=== PATIENT | male | born 1960 | race Caucasian/White ===

== ENCOUNTER 2018-08-17 19:27 | Inpatient (IN) | payer OTHER ==
[~2018-08-17] VITALS: Ht 185.4 cm; Wt 132.5 kg
[2018-08-17] MEDS ORDERED: PIPER-TAZO 3.375 GM IV (PMX) 100 ML IVPB ONE (22:00)
[2018-08-17] MEDS ORDERED: VANCOMYCIN 1 GM (PMX) 250 ML IVPB ONE (22:00)
[2018-08-17] MEDS ORDERED: CEFTRIAXONE 2 GM/50 ML (PMX) 50 ML IVPB ONE (22:00)
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
[2018-08-17] MEDS ORDERED: NACL 0.9% 3 ML SYG IV SCH (23:00)
[2018-08-17] MEDS ORDERED: BISACODYL (EC) 5 MG TAB PO PRN (23:00)
[2018-08-17] MEDS ORDERED: DOCUSATE SODIUM 100 MG CAP PO PRN (23:00)
[2018-08-17] MEDS ORDERED: ACETAMINOPHEN 325 MG TAB PO PRN (23:00)
[2018-08-17] MEDS ORDERED: ONDANSETRON 4 MG TAB PO PRN (23:00)
[2018-08-17] MEDS ORDERED: CEFTRIAXONE 2 GM INJ IM ONE (23:00)
[2018-08-17] MEDS ORDERED: HEPARIN 5,000 UNIT/1 ML VIAL SC SCH (23:00)
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
[2018-08-18] MEDS ORDERED: LIDOCAINE 1% (MPF) 5 ML VIAL SC ONE (02:00)
[2018-08-18] MEDS ORDERED: HYDROmorphONE 2 MG/ML SYG IM ONE (03:56)
[2018-08-18] MEDS: HYDROmorphONE 1 MG/ML SYG IM SCH ×6 (04:00→19:00)
[2018-08-18 04:31] VITALS: Ht 185.4 cm; Wt 132.5 kg
[2018-08-18] MEDS ORDERED: PENDING SANTYL ORDER FOR WOUND CARE XX PRN (06:30)
[2018-08-18] MEDS ORDERED: MEVA40 PO (06:59)
[2018-08-18] MEDS ORDERED: ALPR2TAB PO (06:59)
[2018-08-18] MEDS ORDERED: LOSA25TA2 PO (06:59)
[2018-08-18] MEDS ORDERED: ARIP10TA12 PO (06:59)
[2018-08-18 07:21] VITALS: BP 120/59; PULSE 55; RESP 18
[2018-08-18 08:35] VITALS: BP 143/64; PULSE 58; RESP 18
--- NOTE | 2018-08-18 14:31 | PN ---
Date/Time of Note Date/Time of Note DATE: 08/18/18 TIME: 14:27 Assessment/Plan VTE Prophylaxis Risk score (from Nsg)>0 risk: 4 SCD applied (from Ns): No SCD contraindicated: bilateral LE trauma Pharmacological prophylaxis: heparin Lines/Catheters Urinary Cath still in place: No Assessment/Plan Problems: (1) Infected skin ulcer limited to breakdown of skin Status: Acute Comment: Is on antibiotics. Please note there can be a fungal component to this as well and he will be treated with an antifungal agent. Representatives from the amputation prevention center will be seeing him today (2) Skin graft failure Status: Chronic Comment: Noted. (3) Bilateral cellulitis of lower leg Status: Acute Comment: On aggressive antibiotic therapy (4) Venous insufficiency of both lower extremities Status: Chronic Comment: Noted. Consideration for usage of pentoxifylline (5) Hx of osteomyelitis Status: Chronic Comment: Noted. I do not know that this is still an active issue (6) Obesity (BMI 30-39.9) Status: Chronic Comment: Calorie restriction diet (7) Peripheral edema Status: Acute Comment: Due to venous insufficiency (8) S/P IVC filter Status: Chronic Comment: Reported by patient. We have not done imaging to look for this (9) History of deep venous thrombosis (DVT) of distal vein of right lower extremity Status: Chronic Comment: Reported by patient. Our venous ultrasounds do not demonstrate any acuity. The patient states this happened at the local [facility] facility in [place] Result Diagram: 08/18/18 0553 08/18/18 0557 Results 24hrs Laboratory Tests Test 08/18/18 05:53 08/18/18 05:55 08/18/18 05:56 08/18/18 05:57 White Blood Count 6.2 Red Blood Count 4.56 L Hemoglobin 11.2 L Hematocrit 37.4 L Mean Corpuscular 82.0 Volume Mean Corpuscular 24.6 L Hemoglobin Mean Corpuscular 29.9 L Hemoglobin Concent Red Cell 15.2 H Distribution Width Platelet Count 309 Mean Platelet Volume 9.5 Immature 0.500 H Granulocytes % Neutrophils % 66.7 Lymphocytes % 23.0 Monocytes % 7.4 Eosinophils % 1.6 Basophils % 0.8 Nucleated Red Blood 0.0 Cells % Immature 0.030 Granulocytes # Neutrophils # 4.1 Lymphocytes # 1.4 Monocytes # 0.5 Eosinophils # 0.1 Basophils # 0.1 Nucleated Red Blood 0.0 Cells # Erythrocyte 32 H Sedimentation Rate Prothrombin Time 13.6 Prothrombin Time 1.1 Ratio INR International 1.03 Normalized Ratio Activated 23.5 Partial Thromboplast Time C-Reactive Protein 4.9 H 4.9 H Magnesium Level 2.1 Thyroid Stimulating 2.150 Hormone (TSH) Hemoglobin A1c 6.1 H Sodium Level 140 Potassium Level 3.9 Chloride Level 102 Carbon Dioxide Level 28 Anion Gap 10 Blood Urea Nitrogen 16 Creatinine 1.36 H Est Glomerular 54 L Filtrat Rate mL/min Glucose Level 153 Calcium Level 8.7 Total Bilirubin 0.4 Direct Bilirubin 0.00 Indirect Bilirubin 0.4 Aspartate Amino 29 Transf (AST/SGOT) Alanine 19 Aminotransferase (AL T/SGPT) Alkaline Phosphatase 147 H Total Protein 8.4 H Albumin 3.6 Globulin 4.80 H Albumin/Globulin 0.75 Ratio Lipase 46 Subjective 24 Hr Interval Summary Free Text/Dictation 58-year-old male admitted at the direction of Dr. Monroy from the [facility]. He was apparently seen there roughly on and advised to go the ER for admission. He presented there yesterday 2 days later. He has lower extremity wounds that have been worsening bilaterally much worse on the right than on the left. He has a history of venous insufficiency. Constitutional: no complaints (Eyes fevers chills or sweats) Respiratory: no complaints Cardiovascular: no complaints Gastrointestinal: no complaints Genitourinary: no complaints Exam/Review of Systems Exam Vitals Vital Signs Date Temp Pulse Resp B/P (MAP) Pulse Ox O2 O2 Flow FiO2 Time Delivery Rate 08/18/18 98.5 58 18 143/64 97 Room Air 08:35 (90) Exam Impulsive gentleman who removed all the dressings from both legs on his own repetitively Constitutional: alert, oriented Respiratory: clear to auscultation, normal air movement Cardiovascular: regular rate and rhythm, nl pulses Gastrointestinal: soft, nl liver, spleen, non-tender Extremities: other (Bilateral lower extremity skin breakdown ulcers with 2 separate ones on the right-hand side multiple scaly and flaking skin.) Results Results 24hrs Laboratory Tests Test 08/18/18 05:53 08/18/18 05:55 08/18/18 05:56 08/18/18 05:57 White Blood Count 6.2 Red Blood Count 4.56 L Hemoglobin 11.2 L Hematocrit 37.4 L Mean Corpuscular 82.0 Volume Mean Corpuscular 24.6 L Hemoglobin Mean Corpuscular 29.9 L Hemoglobin Concent Red Cell 15.2 H Distribution Width Platelet Count 309 Mean Platelet Volume 9.5 Immature 0.500 H Granulocytes % Neutrophils % 66.7 Lymphocytes % 23.0 Monocytes % 7.4 Eosinophils % 1.6 Basophils % 0.8 Nucleated Red Blood 0.0 Cells % Immature 0.030 Granulocytes # Neutrophils # 4.1 Lymphocytes # 1.4 Monocytes # 0.5 Eosinophils # 0.1 Basophils # 0.1 Nucleated Red Blood 0.0 Cells # Erythrocyte 32 H Sedimentation Rate Prothrombin Time 13.6 Prothrombin Time 1.1 Ratio INR International 1.03 Normalized Ratio Activated 23.5 Partial Thromboplast Time C-Reactive Protein 4.9 H 4.9 H Magnesium Level 2.1 Thyroid Stimulating 2.150 Hormone (TSH) Hemoglobin A1c 6.1 H Sodium Level 140 Potassium Level 3.9 Chloride Level 102 Carbon Dioxide Level 28 Anion Gap 10 Blood Urea Nitrogen 16 Creatinine 1.36 H Est Glomerular 54 L Filtrat Rate mL/min Glucose Level 153 Calcium Level 8.7 Total Bilirubin 0.4 Direct Bilirubin 0.00 Indirect Bilirubin 0.4 Aspartate Amino 29 Transf (AST/SGOT) Alanine 19 Aminotransferase (AL T/SGPT) Alkaline Phosphatase 147 H Total Protein 8.4 H Albumin 3.6 Globulin 4.80 H Albumin/Globulin 0.75 Ratio Lipase 46 Medications Medication Current Medications IV Flush (NS 3 ml) 3 ml PER PROTOCOL IV ; Start 08/17/18 at 23:00 Ondansetron HCl (Zofran Tab) 4 mg Q6H PRN PO NAUSEA/VOMITING; Start 08/17/18 at 23:00 Acetaminophen (Tylenol Tab) 650 mg Q6H PRN PO .PAIN 1-3 OR TEMP; Start 08/17/18 at 23:00 Acetaminophen/ Hydrocodone Bitart ([place] (5/325)) 1 tab Q6H PRN PO .MOD PAIN 4- 6; Start 08/17/18 at 23:00 Morphine Sulfate (morphine) 2 mg Q4H PRN IV .SEVERE PAIN 7-10; Start 08/17/18 at 23:00 Docusate Sodium (Colace) 100 mg Q12H PRN PO .CONSTIPATION; Start 08/17/18 at 23:00 Bisacodyl (Dulcolax) 5 mg DAILY PRN PO .CONSTIPATION; Start 08/17/18 at 23:00 Hydromorphone HCl (Dilaudid) 1 mg Q3H IM Last administered on 08/18/18at 11:53; Admin Dose 1 MG; Start 08/18/18 at 04:00 Miscellaneous Information (Pending [facility] Order For Wound Care) This patient ricardo... PRN PRN XX WOUND CARE; Start 08/18/18 at 06:30 GISELL MENDEZ MD Aug 18, 2018 14:31
[2018-08-18 15:06] VITALS: BP 150/73; PULSE 62; RESP 17
[2018-08-18] MEDS: ITRACONAZOLE 100 MG CAP PO SCH (16:38)
[2018-08-18 20:25] VITALS: BP 139/60; PULSE 57; RESP 18
[2018-08-18] MEDS ORDERED: HYDROmorphONE 2 MG TAB PO PRN (20:30)
[2018-08-18] MEDS ORDERED: CEFTRIAXONE 2 GM INJ IM ONE (20:30)
[2018-08-18] MEDS: PENTOXIFYLLINE (SR) 400 MG TAB PO SCH (20:54)
[2018-08-19] MEDS: SODIUM HYPOCHLORITE (1/40) 1 APPLIC BTL IRR SCH ×3 (01:05→21:52)
[2018-08-19] MEDS: ITRACONAZOLE 100 MG CAP PO SCH ×3 (01:06→21:51)
[2018-08-19] MEDS: HYDROmorphONE 2 MG TAB PO PRN ×5 (01:07→23:08)
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
[2018-08-19 02:30] VITALS: BP 164/85; PULSE 62; RESP 18
[2018-08-19 08:23] VITALS: BP 101/50; PULSE 52; RESP 17
[2018-08-19] MEDS: PENTOXIFYLLINE (SR) 400 MG TAB PO SCH ×3 (09:37→21:52)
[2018-08-19 15:20] VITALS: BP 128/60; PULSE 61; RESP 17
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
[2018-08-19] MEDS ORDERED: VANCOMYCIN IV PER PHARMACY XX SCH (15:30)
[2018-08-19] MEDS ORDERED: VANCOMYCIN HCL 2 GM in SOD CHLORIDE 0.9% 500 ML IVPB SCH (16:00)
--- NOTE | 2018-08-19 16:14 | SP ---
DATE OF PROCEDURE: PROCEDURE: Central line placement. INDICATION: No IV access and need for IV antibiotics. DESCRIPTION OF PROCEDURE: The patient was placed in Trendelenburg position. The left internal jugul ar site was cleaned and prepped in usual sterile manner. A 5 mL of 1% lidocaine was infiltrated into the skin. Using ultrasound guidance, the internal jugular vein was located. Large bore needle pass ed into the internal jugular vein followed by guidewire. Following Seldinger technique for dilatatio n, triple lumen catheter was passed over guidewire and secured into place. The patient had good flow through all 3 ports and no obvious initial complications. Post-central line placement chest x-ray h as been requested. Dictated By: KALYAN TRINH MD SV/CHUCK Conf#: [id number] DID#: [id number] CC: IRLANDA PÉREZ MD; HIRO PHAM MD;*EndCC*
[2018-08-19] MEDS: PIPER-TAZO 3.375 GM IV (PMX) 100 ML IVPB SCH (18:22)
[2018-08-19 19:30] VITALS: BP 122/59; PULSE 54; RESP 17
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
[2018-08-19] MEDS: morphine 2 MG INJ IV PRN (21:50)
[2018-08-19] MEDS: ATORVASTATIN 10 MG TAB PO SCH (21:51)
[2018-08-19] MEDS: LOSARTAN 25 MG TAB PO SCH (21:51)
[2018-08-19] MEDS: HEPARIN 5,000 UNIT/1 ML VIAL SC SCH (21:53)
[2018-08-20] MEDS: PIPER-TAZO 3.375 GM IV (PMX) 100 ML IVPB SCH ×4 (00:39→17:33)
[2018-08-20 01:54] VITALS: BP 110/55; PULSE 53; RESP 18
[2018-08-20] MEDS: VANCOMYCIN HCL 1.75 GM in SOD CHLORIDE 0.9% 500 ML IVPB SCH ×2 (05:55→18:42)
[2018-08-20 08:01] VITALS: BP 122/65; PULSE 50; RESP 18
[2018-08-20 08:37] VITALS: PULSE 55
[2018-08-20] MEDS: LOSARTAN 25 MG TAB PO SCH ×2 (09:00→21:00)
[2018-08-20] MEDS: SODIUM HYPOCHLORITE (1/40) 1 APPLIC BTL IRR SCH ×3 (09:00→21:06)
[2018-08-20] MEDS: ARIPIPRAZOLE 10 MG TAB PO SCH (09:12)
[2018-08-20] MEDS: ITRACONAZOLE 100 MG CAP PO SCH ×2 (09:14→21:01)
[2018-08-20] MEDS: PENTOXIFYLLINE (SR) 400 MG TAB PO SCH ×3 (09:17→21:01)
[2018-08-20] MEDS: HEPARIN 5,000 UNIT/1 ML VIAL SC SCH ×2 (09:17→21:02)
[2018-08-20] MEDS: HYDROmorphONE 2 MG TAB PO PRN ×4 (09:19→22:56)
--- NOTE | 2018-08-20 11:19 | CONS ---
Assessment/Plan Assessment/Plan Assessment/Plan (Daily) Bilateral lower extremity cellulitis. Venous stasis. Lymphedema. Failed inferior vena cava filter, right lower extremity. Pain. Degenerative joint disease, right knee. Venous insufficiency. Onychomycosis. Tinea pedis. Plan Continue with daily dressing changes. Plan for OR debridement with possible application of allograft and wound VAC. Keep patient NPO after midnight tonight. Wound cultures pending. Continue abx and antifungal therapy. Patient wound benefit from compression therapy. Consultation Date/Type/Reason Admit Date/Time Aug 17, 2018 at 22:54 Initial Consult Date Date/Time of Note DATE: 08/20/18 TIME: 24 HR Interval Summary Free Text/Dictation No acute events overnight. Exam/Review of Systems Exam Vitals Vital Signs Date Temp Pulse Resp B/P (MAP) Pulse Ox O2 O2 Flow FiO2 Time Delivery Rate 08/20/18 98.0 55 08:37 08/20/18 18 122/65 99 Room Air 08:01 (84) Intake and Output 08/19/18 08/19/18 08/20/18 1515:00 23:00 07:00 IntakeIntake Total 100 ml 700 ml OutputOutput Total 250 ml BalanceBalance -150 ml 700 ml Exam Bilateral lower extremity with lymphedema, venous stasis, dry skin. Wounds with extensive tissue loss on the right anterior to posterior lower leg measuring 15.5 x 15 x 0.5 cm with serous drainage, left anterior lower leg 15 x 11.5 x 0.5 cm. There is no tunneling or undermining. The patient with pain with light touch to the right lower extremity. The patient has 2+ DP pulse, PT is nonpalpable, 2+ popliteal pulses bilaterally. Mycotic nails with tinea present. Results Result Diagram: 08/20/18 0516 08/20/18 0516 Results 24hrs Laboratory Tests Test 08/20/18 05:16 White Blood Count 6.7 Red Blood Count 4.14 L Hemoglobin 10.2 L Hematocrit 34.1 L Mean Corpuscular Volume 82.4 Mean Corpuscular Hemoglobin 24.6 L Mean Corpuscular Hemoglobin Concent 29.9 L Red Cell Distribution Width 15.5 H Platelet Count 260 Mean Platelet Volume 9.9 Immature Granulocytes % 0.300 Neutrophils % 77.1 H Lymphocytes % 14.9 L Monocytes % 5.2 Eosinophils % 1.8 Basophils % 0.7 Nucleated Red Blood Cells % 0.0 Immature Granulocytes # 0.020 Neutrophils # 5.2 Lymphocytes # 1.0 Monocytes # 0.4 Eosinophils # 0.1 Basophils # 0.1 Nucleated Red Blood Cells # 0.0 Sodium Level 141 Potassium Level 3.9 Chloride Level 104 Carbon Dioxide Level 29 Anion Gap 8 Blood Urea Nitrogen 20 Creatinine 1.37 H Est Glomerular Filtrat Rate mL/min 53 L Glucose Level 134 Calcium Level 8.3 L Total Bilirubin 0.1 L Direct Bilirubin 0.00 Indirect Bilirubin 0.1 Aspartate Amino Transf (AST/SGOT) 21 Alanine Aminotransferase (ALT/SGPT) 28 Alkaline Phosphatase 132 H Total Protein 7.2 Albumin 3.0 L Globulin 4.20 H Albumin/Globulin Ratio 0.71 Medications Medication Current Medications IV Flush (NS 3 ml) 3 ml PER PROTOCOL IV ; Start 08/17/18 at 23:00 Ondansetron HCl (Zofran Tab) 4 mg Q6H PRN PO NAUSEA/VOMITING; Start 08/17/18 at 23:00 Acetaminophen (Tylenol Tab) 650 mg Q6H PRN PO .PAIN 1-3 OR TEMP; Start 08/17/18 at 23:00 Acetaminophen/ Hydrocodone Bitart ([place] (5/325)) 1 tab Q6H PRN PO .MOD PAIN 4- 6; Start 08/17/18 at 23:00 Morphine Sulfate (morphine) 2 mg Q4H PRN IV .SEVERE PAIN 7-10 Last administered on 08/19/18at 21:50; Admin Dose 2 MG; Start 08/17/18 at 23:00 Docusate Sodium (Colace) 100 mg Q12H PRN PO .CONSTIPATION; Start 08/17/18 at 23:00 Bisacodyl (Dulcolax) 5 mg DAILY PRN PO .CONSTIPATION; Start 08/17/18 at 23:00 [facility] This patient ricardo... PRN PRN XX WOUND CARE; Start 08/18/18 at 06:30 Itraconazole (Sporanox) 200 mg BID PO Last administered on 08/20/18at 09:14; Admin Dose 200 MG; Start 08/18/18 at 15:30; Stop 08/25/18 at 15:29 Pentoxifylline (Trental) 400 mg TID PO Last administered on 08/20/18 09:17; Admin Dose 400 MG; Start 08/18/18 at 21:00 Hydromorphone HCl (Dilaudid) 3 mg Q4H PRN PO SEVERE PAIN LEVEL 7-10 Last administered on 08/20/18 09:19; Admin Dose 3 MG; Start 08/19/18 at 00:30 Sodium Hypochlorite (Dakin'S (Dilute )) 1 applic BID IRR Last administered on 08/19/18 21:52; Admin Dose 1 APPLIC; Start 08/18/18 at 23:00 Aripiprazole (Abilify) 10 mg DAILY PO Last administered on 08/20/18 09:12; Admin Dose 10 MG; Start 08/20/18 at 09:00 Losartan Potassium (Cozaar) 25 mg BID PO Last administered on 08/19/18 21:51; Admin Dose 25 MG; Start 08/19/18 at 21:00 Atorvastatin Calcium (Lipitor) 10 mg DAILY@21 PO Last administered on 08/19/18 21:51; Admin Dose 10 MG; Start 08/19/18 at 21:00 Heparin Sodium (Porcine) (Heparin (5000 Units/1ml)) 5,000 unit BID SC Last administered on 08/20/18 09:17; Admin Dose 5,000 UNIT; Start 08/19/18 at 21:00 Vancomycin HCl (Vanco Iv Per Pharmacy) VANCOMYCIN PER PHARMACY PER PROTOCOL XX ; Start 08/19/18 at 15:30 Piperacillin Sod/ Tazobactam Sod 100 ml @ 200 mls/hr Q6 IVPB Last administered on 08/20/18 05:11; Admin Dose 200 MLS/HR; Start 08/19/18 at 18:00 Vancomycin HCl 1.75 gm/Sodium Chloride 500 ml @ 125 mls/hr Q12H IVPB Last administered on 08/20/18 05:55; Admin Dose 125 MLS/HR; Start 08/20/18 at 06:00 ROSEANNE BAIRD DPM Aug 20, 2018 11:19
--- NOTE | 2018-08-20 12:48 | PREAC ---
Date/Time of Note Date/Time of Note DATE: 08/20/18 TIME: 12:47 Anesthesia Eval and Record Evaluation Time Pre-Procedure Interview DATE: 08/20/18 TIME: 12:47 Age 58 Sex male NPO: 8 hrs Preoperative diagnosis Bilateral lower extremity cellulitis. Planned procedure BILATERAL LOWER EXTREMITY DEBRIEDMENT Past Medical History Past Medical History: Includes Cardio: HTN, Dyslipidemia GI: Morbid obesity Surgery & Anesthesia Issues No known issue Meds Anticoagulation: No Beta Richard within 24 hr: No Reason Beta Richard not given: Pt. not on B-Richard Reported Medications Aripiprazole* (Abilify*) 10 Mg Tablet, 10 MG PO DAILY, #30 TAB 08/18/18 Alprazolam* (Xanax*) 2 Mg Tablet, 2 MG PO TID, TAB 08/18/18 Losartan Potassium* (Cozaar*) 25 Mg Tablet, 25 MG PO BID, #60 TAB 08/18/18 Lovastatin (Lovastatin) 40 Mg Tablet, 30 MG PO HS, TAB 08/18/18 Current Medications IV Flush (NS 3 ml) 3 ml PER PROTOCOL IV ; Start 08/17/18 at 23:00 Ondansetron HCl (Zofran Tab) 4 mg Q6H PRN PO NAUSEA/VOMITING; Start 08/17/18 at 23:00 Acetaminophen (Tylenol Tab) 650 mg Q6H PRN PO .PAIN 1-3 OR TEMP; Start 08/17/18 at 23:00 Acetaminophen/ Hydrocodone Bitart ([place] (5/325)) 1 tab Q6H PRN PO .MOD PAIN 4- 6; Start 08/17/18 at 23:00 Morphine Sulfate (morphine) 2 mg Q4H PRN IV .SEVERE PAIN 7-10 Last administered on 08/19/18at 21:50; Admin Dose 2 MG; Start 08/17/18 at 23:00 Docusate Sodium (Colace) 100 mg Q12H PRN PO .CONSTIPATION; Start 08/17/18 at 23 :00 Bisacodyl (Dulcolax) 5 mg DAILY PRN PO .CONSTIPATION; Start 08/17/18 at 23:00 [facility] This patient ricardo... PRN PRN XX WOUND CARE; Start 08/18/18 at 06:30 Itraconazole (Sporanox) 200 mg BID PO Last administered on 08/20/18 09:14; Admin Dose 200 MG; Start 08/18/18 at 15:30; Stop 08/25/18 at 15:29 Pentoxifylline (Trental) 400 mg TID PO Last administered on 08/20/18 09:17; Admin Dose 400 MG; Start 08/18/18 at 21:00 Hydromorphone HCl (Dilaudid) 3 mg Q4H PRN PO SEVERE PAIN LEVEL 7-10 Last administered on 08/20/18 09:19; Admin Dose 3 MG; Start 08/19/18 at 00:30 Sodium Hypochlorite (Dakin'S (Dilute )) 1 applic BID IRR Last administered on 08/19/18 21:52; Admin Dose 1 APPLIC; Start 08/18/18 at 23:00 Aripiprazole (Abilify) 10 mg DAILY PO Last administered on 08/20/18 09:12; Admin Dose 10 MG; Start 08/20/18 at 09:00 Losartan Potassium (Cozaar) 25 mg BID PO Last administered on 08/19/18 21:51; Admin Dose 25 MG; Start 08/19/18 at 21:00 Atorvastatin Calcium (Lipitor) 10 mg DAILY@21 PO Last administered on 08/19/18 21:51; Admin Dose 10 MG; Start 08/19/18 at 21:00 Heparin Sodium (Porcine) (Heparin (5000 Units/1ml)) 5,000 unit BID SC Last administered on 08/20/18 09:17; Admin Dose 5,000 UNIT; Start 08/19/18 at 21:00 Vancomycin HCl (Vanco Iv Per Pharmacy) VANCOMYCIN PER PHARMACY PER PROTOCOL XX ; Start 08/19/18 at 15:30 Piperacillin Sod/ Tazobactam Sod 100 ml @ 200 mls/hr Q6 IVPB Last administered on 08/20/18 05:11; Admin Dose 200 MLS/HR; Start 08/19/18 at 18:00 Vancomycin HCl 1.75 gm/Sodium Chloride 500 ml @ 125 mls/hr Q12H IVPB Last administered on 08/20/18 05:55; Admin Dose 125 MLS/HR; Start 08/20/18 at 06:00 Meds reviewed: Yes Allergies Coded Allergies: Phenothiazines (Verified Allergy, Intermediate, 08/18/18) prochlorperazine (Verified Allergy, Intermediate, 08/18/18) Allergies Reviewed: Yes Labs/Studies Labs Reviewed: Reviewed by anesthesiologist Result Diagram: 08/20/18 0516 08/20/18 0516 Laboratory Tests 08/20/18 05:16 test: N/A Studies: CXR (Cardiac silhouette upper limits of normal in size, otherwise no acute findings. ) Pre-procedure Exam Last vitals Vital Signs Date Temp Pulse Resp B/P (MAP) Pulse Ox O2 O2 Flow FiO2 Time Delivery Rate 08/20/18 98.0 55 08:37 08/20/18 18 122/65 99 Room Air 08:01 (84) Airway: Adequate mouth opening Mallampati: Mallampati II Teeth: Normal Lung: Normal Heart: Normal ASA Physical Status ASA physical status: 3 Emergency: None Planned Anesthetic General/MAC: ETT Pre-operative Attestations Prior to commencing anesthesia and surgery, the patient was re-evaluated, there was verification of: *The patient's identity *The results of appropriate recent lab work and preoperative vital signs *The above evaluation not changing prior to induction *Anesthetic plan, risk benefits, alternative and complications discussed with patient/family; questions answered; patient/family understands, accepts and wishes to proceed. RABIA HUERTA Aug 20, 2018 12:48
[2018-08-20 14:00] VITALS: BP 133/60; PULSE 57; RESP 19
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
--- NOTE | 2018-08-20 18:57 | CONS ---
Assessment/Plan Assessment/Plan Hospital Course (Demo Recall) No acute changes overnight patient is sleeping looks comfortable no fevers vital signs stable BUN 20 creatinine 1.37 WBC 6.7 platelets 260 neutrophils 77.1 Microbiology: Wound culture growing gram-negative rods and diphtheroids Indwelling: Left IJ triple-lumen catheter Antimicrobials: Vanco Zosyn PHYSICAL EXAMINATION: GENERAL: Well-developed, obese, middle-aged man who is in no distress. HEENT: Head is atraumatic, normocephalic. NECK: Supple. CHEST: Rise symmetrical. Breath sounds clear, diminished to bases. HEART: S1, S2. ABDOMEN: Soft. Bowel tones are present. EXTREMITIES: With bilateral lower extremities edema, below knee with dressings intact and some drainage present. Assessment: 1. Acute on chronic bilateral lower extremity cellulitis with chronic venous stasis 2. Obesity 3. Acute kidney injury 4. Hypertension 5. History of DVT Plan: Patient is stable, continue present care and antibiotics, await for final cultures, follow podiatry recommendations Consultation Date/Type/Reason Admit Date/Time Aug 17, 2018 at 22:54 Initial Consult Date Type of Consult id Date/Time of Note DATE: 08/20/18 TIME: 18:53 Exam/Review of Systems Exam Vitals Vital Signs Date Temp Pulse Resp B/P (MAP) Pulse Ox O2 O2 Flow FiO2 Time Delivery Rate 08/20/18 98.0 57 19 133/60 98 Room Air 14:00 (84) Intake and Output 08/19/18 08/19/18 08/20/18 1515:00 23:00 07:00 IntakeIntake Total 100 ml 700 ml OutputOutput Total 250 ml BalanceBalance -150 ml 700 ml Results Result Diagram: 08/20/18 0516 08/20/18 0516 Results 24hrs Laboratory Tests Test 08/20/18 05:14 08/20/18 05:16 Iron Level 27 L Total Iron Binding Capacity 270 Percent Iron Saturation 10 L White Blood Count 6.7 Red Blood Count 4.14 L Hemoglobin 10.2 L Hematocrit 34.1 L Mean Corpuscular Volume 82.4 Mean Corpuscular Hemoglobin 24.6 L Mean Corpuscular Hemoglobin Concent 29.9 L Red Cell Distribution Width 15.5 H Platelet Count 260 Mean Platelet Volume 9.9 Immature Granulocytes % 0.300 Neutrophils % 77.1 H Lymphocytes % 14.9 L Monocytes % 5.2 Eosinophils % 1.8 Basophils % 0.7 Nucleated Red Blood Cells % 0.0 Immature Granulocytes # 0.020 Neutrophils # 5.2 Lymphocytes # 1.0 Monocytes # 0.4 Eosinophils # 0.1 Basophils # 0.1 Nucleated Red Blood Cells # 0.0 Sodium Level 141 Potassium Level 3.9 Chloride Level 104 Carbon Dioxide Level 29 Anion Gap 8 Blood Urea Nitrogen 20 Creatinine 1.37 H Est Glomerular Filtrat Rate mL/min 53 L Glucose Level 134 Calcium Level 8.3 L Total Bilirubin 0.1 L Direct Bilirubin 0.00 Indirect Bilirubin 0.1 Aspartate Amino Transf (AST/SGOT) 21 Alanine Aminotransferase (ALT/SGPT) 28 Alkaline Phosphatase 132 H Total Protein 7.2 Albumin 3.0 L Globulin 4.20 H Albumin/Globulin Ratio 0.71 Medications Medication Current Medications IV Flush (NS 3 ml) 3 ml PER PROTOCOL IV ; Start 08/17/18 at 23:00 Ondansetron HCl (Zofran Tab) 4 mg Q6H PRN PO NAUSEA/VOMITING; Start 08/17/18 at 23:00 Acetaminophen (Tylenol Tab) 650 mg Q6H PRN PO .PAIN 1-3 OR TEMP; Start 08/17/18 at 23:00 Acetaminophen/ Hydrocodone Bitart ([place] (5/325)) 1 tab Q6H PRN PO .MOD PAIN 4- 6; Start 08/17/18 at 23:00 Morphine Sulfate (morphine) 2 mg Q4H PRN IV .SEVERE PAIN 7-10 Last administered on 08/19/18at 21:50; Admin Dose 2 MG; Start 08/17/18 at 23:00 Docusate Sodium (Colace) 100 mg Q12H PRN PO .CONSTIPATION; Start 08/17/18 at 23:00 Bisacodyl (Dulcolax) 5 mg DAILY PRN PO .CONSTIPATION; Start 08/17/18 at 23:00 [facility]isc[facility] This patient ricardo... PRN PRN XX WOUND CARE; Start 08/18/18 at 06:30 Itraconazole (Sporanox) 200 mg BID PO Last administered on 08/20/18at 09:14; Admin Dose 200 MG; Start 08/18/18 at 15:30; Stop 08/25/18 at 15:29 Pentoxifylline (Trental) 400 mg TID PO Last administered on 08/20/18 13:12; Admin Dose 400 MG; Start 08/18/18 at 21:00 Hydromorphone HCl (Dilaudid) 3 mg Q4H PRN PO SEVERE PAIN LEVEL 7-10 Last a dministered on 08/20/18 17:34; Admin Dose 3 MG; Start 08/19/18 at 00:30 Sodium Hypochlorite (Dakin'S (Dilute )) 1 applic BID IRR Last administered on 08/20/18 16:36; Admin Dose 1 APPLIC; Start 08/18/18 at 23:00 Aripiprazole (Abilify) 10 mg DAILY PO Last administered on 08/20/18 09:12; Admin Dose 10 MG; Start 08/20/18 at 09:00 Losartan Potassium (Cozaar) 25 mg BID PO Last administered on 08/19/18 21:51; Admin Dose 25 MG; Start 08/19/18 at 21:00 Atorvastatin Calcium (Lipitor) 10 mg DAILY@21 PO Last administered on 08/19/18 21:51; Admin Dose 10 MG; Start 08/19/18 at 21:00 Heparin Sodium (Porcine) (Heparin (5000 Units/1ml)) 5,000 unit BID SC Last administered on 08/20/18 09:17; Admin Dose 5,000 UNIT; Start 08/19/18 at 21:00 Vancomycin HCl (Vanco Iv Per Pharmacy) VANCOMYCIN PER PHARMACY PER PROTOCOL XX ; Start 08/19/18 at 15:30 Piperacillin Sod/ Tazobactam Sod 100 ml @ 200 mls/hr Q6 IVPB Last administered on 08/20/18 17:33; Admin Dose 200 MLS/HR; Start 08/19/18 at 18:00 Vancomycin HCl 1.75 gm/Sodium Chloride 500 ml @ 125 mls/hr Q12H IVPB Last administered on 08/20/18 18:42; Admin Dose 125 MLS/HR; Start 08/20/18 at 06:00 Miscellaneous Information (*Rx Drug Level Order Reminder*) 1 ONCE ONCE XX ; Start 08/21/18 at 05:00; Stop 08/21/18 at 05:01 SEAN YANEZ NP Aug 20, 2018 18:57
[2018-08-20 19:30] VITALS: BP 135/65; PULSE 55; RESP 20
[2018-08-20] MEDS: ATORVASTATIN 10 MG TAB PO SCH (21:01)
[2018-08-20 22:54] VITALS: PULSE 67
[2018-08-21] VITALS (17 sets, daily range): BP systolic 115–169; BP diastolic 58–86; PULSE 55–62; RESP 10–19
[2018-08-21] MEDS: PIPER-TAZO 3.375 GM IV (PMX) 100 ML IVPB SCH ×3 (00:03→12:18)
[2018-08-21] MEDS: morphine 2 MG INJ IV PRN ×3 (00:08→22:53)
[2018-08-21] MEDS: HYDROmorphONE 2 MG TAB PO PRN ×4 (04:36→21:05)
[2018-08-21] MEDS: VANCOMYCIN HCL 1.75 GM in SOD CHLORIDE 0.9% 500 ML IVPB SCH ×2 (06:00→18:18)
[2018-08-21] MEDS ORDERED: ONDANSETRON 4 MG INJ ONE (07:00)
[2018-08-21] MEDS ORDERED: MIDAZOLAM 1 MG/ML 2 ML INJ ONE (07:26)
[2018-08-21] MEDS ORDERED: PROPOFOL 20 ML ONE (07:26)
[2018-08-21] MEDS ORDERED: FENTAnyl 50 MCG/ML VIAL ONE (07:26)
[2018-08-21] MEDS ORDERED: ROPIVACAINE 0.2% 20 ML VIAL ONE (07:29)
[2018-08-21] MEDS ORDERED: METOCLOPRAMIDE 10 MG INJ ONE (07:34)
--- NOTE | 2018-08-21 08:04 | HPN ---
Date/Time of Note Date/Time of Note DATE: 08/21/18 TIME: 08:04 Interval H&P Admission Note Pt. seen H&P reviewed: No system changes ROSEANNE BAIRD DPM Aug 21, 2018 08:04
[2018-08-21] MEDS ORDERED: POLYMYXIN/BACITRACIN 1L IRRIG IRR ONE ×2 (08:43)
[2018-08-21] MEDS ORDERED: BACITRACIN 50000 UNITS INJ IRR ONE (08:43)
[2018-08-21] MEDS: PENTOXIFYLLINE (SR) 400 MG TAB PO SCH ×3 (09:00→21:29)
[2018-08-21] MEDS: ITRACONAZOLE 100 MG CAP PO SCH ×2 (09:00→21:29)
[2018-08-21] MEDS: HEPARIN 5,000 UNIT/1 ML VIAL SC SCH ×2 (09:00→21:28)
[2018-08-21] MEDS: ARIPIPRAZOLE 10 MG TAB PO SCH (09:00)
[2018-08-21] MEDS: LOSARTAN 25 MG TAB PO SCH ×2 (09:00→21:30)
[2018-08-21] MEDS: SODIUM HYPOCHLORITE (1/40) 1 APPLIC BTL IRR SCH ×2 (09:00→21:00)
[2018-08-21] MEDS ORDERED: LIDOCAINE 2% (SDV) 5 ML INJ ONE (09:11)
--- NOTE | 2018-08-21 09:18 | PN ---
DATE: 08/21/2018 SUBJECTIVE: The patient is stable, no events overnight. OBJECTIVE: VITAL SIGNS: Blood pressure is 122/58, respirations 18, pulse 65, temperature 98.0. HEENT: Head is normocephalic. NECK: Supple. HEART: Regular rate. LUNGS: Show diminished breath sounds at the base. ABDOMEN: Soft, nontender to palpation without rebound or guarding. EXTREMITIES: Negative for clubbing, cyanosis. Positive edema. DERMATOLOGIC: No rashes. MUSCULOSKELETAL: No joint effusion. NEUROLOGIC: No change in exam. MEDICATIONS: Reviewed. LABORATORY DATA: From 08/21/2018 was reviewed. IMAGING STUDY: The patient's renal ultrasound shows bilateral cortical thinning. No evidence of hyd ronephrosis. ASSESSMENT AND PLAN: 1. Nonoliguric acute kidney injury on top of chronic kidney disease with unknown baseline creatinine . Etiology of acute kidney injury is possibly hemodynamics. The patient's renal ultrasound does linn w increased echogenicity consistent with possible chronic kidney disease. The patient's urinalysis, urine electrolytes are still pending. Recommendation at this point is to continue current treatment plans, supportive care, renally dose all medicines. We would consider adjusting antibiotic therapy, possibly discontinue vancomycin. We will continue to monitor closely. 2. Chronic kidney disease. Underlying etiology is unclear, possibly due to previous nephrotoxicity, questionable renal artery stenosis. The patient's renal ultrasound did show poor blood flow from th e renal vasculature. We will consider obtaining an arterial renal ultrasound. 3. Anemia. Continue to monitor hemoglobin and hematocrit levels. The patient has evidence of iron deficiency. We will consider starting IV iron. 4. Mineral bone disorder. Monitor calcium and phosphorus levels. 5. Bilateral lower extremity cellulitis. Continue current antibiotic regimen. Follow up with podanthony try. Continue wound care. 6. Chronic venous stasis. Continue medical management. 7. History of deep venous thrombosis, status post inferior vena cava filter placement. 8. Hypertension. Continue current blood pressure regimen. 9. Dyslipidemia. Continue statin therapy. 10. Depression. Continue current medical management. Dictated By: LUIS ABDI DO NR/NTS Conf#: [id number] DID#: [id number] CC: IRLANDA PÉREZ MD; HIRO PHAM MD;*EndCC*
--- NOTE | 2018-08-21 10:01 | SIPON ---
Date/Time of Note Date/Time of Note DATE: 08/21/18 TIME: 10:00 Operative Report Preoperative Diagnosis bilateral lower extremity venous ulceration Venous insufficiency Edema lymphaedema Postoperative Diagnosis bilateral lower extremity venous ulceration Venous insufficiency Edema lymphaedema Operation/Procedure Performed bilateral lower extremity excisional debridement application of skin allograft application of wound VAC Surgeon Niranjan Baird DPM phys assistant none Anesthesia: general Estimated blood loss: 0 - 10 ml's Transfusion Required none Specimen bilateral wound pathology bilateral post lavage cultures Grafts/Implants none Complications none NIRANJAN BAIRD DPM Aug 21, 2018 10:01
--- NOTE | 2018-08-21 10:03 | OPR ---
Date/Time of Note Date/Time of Note DATE: 08/21/18 TIME: 10:02 Operative Report Preoperative Diagnosis bilateral lower extremity venous ulceration Venous insufficiency Edema lymphaedema Postoperative Diagnosis bilateral lower extremity venous ulceration Venous insufficiency Edema lymphaedema Operation/Procedure Performed bilateral lower extremity excisional debridement application of skin allograft application of wound VAC Surgeon Niranjan Baird DPM Flake Drier none Anesthesia Type: general Estimated Blood Loss: 0 - 10 ml's Transfusion none Specimen bilateral wound pathology bilateral post lavage cultures Grafts/Implants Primatrix Ag skin allograft bilateral lower extremities. Complications none Indications 58 y/o M patient with chronic venous ulcerations, edema, and venous insufficiency had failed conservative local wound care is amenable to surgical intervention at this time. All of the patient's questions and concerns were addressed, no promises or guarantees were given. Procedure Description Patient was brought into the OR and placed on the OR table in the supine position. A preoperative lower extremity block was performed bilaterally by the anesthesia team. The bilateral lower extremities were scrubbed, prepped, and draped in the usual aseptic manner. Attention was directed to the left lower extremity ulceration site which measured 15 x 10.5 x 0.3cm, wound base was fibrogranular and surrounding hyperkeratotic tissue and skin slough was appreciated. There was no purulence, no probing to bone, and no proximal streaking appreciated. There were hemosiderin deposits appreciated. Excisional debridement of skin/subq of the left venous ulcerations using a curette and versajet. Fibrotic tissue, hyperkeratotic tissue, biofilm, and slough was removed from the wound bed. Greater than 100cm2 of area was debrided. Copious antibiotic infused pulse lavage was used for irrigation at the ulceration site. Left wound pathology s pecimen and post lavage cultures were obtained. A skin allograft was applied to the left lower extremity ulcer site and secured with skin eva. Xeroform and dry sterile dressings with compression was applied along with a wound VAC set at 125mmHg low continuous therapy. Next, attention was directed to the right lower extremity ulceration site which measured 16 x 14.5 x 0.3cm, wound base was fibrogranular and surrounding hyperkeratotic tissue and skin slough was appreciated. There was no purulence, no probing to bone, and no proximal streaking appreciated. There were hemosiderin deposits appreciated. Excisional debridement of skin/subq of the right venous ulcerations using a curette and versajet. Fibrotic tissue, hyperkeratotic tissue, biofilm, and slough was removed from the wound bed. Greater than 100cm2 of area was debrided. Copious antibiotic infused pulse lavage was used for irrigation at the ulceration site. Right wound pathology specimen and post lavage cultures were obtained. A skin allograft was applied to the right lower extremity ulcer site and secured with skin eva. Xeroform and dry sterile dressings with compression was applied along with a wound VAC set at 125mmHg low continuous therapy. Patient was transferred to PACU with vital signs stable and neurovascular status intact. NIRANJAN BAIRD DPM Aug 21, 2018 10:03
[2018-08-21] MEDS ORDERED: IPRATROPIUM (NEB) 0.5 MG/2.5 ML AMP HHN PRN (10:30)
[2018-08-21] MEDS ORDERED: LORAZEPAM 2 MG INJ IV PRN (10:30)
[2018-08-21] MEDS ORDERED: MIDAZOLAM 1 MG/ML 2 ML INJ IV PRN (10:30)
[2018-08-21] MEDS ORDERED: MEPERIDINE 25 MG INJ IV PRN (10:30)
[2018-08-21] MEDS ORDERED: hydrALAzine 20 MG INJ IV PRN (10:30)
[2018-08-21] MEDS ORDERED: HYDROmorphONE 1 MG/5 ML IV SYRINGE IV PRN ×2 (10:30)
[2018-08-21] MEDS ORDERED: FENTAnyl 50 MCG/ML VIAL IV PRN ×2 (10:30)
[2018-08-21] MEDS ORDERED: ONDANSETRON 4 MG INJ IV PRN (10:30)
[2018-08-21] MEDS ORDERED: LABETALOL HCL 20MG INJ IV PRN (10:30)
[2018-08-21] MEDS ORDERED: LEVALBUTEROL (NEB) 1.25 MG/0.5 ML AMP HHN PRN (10:30)
[2018-08-21] MEDS ORDERED: DIPHENHYDRAMINE 50 MG INJ IV PRN (10:30)
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
--- NOTE | 2018-08-21 14:02 | CONS ---
Assessment/Plan Assessment/Plan Hospital Course (Demo Recall) No acute changes patient is awake looks comfortable no fevers overnight he is status post bilateral lower extremity debridement with skin allograft application and wound VAC placement this morning. Microbiology: Wound culture growing pseudomonas aeruginosa, staph aureus, Corynebacterium species Indwelling: Left IJ triple-lumen catheter Antimicrobials: Vanco Zosyn PHYSICAL EXAMINATION: GENERAL: Well-developed, obese, middle-aged man who is in no distress. HEENT: Head is atraumatic, normocephalic. NECK: Supple. CHEST: Rise symmetrical. Breath sounds clear, diminished to bases. HEART: S1, S2. ABDOMEN: Soft. Bowel tones are present. EXTREMITIES: With bilateral lower extremities edema, below knee with dressings intact and some drainage present. Assessment: 1. Acute on chronic bilateral lower extremity cellulitis with chronic venous stasis 2. Obesity 3. Acute kidney injury 4. Hypertension 5. History of DVT Plan: Stable post procedure, change Zosyn to cefepime, await for final cultures, local wound care per podiatry, vascular recommendations Consultation Date/Type/Reason Admit Date/Time Aug 17, 2018 at 22:54 Initial Consult Date Type of Consult id Date/Time of Note DATE: 08/21/18 TIME: 14:01 Exam/Review of Systems Exam Vitals Vital Signs Date Temp Pulse Resp B/P (MAP) Pulse Ox O2 O2 Flow FiO2 Time Delivery Rate 08/21/18 98.0 62 19 132/60 92 Room Air 11:45 (84) 08/21/18 6.0 10:15 Intake and Output 08/20/18 08/20/18 08/21/18 1515:00 23:00 07:00 IntakeIntake Total 600 ml 600 ml 700 ml OutputOutput Total 400 ml BalanceBalance 600 ml 200 ml 700 ml Results Result Diagram: 08/21/18 0507 08/21/18 0507 Results 24hrs Laboratory Tests Test 08/21/18 05:07 White Blood Count 6.9 Red Blood Count 4.52 L Hemoglobin 11.1 L Hematocrit 36.4 L Mean Corpuscular Volume 80.5 L Mean Corpuscular Hemoglobin 24.6 L Mean Corpuscular Hemoglobin Concent 30.5 L Red Cell Distribution Width 15.4 H Platelet Count 285 Mean Platelet Volume 9.9 Immature Granulocytes % 0.400 Neutrophils % 73.5 Lymphocytes % 18.5 Monocytes % 4.8 Eosinophils % 2.2 Basophils % 0.6 Nucleated Red Blood Cells % 0.0 Immature Granulocytes # 0.030 Neutrophils # 5.1 Lymphocytes # 1.3 Monocytes # 0.3 Eosinophils # 0.2 Basophils # 0.0 Nucleated Red Blood Cells # 0.0 Sodium Level 139 Potassium Level 4.2 Chloride Level 101 Carbon Dioxide Level 27 Anion Gap 11 Blood Urea Nitrogen 17 Creatinine 1.29 H Est Glomerular Filtrat Rate mL/min 57 L Glucose Level 114 Calcium Level 8.8 Phosphorus Level 3.8 Magnesium Level 1.9 Total Bilirubin 0.4 Direct Bilirubin 0.00 Indirect Bilirubin 0.4 Aspartate Amino Transf (AST/SGOT) 22 Alanine Aminotransferase (ALT/SGPT) 19 Alkaline Phosphatase 145 H Total Protein 8.2 H Albumin 3.5 Globulin 4.70 H Albumin/Globulin Ratio 0.74 Vancomycin Level Trough 15.4 Medications Medication Current Medications IV Flush (NS 3 ml) 3 ml PER PROTOCOL IV ; Start 08/17/18 at 23:00 Ondansetron HCl (Zofran Tab) 4 mg Q6H PRN PO NAUSEA/VOMITING; Start 08/17/18 at 23:00 Acetaminophen (Tylenol Tab) 650 mg Q6H PRN PO .PAIN 1-3 OR TEMP; Start 08/17/18 at 23:00 Acetaminophen/ Hydrocodone Bitart ([place] (5/325)) 1 tab Q6H PRN PO .MOD PAIN 4- 6; Start 08/17/18 at 23:00 Morphine Sulfate (morphine) 2 mg Q4H PRN IV .SEVERE PAIN 7-10 Last administered on 08/21/18at 00:08; Admin Dose 2 MG; Start 08/17/18 at 23:00 Docusate Sodium (Colace) 100 mg Q12H PRN PO .CONSTIPATION; Start 08/17/18 at 23:00 Bisacodyl (Dulcolax) 5 mg DAILY PRN PO .CONSTIPATION; Start 08/17/18 at 23:00 Miscellaneous Information (Pending Santyl Order For Wound Care) This patient ricardo... PRN PRN XX WOUND CARE; Start 08/18/18 at 06:30 Itraconazole (Sporanox) 200 mg BID PO Last administered on 08/20/18at 21:01; Admin Dose 200 MG; Start 08/18/18 at 15:30; Stop 08/25/18 at 15:29 Pentoxifylline (Trental) 400 mg TID PO Last administered on 08/21/18 12:18; Admin Dose 400 MG; Start 08/18/18 at 21:00 Hydromorphone HCl (Dilaudid) 3 mg Q4H PRN PO SEVERE PAIN LEVEL 7-10 Last administered on 08/21/18 12:19; Admin Dose 3 MG; Start 08/19/18 at 00:30 Sodium Hypochlorite (Dakin'S (Dilute )) 1 applic BID IRR Last administered on 08/20/18 21:06; Admin Dose 1 APPLIC; Start 08/18/18 at 23:00 Aripiprazole (Abilify) 10 mg DAILY PO Last administered on 08/20/18 09:12; Admin Dose 10 MG; Start 08/20/18 at 09:00 Losartan Potassium (Cozaar) 25 mg BID PO Last administered on 08/19/18 21:51; Admin Dose 25 MG; Start 08/19/18 at 21:00 Atorvastatin Calcium (Lipitor) 10 mg DAILY@21 PO Last administered on 08/20/18 21:01; Admin Dose 10 MG; Start 08/19/18 at 21:00 Heparin Sodium (Porcine) (Heparin (5000 Units/1ml)) 5,000 unit BID SC Last administered on 08/20/18 21:02; Admin Dose 5,000 UNIT; Start 08/19/18 at 21:00 Vancomycin HCl (Vanco Iv Per Pharmacy) VANCOMYCIN PER PHARMACY PER PROTOCOL XX ; Start 08/19/18 at 15:30 Piperacillin Sod/ Tazobactam Sod 100 ml @ 200 mls/hr Q6 IVPB Last administered on 08/21/18 12:18; Admin Dose 200 MLS/HR; Start 08/19/18 at 18:00 Vancomycin HCl 1.75 gm/Sodium Chloride 500 ml @ 125 mls/hr Q12H IVPB Last administered on 08/20/18at 18:42; Admin Dose 125 MLS/HR; Start 08/20/18 at 06:00 Hydromorphone HCl (Dilaudid) 0.2 mg PACU PRN IV MILD PAIN 1-3; Start 08/21/18 at 10:30; Stop 08/21/18 at 15:00 Hydromorphone HCl (Dilaudid) 0.4 mg PACU PRN IV MOD PAIN 4-6; Start 08/21/18 at 10:30; Stop 08/21/18 at 15:00 Fentanyl (Sublimaze) 25 mcg PACU ORDER PRN IV MILD PAIN 1-3; Start 08/21/18 at 10:30; Stop 08/21/18 at 15:00 Fentanyl (Sublimaze) 50 mcg PACU ORDER PRN IV MOD PAIN 4-6; Start 08/21/18 at 10:30; Stop 08/21/18 at 15:00 Ondansetron HCl (Zofran Inj) 4 mg PACU ORDER PRN IV NAUSEA/VOMITING; Start 08/21/18 at 10:30; Stop 08/21/18 at 15:00 Labetalol HCl (Labetalol) 5 mg PACU ORDER PRN IV HIGH BLOOD PRESSURE; Start 08/21/18 at 10:30; Stop 08/21/18 at 15:00 Hydralazine HCl (Apresoline) 5 mg PACU ORDER PRN IV HIGH BLOOD PRESSURE; Start 08/21/18 at 10:30; Stop 08/21/18 at 15:00 Levalbuterol (Xopenex Neb) 1.25 mg PACU ORDER PRN HHN .WHEEZING; Start 08/21/18 at 10:30; Stop 08/21/18 at 15:00 Ipratropium [place] (Atrovent 0.02% (Neb)) 0.5 mg PACU ORDER PRN HHN .WHEEZING; Start 08/21/18 at 10:30; Stop 08/21/18 at 15:00 Meperidine HCl (Demerol) 25 mg PACU ORDER PRN IV .RIGORS; Start 08/21/18 at 10:30; Stop 08/21/18 at 15:00 Diphenhydramine HCl (Benadryl) 25 mg PACU ORDER PRN IV .PRURITUS; Start 08/21/18 at 10:30; Stop 08/21/18 at 15:00 Lorazepam (Ativan) 1 mg PACU ORDER PRN IV .ANXIETY; Start 08/21/18 at 10:30; Stop 08/21/18 at 15:00 Midazolam HCl (Versed) 0.5 mg PACU ORDER PRN IV .ANXIETY; Start 08/21/18 at 10:30; Stop 08/21/18 at 15:00 SEAN YANEZ NP Aug 21, 2018 14:02
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
--- NOTE | 2018-08-21 16:05 | RADRPT ---
Vent Rate: 53 bpm RR Interval: 0 msec HI Interval: 208 msec QRS Duration: 80 msec QT Interval: 464 msec QTC Interval: 435 msec P-R-T [place]: 53 - 53 - 50 degrees Sinus bradycardia Otherwise normal ECG Electronically Signed By: Leeroy Phillip
[2018-08-21] MEDS: CEFEPIME 1GM/50 ML (PMX) 50 ML IVPB SCH (21:27)
[2018-08-21] MEDS: ATORVASTATIN 10 MG TAB PO SCH (21:29)
[2018-08-22] MEDS: HYDROmorphONE 2 MG TAB PO PRN ×6 (01:33→23:57)
[2018-08-22 02:18] VITALS: BP 109/58; PULSE 50; RESP 16
[2018-08-22] MEDS: VANCOMYCIN HCL 1.75 GM in SOD CHLORIDE 0.9% 500 ML IVPB SCH (05:49)
[2018-08-22 08:27] VITALS: BP 95/50; PULSE 46; RESP 18
[2018-08-22] MEDS: ARIPIPRAZOLE 10 MG TAB PO SCH (08:37)
[2018-08-22] MEDS: PENTOXIFYLLINE (SR) 400 MG TAB PO SCH ×3 (08:37→21:48)
[2018-08-22] MEDS: ITRACONAZOLE 100 MG CAP PO SCH ×2 (08:38→21:47)
[2018-08-22] MEDS: morphine 2 MG INJ IV PRN (08:39)
[2018-08-22] MEDS: HEPARIN 5,000 UNIT/1 ML VIAL SC SCH ×2 (08:40→21:51)
[2018-08-22] MEDS: CEFEPIME 1GM/50 ML (PMX) 50 ML IVPB SCH (08:41)
[2018-08-22] MEDS: SODIUM HYPOCHLORITE (1/40) 1 APPLIC BTL IRR SCH ×2 (08:41→21:00)
[2018-08-22] MEDS: LOSARTAN 25 MG TAB PO SCH ×2 (08:49→21:00)
--- NOTE | 2018-08-22 09:12 | PN ---
DATE: 08/22/2018 SUBJECTIVE: The patient is stable. No events overnight. Patient yesterday underwent lower extremit y excisional debridement with application of wound VAC and application of skin allograft. No other e vents noted. OBJECTIVE: VITAL SIGNS: Blood pressure is 95/50, respiration 18, pulse 46, temperature 97.9. HEENT: Head is normocephalic. NECK: Supple. HEART: Regular rate. LUNGS: Show diminished breath sounds at base. ABDOMEN: Soft, nontender to palpation without rebound or guarding. EXTREMITIES: Negative for clubbing, cyanosis. Positive edema, positive wounds noted. DERMATOLOGIC: No rashes. MUSCULOSKELETAL: No joint effusion. NEUROLOGIC: No change in exam. MEDICATIONS: Reviewed. LABORATORY DATA: Shows white count 5.1, hemoglobin 9.7, platelet count 219. The patient's BMP withi n normal limits. ASSESSMENT AND PLAN: 1. Nonoliguric acute kidney injury on top of chronic kidney disease with unknown baseline creatinine . Etiology of acute kidney injury is secondary to hemodynamics. The patient's renal function has im proved in the last 24 hours. At this point, continue current treatment plans, supportive care, renal ly dose all meds. 2. Chronic kidney disease, unclear. Underlying etiology is unclear. The patient is currently in ac oskar injury as stated above. Continue treatment plan. Continue disease factor modification. 3. Anemia. Monitor hemoglobin and hematocrit levels. 4. Mineral bone disorder, monitor calcium and phosphorus levels. 5. Bilateral lower extremity cellulitis. The patient is status post surgical debridement, status po st skin graft and wound VAC placement. Continue to monitor. Follow up with podiatry. 6. Chronic venous stasis. Continue current treatment plan. 7. History of deep venous thrombosis. 8. Hypertension. Continue current blood pressure regimen. 9. Dyslipidemia. Continue statin therapy. 10. Depression. Continue medical management. Dictated By: LUIS ABDI DO NR/NTS Conf#: [id number] DID#: [id number] CC: HIRO PHAM MD;*EndCC*
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
[2018-08-22 14:02] VITALS: BP 122/58; PULSE 45; RESP 18
--- NOTE | 2018-08-22 16:30 | CONS ---
Assessment/Plan Assessment/Plan Hospital Course (Demo Recall) No acute changes overnight patient looks comfortable no fevers. Microbiology: Wound culture growing oxacillin sensitive staph aureus Pseudomonas and E. coli also Corynebacterium species Indwelling: Left IJ triple-lumen catheter Antimicrobials: Vanco Zosyn PHYSICAL EXAMINATION: GENERAL: Well-developed, obese, middle-aged man who is in no distress. HEENT: Head is atraumatic, normocephalic. NECK: Supple. CHEST: Rise symmetrical. Breath sounds clear, diminished to bases. HEART: S1, S2. ABDOMEN: Soft. Bowel tones are present. EXTREMITIES: With bilateral lower extremities edema, below knee with dressings intact and some drainage present. Assessment: 1. Acute on chronic bilateral lower extremity cellulitis with chronic venous stasis status post I&D with wound VAC placement 2. Obesity 3. Acute kidney injury 4. Hypertension 5. History of DVT Plan: Stable, change antibiotics to ciprofloxacin and clindamycin, continue local wound care per podiatry, vascular recommendations Consultation Date/Type/Reason Admit Date/Time Aug 17, 2018 at 22:54 Initial Consult Date Type of Consult id Date/Time of Note DATE: 08/22/18 TIME: 16:29 Exam/Review of Systems Exam Vitals Vital Signs Date Temp Pulse Resp B/P (MAP) Pulse Ox O2 O2 Flow FiO2 Time Delivery Rate 08/22/18 98.0 45 18 122/58 98 Room Air 14:02 (79) 08/21/18 6.0 10:15 Intake and Output 08/21/18 08/21/18 08/22/18 1515:00 23:00 07:00 IntakeIntake Total 2550 ml 1150 ml OutputOutput Total 25 ml 800 ml 100 ml BalanceBalance 2525 ml 350 ml -100 ml Results Result Diagram: 08/22/18 0556 08/22/18 0556 Results 24hrs Laboratory Tests Test 08/22/18 05:56 08/22/18 09:21 White Blood Count 5.1 # Red Blood Count 3.95 L Hemoglobin 9.7 L Hematocrit 32.4 L Mean Corpuscular Volume 82.0 Mean Corpuscular Hemoglobin 24.6 L Mean Corpuscular Hemoglobin Concent 29.9 L Red Cell Distribution Width 15.3 H Platelet Count 219 # Mean Platelet Volume 9.9 Immature Granulocytes % 0.200 Neutrophils % 68.3 Lymphocytes % 22.4 Monocytes % 6.7 Eosinophils % 1.8 Basophils % 0.6 Nucleated Red Blood Cells % 0.0 Immature Granulocytes # 0.010 Neutrophils # 3.5 Lymphocytes # 1.1 Monocytes # 0.3 Eosinophils # 0.1 Basophils # 0.0 Nucleated Red Blood Cells # 0.0 Sodium Level 136 Potassium Level 3.7 Chloride Level 103 Carbon Dioxide Level 28 Anion Gap 5 Blood Urea Nitrogen 13 Creatinine 1.08 Est Glomerular Filtrat Rate mL/min > 60 Glucose Level 123 Calcium Level 8.4 Phosphorus Level 4.2 Magnesium Level 1.9 Urine Color YELLOW Urine Clarity CLEAR Urine pH 5.0 Urine Specific [place] 1.021 Urine Ketones NEGATIVE Urine Nitrite NEGATIVE Urine Bilirubin NEGATIVE Urine Urobilinogen NEGATIVE Urine Leukocyte Esterase NEGATIVE Urine Hemoglobin NEGATIVE Urine Random Creatinine 142.52 Urine Random Sodium 144 H Urine Glucose NEGATIVE Urine Total Protein 12.0 H Medications Medication Current Medications IV Flush (NS 3 ml) 3 ml PER PROTOCOL IV ; Start 08/17/18 at 23:00 Ondansetron HCl (Zofran Tab) 4 mg Q6H PRN PO NAUSEA/VOMITING; Start 08/17/18 at 23:00 Acetaminophen (Tylenol Tab) 650 mg Q6H PRN PO .PAIN 1-3 OR TEMP; Start 08/17/18 at 23:00 Acetaminophen/ Hydrocodone Bitart ([place] (5/325)) 1 tab Q6H PRN PO .MOD PAIN 4- 6; Start 08/17/18 at 23:00 Docusate Sodium (Colace) 100 mg Q12H PRN PO .CONSTIPATION; Start 08/17/18 at 23:00 Bisacodyl (Dulcolax) 5 mg DAILY PRN PO .CONSTIPATION; Start 08/17/18 at 23:00 Miscellaneous Information (Pending [facility] Order For Wound Care) This patient ricardo... PRN PRN XX WOUND CARE; Start 08/18/18 at 06:30 Itraconazole (Sporanox) 200 mg BID PO Last administered on 08/22/18at 08:38; Admin Dose 200 MG; Start 08/18/18 at 15:30; Stop 08/25/18 at 15:29 Pentoxifylline (Trental) 400 mg TID PO Last administered on 08/22/18at 13:47; Admin Dose 400 MG; Start 08/18/18 at 21:00 Hydromorphone HCl (Dilaudid) 3 mg Q4H PRN PO SEVERE PAIN LEVEL 7-10 Last admini stered on 08/22/18 15:24; Admin Dose 3 MG; Start 08/19/18 at 00:30 Sodium Hypochlorite ([place]akin'S (Dilute )) 1 applic BID IRR Last administered on 08/22/18 08:41; Admin Dose 1 APPLIC; Start 08/18/18 at 23:00 Aripiprazole (Abilify) 10 mg DAILY PO Last administered on 08/22/18 08:37; Admin Dose 10 MG; Start 08/20/18 at 09:00 Losartan Potassium (Cozaar) 25 mg BID PO Last administered on 08/21/18 21:30; Admin Dose 25 MG; Start 08/19/18 at 21:00 Atorvastatin Calcium (Lipitor) 10 mg DAILY@21 PO Last administered on 08/21/18 21:29; Admin Dose 10 MG; Start 08/19/18 at 21:00 Heparin Sodium (Porcine) (Heparin (5000 Units/1ml)) 5,000 unit BID SC Last administered on 08/22/18 08:40; Admin Dose 5,000 UNIT; Start 08/19/18 at 21:00 Vancomycin HCl (Vanco Iv Per Pharmacy) VANCOMYCIN PER PHARMACY PER PROTOCOL XX ; Start 08/19/18 at 15:30 Vancomycin HCl 1.75 gm/Sodium Chloride 500 ml @ 125 mls/hr Q12H IVPB Last administered on 08/22/18 05:49; Admin Dose 125 MLS/HR; Start 08/20/18 at 06:00 Cefepime HCl 50 ml @ 100 mls/hr Q12 IVPB Last administered on 08/22/18 08:41; Admin Dose 100 MLS/HR; Start 08/21/18 at 21:00 Aspirin (Aspirin) 81 mg DAILY PO ; Start 08/23/18 at 09:00 SEAN YANEZ NP Aug 22, 2018 16:30
[2018-08-22] MEDS: CIPROFLOXACIN 500 MG TAB PO SCH (17:56)
[2018-08-22 20:00] VITALS: BP 120/59; PULSE 50; RESP 18
[2018-08-22] MEDS: ATORVASTATIN 10 MG TAB PO SCH (21:46)
[2018-08-23] MEDS: CLINDAMYCIN 600 MG/D5W (PMX) 50 ML IVPB SCH ×4 (00:06→22:51)
[2018-08-23 02:00] VITALS: BP 127/67; PULSE 52; RESP 17
[2018-08-23] MEDS: HYDROmorphONE 2 MG TAB PO PRN ×5 (05:27→22:52)
[2018-08-23] MEDS: CIPROFLOXACIN 500 MG TAB PO SCH ×2 (05:28→18:47)
--- NOTE | 2018-08-23 07:47 | PAC ---
Date/Time of Note Date/Time of Note DATE: 08/23/18 TIME: 07:47 Post-Anesthesia Notes Post-Anesthesia Note Last documented vital signs Vital Signs Date Temp Pulse Resp B/P (MAP) Pulse Ox O2 O2 Flow FiO2 Time Delivery Rate 08/23/18 98.2 52 17 127/67 96 02:00 (87) 08/22/18 Room Air 14:02 08/21/18 6.0 10:15 Activity: WNL Respiratory function: WNL Cardiovascular function: WNL Mental status: Baseline Pain reasonably controlled: Yes Hydration appropriate: Yes Nausea/Vomiting absent: Yes JOHN CABRERA MD Aug 23, 2018 07:47
[2018-08-23] MEDS: LOSARTAN 25 MG TAB PO SCH ×2 (09:00→20:52)
[2018-08-23] MEDS: SODIUM HYPOCHLORITE (1/40) 1 APPLIC BTL IRR SCH ×2 (09:00→21:00)
[2018-08-23 09:13] VITALS: BP 119/61; PULSE 45; RESP 18
[2018-08-23] MEDS: PENTOXIFYLLINE (SR) 400 MG TAB PO SCH ×3 (09:16→20:52)
[2018-08-23] MEDS: ARIPIPRAZOLE 10 MG TAB PO SCH (09:17)
[2018-08-23] MEDS: ITRACONAZOLE 100 MG CAP PO SCH ×2 (09:17→20:50)
[2018-08-23] MEDS: ASPIRIN 81 MG TAB PO SCH (09:18)
[2018-08-23] MEDS: HEPARIN 5,000 UNIT/1 ML VIAL SC SCH ×2 (09:19→20:55)
--- NOTE | 2018-08-23 09:42 | PN ---
DATE: 08/23/2018 SUBJECTIVE: The patient is stable, no events overnight. OBJECTIVE: VITAL SIGNS: Blood pressure is 127/67, respirations 17, pulse 82, temperature 98.2. HEENT: Head is normocephalic. NECK: Supple. HEART: Regular rate. LUNGS: Show diminished breath sounds at the base. ABDOMEN: Soft, nontender to palpation without rebound or guarding. EXTREMITIES: Negative for clubbing, cyanosis. Positive edema, positive wounds with dressing clean, dry, and intact. DERMATOLOGIC: No rashes. MUSCULOSKELETAL: No joint effusion. NEUROLOGIC: No change in exam. MEDICATIONS: Reviewed. LABORATORY DATA: From 08/23/2018 was reviewed. ASSESSMENT AND PLAN: 1. Nonoliguric acute kidney injury with unknown baseline creatinine. Etiology of acute kidney injur y is secondary to hemodynamics. Renal function is improved. Continue current treatment plan, suppor tive care and renally dose all medicines. 2. Chronic kidney disease, etiology is unclear. Renal function is improved. Continue disease facto r modification. 3. Anemia. Monitor hemoglobin and hematocrit levels. 4. Mineral bone disorder. Monitor calcium and phosphorus levels. 5. Lower extremity cellulitis. The patient is status post surgical debridement, status post skin gr aft wound VAC. Continue to monitor. 6. Chronic venous stasis. Continue current treatment plan. 7. History of deep venous thrombosis. 8. Hypertension. Continue current blood pressure regimen. 9. Dyslipidemia. Continue statin therapy. 10. Depression. Continue medical management. Dictated By: LUIS ABDI DO NR/NTS Conf#: [id number] DID#: [id number] CC: IRLANDA PÉREZ MD; HIRO PHAM MD;*EndCC*
[2018-08-23] MEDS: HYDROCODONE/APAP (5/325) TAB PO PRN ×2 (12:42→20:51)
--- NOTE | 2018-08-23 12:42 | CONS ---
Assessment/Plan Assessment/Plan Assessment/Plan (Daily) Bilateral lower extremity cellulitis. Venous stasis with ulceration - s/p excisional debridement and graft application with wound VAC Lymphedema. Failed inferior vena cava filter, right lower extremity. Pain. Degenerative joint disease, right knee. Venous insufficiency. Onychomycosis. Tinea pedis. Plan Wound VAC on hold for now to alleviate macerated tissues. Betadine non-adherent and betadine paint to the macerated tissue with 3 layered compression dressing. Wound VAC paperwork signed and completed. Abx as per recommendations. Recommend offloading of the heels and keep elevated to assist with swelling. Patient to follow up in [facility] wound clinic Consultation Date/Type/Reason Admit Date/Time Aug 17, 2018 at 22:54 Initial Consult Date Date/Time of Note DATE: 08/23/18 TIME: 12:42 24 HR Interval Summary Free Text/Dictation No acute events overnight. Exam/Review of Systems Exam Vitals Vital Signs Date Temp Pulse Resp B/P (MAP) Pulse Ox O2 O2 Flow FiO2 Time Delivery Rate 08/23/18 97.8 45 18 119/61 94 Room Air 09:13 (80) 08/21/18 6.0 10:15 Intake and Output 08/22/18 08/22/18 08/23/18 1515:00 23:00 07:00 IntakeIntake Total 1210 ml 340 ml OutputOutput Total 175 ml 50 ml BalanceBalance 1035 ml 340 ml -50 ml Exam Left lower leg ulcer 15 x 10.5 x 0.3cm, wound base was fibrogranular with graft in place and secured with skin eva, surrounding macerated tissue and skin slough was appreciated. There was no purulence, no probing to bone, and no proximal streaking appreciated. There were hemosiderin deposits appreciated. Right lower extremity ulceration site which measured 16 x 14.5 x 0.3cm, wound base was fibrogranular and surrounding macerated tissue and skin slough was appreciated. Portions of graft not well adhered and the rest of graft secured with skin eva. There was no purulence, no probing to bone, and no proximal streaking appreciated. There were hemosiderin deposits appreciated. Pain on palpation to right lower extremity wound site 2+ pitting edema Results Result Diagram: 08/23/18 0612 08/23/18 0612 Results 24hrs Laboratory Tests Test 08/23/18 06:12 White Blood Count 4.9 Red Blood Count 4.19 L Hemoglobin 10.3 L Hematocrit 34.1 L Mean Corpuscular Volume 81.4 L Mean Corpuscular Hemoglobin 24.6 L Mean Corpuscular Hemoglobin Concent 30.2 L Red Cell Distribution Width 15.6 H Platelet Count 223 Mean Platelet Volume 9.6 Immature Granulocytes % 0.200 Neutrophils % 69.4 Lymphocytes % 19.6 Monocytes % 7.1 Eosinophils % 2.9 Basophils % 0.8 Nucleated Red Blood Cells % 0.0 Immature Granulocytes # 0.010 Neutrophils # 3.4 Lymphocytes # 1.0 Monocytes # 0.4 Eosinophils # 0.1 Basophils # 0.0 Nucleated Red Blood Cells # 0.0 Sodium Level 138 Potassium Level 3.8 Chloride Level 103 Carbon Dioxide Level 29 Anion Gap 6 Blood Urea Nitrogen 10 Creatinine 0.99 Est Glomerular Filtrat Rate mL/min > 60 Glucose Level 110 Calcium Level 8.4 Phosphorus Level 4.0 Magnesium Level 1.8 Medications Medication Current Medications IV Flush (NS 3 ml) 3 ml PER PROTOCOL IV ; Start 08/17/18 at 23:00 Ondansetron HCl (Zofran Tab) 4 mg Q6H PRN PO NAUSEA/VOMITING; Start 08/17/18 at 23:00 Acetaminophen (Tylenol Tab) 650 mg Q6H PRN PO .PAIN 1-3 OR TEMP; Start 08/17/18 at 23:00 Acetaminophen/ Hydrocodone Bitart ([place] (5/325)) 1 tab Q6H PRN PO .MOD PAIN 4- 6; Start 08/17/18 at 23:00 Docusate Sodium (Colace) 100 mg Q12H PRN PO .CONSTIPATION; Start 08/17/18 at 23:00 Bisacodyl (Dulcolax) 5 mg DAILY PRN PO .CONSTIPATION; Start 08/17/18 at 23:00 [facility] This patient ricardo... PRN PRN XX WOUND CARE; Start 08/18/18 at 06:30 Itraconazole (Sporanox) 200 mg BID PO Last administered on 08/23/18at 09:17; Ad min Dose 200 MG; Start 08/18/18 at 15:30; Stop 08/25/18 at 15:29 Pentoxifylline (Trental) 400 mg TID PO Last administered on 08/23/18 09:16; Admin Dose 400 MG; Start 08/18/18 at 21:00 Hydromorphone HCl (Dilaudid) 3 mg Q4H PRN PO SEVERE PAIN LEVEL 7-10 Last administered on 08/23/18 09:21; Admin Dose 3 MG; Start 08/19/18 at 00:30 Sodium Hypochlorite (Dakin'S (Dilute )) 1 applic BID IRR Last administered on 08/22/18 08:41; Admin Dose 1 APPLIC; Start 08/18/18 at 23:00 Aripiprazole (Abilify) 10 mg DAILY PO Last administered on 08/23/18 09:17; Admin Dose 10 MG; Start 08/20/18 at 09:00 Losartan Potassium (Cozaar) 25 mg BID PO Last administered on 08/21/18 21:30; Admin Dose 25 MG; Start 08/19/18 at 21:00 Atorvastatin Calcium (Lipitor) 10 mg DAILY@21 PO Last administered on 08/22/18 21:46; Admin Dose 10 MG; Start 08/19/18 at 21:00 Heparin Sodium (Porcine) (Heparin (5000 Units/1ml)) 5,000 unit BID SC Last administered on 08/23/18 09:19; Admin Dose 5,000 UNIT; Start 08/19/18 at 21:00 Aspirin (Aspirin) 81 mg DAILY PO Last administered on 08/23/18 09:18; Admin Dose 81 MG; Start 08/23/18 at 09:00 Clindamycin HCl/ Dextrose 50 ml @ 50 mls/hr Q8 IVPB Last administered on 06:54; Admin Dose 50 MLS/HR; Start 08/22/18 at 22:00 Ciprofloxacin (Cipro) 500 mg BID@06,18 PO Last administered on 08/23/18 05:28; Admin Dose 500 MG; Start 08/22/18 at 18:00 ROSEANNE BAIRD DPM Aug 23, 2018 12:42
[2018-08-23 14:43] VITALS: BP 109/58; PULSE 58; RESP 18
--- NOTE | 2018-08-23 15:05 | CONS ---
Assessment/Plan Assessment/Plan Hospital Course (Demo Recall) No acute changes Microbiology: Wound culture growing oxacillin sensitive staph aureus Pseudomonas and E. coli also Corynebacterium species Indwelling: Left IJ triple-lumen catheter Antimicrobials: Cipro, Clinda PHYSICAL EXAMINATION: GENERAL: Well-developed, obese, middle-aged man who is in no distress. HEENT: Head is atraumatic, normocephalic. NECK: Supple. CHEST: Rise symmetrical. Breath sounds clear, diminished to bases. HEART: S1, S2. ABDOMEN: Soft. Bowel tones are present. EXTREMITIES: With bilateral lower extremities edema, below knee with dressings intact and some drainage present. Assessment: 1. Acute on chronic bilateral lower extremity cellulitis with chronic venous stasis status post I&D with wound VAC placement 2. Obesity 3. Acute kidney injury 4. Hypertension 5. History of DVT Plan: Stable, podiatry rec-s noted, continue on current abx for 2 weeks Consultation Date/Type/Reason Admit Date/Time Aug 17, 2018 at 22:54 Initial Consult Date Type of Consult id Date/Time of Note DATE: 08/23/18 TIME: 15:03 Exam/Review of Systems Exam Vitals Vital Signs Date Temp Pulse Resp B/P (MAP) Pulse Ox O2 O2 Flow FiO2 Time Delivery Rate 08/23/18 98.2 58 18 109/58 96 Room Air 14:43 (75) 08/21/18 6.0 10:15 Intake and Output 08/22/18 08/22/18 08/23/18 1515:00 23:00 07:00 IntakeIntake Total 1210 ml 340 ml OutputOutput Total 175 ml 50 ml BalanceBalance 1035 ml 340 ml -50 ml Results Result Diagram: 08/23/18 0612 08/23/1812 Results 24hrs Laboratory Tests Test 08/23/18 06:12 White Blood Count 4.9 Red Blood Count 4.19 L Hemoglobin 10.3 L Hematocrit 34.1 L Mean Corpuscular Volume 81.4 L Mean Corpuscular Hemoglobin 24.6 L Mean Corpuscular Hemoglobin Concent 30.2 L Red Cell Distribution Width 15.6 H Platelet Count 223 Mean Platelet Volume 9.6 Immature Granulocytes % 0.200 Neutrophils % 69.4 Lymphocytes % 19.6 Monocytes % 7.1 Eosinophils % 2.9 Basophils % 0.8 Nucleated Red Blood Cells % 0.0 Immature Granulocytes # 0.010 Neutrophils # 3.4 Lymphocytes # 1.0 Monocytes # 0.4 Eosinophils # 0.1 Basophils # 0.0 Nucleated Red Blood Cells # 0.0 Sodium Level 138 Potassium Level 3.8 Chloride Level 103 Carbon Dioxide Level 29 Anion Gap 6 Blood Urea Nitrogen 10 Creatinine 0.99 Est Glomerular Filtrat Rate mL/min > 60 Glucose Level 110 Calcium Level 8.4 Phosphorus Level 4.0 Magnesium Level 1.8 Medications Medication Current Medications IV Flush (NS 3 ml) 3 ml PER PROTOCOL IV ; Start 08/17/18 at 23:00 Ondansetron HCl (Zofran Tab) 4 mg Q6H PRN PO NAUSEA/VOMITING; Start 08/17/18 at 23:00 Acetaminophen (Tylenol Tab) 650 mg Q6H PRN PO .PAIN 1-3 OR TEMP; Start 08/17/18 at 23:00 Acetaminophen/ Hydrocodone Bitart ([place] (5/325)) 1 tab Q6H PRN PO .MOD PAIN 4- 6 Last administered on 08/23/18at 12:42; Admin Dose 1 TAB; Start 08/17/18 at 23:00 Docusate Sodium (Colace) 100 mg Q12H PRN PO .CONSTIPATION; Start 08/17/18 at 23:00 Bisacodyl (Dulcolax) 5 mg DAILY PRN PO .CONSTIPATION; Start 08/17/18 at 23:00 Miscellaneous Information (Pending [facility] Order For Wound Care) This patient ricardo... PRN PRN XX WOUND CARE; Start 08/18/18 at 06:30 Itraconazole (Sporanox) 200 mg BID PO Last administered on 08/23/18at 09:17; Admin Dose 200 MG; Start 08/18/18 at 15:30; Stop 08/25/18 at 15:29 Pentoxifylline (Trental) 400 mg TID PO Last administered on 08/23/18at 12:42; Admin Dose 400 MG; Start 08/18/18 at 21:00 Hydromorphone HCl (Dilaudid) 3 mg Q4H PRN PO SEVERE PAIN LEVEL 7-10 Last administered on 08/23/18at 13:56; Admin Dose 3 MG; Start 08/19/18 at 00:30 Sodium Hypochlorite (Dakin'S (Dilute 1/40)) 1 applic BID IRR Last administered on 08/22/18 08:41; Admin Dose 1 APPLIC; Start 08/18/18 at 23:00 Aripiprazole (Abilify) 10 mg DAILY PO Last administered on 08/23/18 09:17; Admin Dose 10 MG; Start 08/20/18 at 09:00 Losartan Potassium (Cozaar) 25 mg BID PO Last administered on 08/21/18 21:30; Admin Dose 25 MG; Start 08/19/18 at 21:00 Atorvastatin Calcium (Lipitor) 10 mg DAILY@21 PO Last administered on 08/22/18 21:46; Admin Dose 10 MG; Start 08/19/18 at 21:00 Heparin Sodium (Porcine) (Heparin (5000 Units/1ml)) 5,000 unit BID SC Last administered on 08/23/18 09:19; Admin Dose 5,000 UNIT; Start 08/19/18 at 21:00 Aspirin (Aspirin) 81 mg DAILY PO Last administered on 08/23/18 09:18; Admin Dose 81 MG; Start 08/23/18 at 09:00 Clindamycin HCl/ Dextrose 50 ml @ 50 mls/hr Q8 IVPB Last administered on 08/23/18 06:54; Admin Dose 50 MLS/HR; Start 08/22/18 at 22:00 Ciprofloxacin (Cipro) 500 mg BID@06,18 PO Last administered on 08/23/18 05:28; Admin Dose 500 MG; Start 08/22/18 at 18:00 SEAN YANEZ NP Aug 23, 2018 15:05
[2018-08-23 20:07] VITALS: BP 131/64; PULSE 53; RESP 18
[2018-08-23] MEDS: ATORVASTATIN 10 MG TAB PO SCH (20:52)
[2018-08-24 02:46] VITALS: BP 118/63; PULSE 51; RESP 18
[2018-08-24] MEDS: HYDROmorphONE 2 MG TAB PO PRN ×5 (03:15→20:13)
[2018-08-24] MEDS: CIPROFLOXACIN 500 MG TAB PO SCH ×2 (05:37→17:48)
[2018-08-24] MEDS: CLINDAMYCIN 600 MG/D5W (PMX) 50 ML IVPB SCH ×3 (05:37→22:28)
[2018-08-24] MEDS: HYDROCODONE/APAP (5/325) TAB PO PRN ×2 (05:37→17:48)
[2018-08-24 08:00] VITALS: BP 140/72; PULSE 55; RESP 18
[2018-08-24] MEDS: SODIUM HYPOCHLORITE (1/40) 1 APPLIC BTL IRR SCH ×2 (08:22→21:00)
[2018-08-24] MEDS: ASPIRIN 81 MG TAB PO SCH (08:31)
[2018-08-24] MEDS: ARIPIPRAZOLE 10 MG TAB PO SCH (08:31)
[2018-08-24] MEDS: HEPARIN 5,000 UNIT/1 ML VIAL SC SCH ×2 (08:32→22:23)
[2018-08-24] MEDS: ITRACONAZOLE 100 MG CAP PO SCH (08:32)
[2018-08-24] MEDS: LOSARTAN 25 MG TAB PO SCH ×3 (08:32→20:14)
[2018-08-24] MEDS: PENTOXIFYLLINE (SR) 400 MG TAB PO SCH ×3 (08:32→20:14)
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
--- NOTE | 2018-08-24 11:08 | PDOCDIS ---
Discharge Instructions CONDITION [id number] Patient Condition: [id number] Stable HOME CARE INSTRUCTIONS: [id number] Your diet recommendation is: [id number] Carbohydrate controlled/low-cholesterol diet FOLLOW UP/APPOINTMENTS Follow-up Plan Follow-up with next week amputation prevention clinic. Weightbearing as instructed by your spin instructor. DANIELLE JIMENEZ NP Aug 24, 2018 11:08
[2018-08-24] MEDS ORDERED: CLIN300C10 PO ×2 (11:12→21:30)
[2018-08-24] MEDS ORDERED: ITRA100C PO (11:12)
[2018-08-24] MEDS ORDERED: PENT400T9 PO (11:12)
[2018-08-24] MEDS ORDERED: CIPR500T4 PO (11:12)
[2018-08-24] MEDS ORDERED: ASPI-831 PO (11:12)
[2018-08-24 14:17] VITALS: BP 122/63; PULSE 55; RESP 19
--- NOTE | 2018-08-24 15:35 | CONS ---
Assessment/Plan Assessment/Plan Hospital Course (Demo Recall) ID PROGRESS NOTE CURRENT ABX: DAY # Vanco IV 24H INTERVAL SUMMARY * 58 yo M looks older than stated age, lethargic, obese, no fevers, VSS, NAD * CHART REVIEWED: DC PLANNING IN PROCESS == October DC on Clindamycin + Cipro PO ABX MICRO/OTHER * 08/21/18 WOUND CX: WOUND CULTURE Final Organism 1 PSEUDOMONAS AERUGINOSA QUANTITY 1+ Organism 2 CORYNEBACTERIUM SPECIES QUANTITY 1+ Organism 3 STAPHYLOCOCCUS AUREUS QUANTITY 1+ P.AERUG M.I.C. RX --------- --- AMIKACIN <=2 S AZTREONAM I CEFEPIME I CEFTAZIDIME 16 S CIPROFLOXACIN <=0.25 S GENTAMICIN <=1 S LEVOFLOXACIN 1 S TOBRAMYCIN <=1 S PIPERACILLIN/TAZOBACTAM R * 08/21/18 WOUND CX: WOUND CULTURE Final Organism 1 PSEUDOMONAS AERUGINOSA QUANTITY 2+ Organism 2 CORYNEBACTERIUM SPECIES QUANTITY 2+ Organism 3 ESCHERICHIA COLI QUANTITY SCANT GROWTH Organism 4 STAPHYLOCOCCUS AUREUS QUANTITY SCANT GROWTH P.AERUG P.AERUG E COLI M.I.C. RX M.I.C. RX M.I.C. RX --------- --- --------- --- --------- --- AMIKACIN <=2 S AMPICILLIN >=32 R AZTREONAM I CEFAZOLIN R CEFEPIME <=1 S CEFOTAXIME S CEFTAZIDIME 2 S CIPROFLOXACIN <=0.25 S <=0.25 S CLINDAMYCIN DOXYCYCLINE ERYTHROMYCIN GENTAMICIN <=1 S <=1 S LEVOFLOXACIN 1 S <=0.12 S MEROPENEM 0.125 S OXACILLIN PENICILLIN-G RIFAMPIN VANCOMYCIN TOBRAMYCIN <=1 S <=1 S TRIMETHOPRIM/SULFAMETHOXAZOLE >=320 R PIPERACILLIN/TAZOBACTAM 8 S S AUREUS M.I.C. RX --------- --- AMIKACIN AMPICILLIN AZTREONAM CEFAZOLIN S CEFEPIME CEFOTAXIME CEFTAZIDIME CIPROFLOXACIN >=8 R CLINDAMYCIN <=0.25 S DOXYCYCLINE S ERYTHROMYCIN <=0.25 S GENTAMICIN LEVOFLOXACIN >=8 R MEROPENEM OXACILLIN S PENICILLIN-G >=0.5 R RIFAMPIN <=0.5 S VANCOMYCIN 1 S TOBRAMYCIN TRIMETHOPRIM/SULFAMETHOXAZOLE >=320 R PIPERACILLIN/TAZOBACTAM * PHYSICAL EXAMINATION: GENERAL: VSS HEENT: AT, NC, anicteric NECK: Supple, CHEST: Equal chest rise bilaterally, without dyspnea on observation HEART: Pulse RRR ABDOMEN: Soft / NT EXTREMITIES: Warm, dry SKIN: No rash, no diaphoresis ID ASSESSMENT 58 yo M admit with: 1. Acute on chronic bilateral lower extremity cellulitis with chronic venous stasis status post I&D with wound VAC placement 2. Obesity 3. Acute kidney injury 4. Hypertension 5. History of DVT ABX ALLERGIES: None to ABX INVASIVES: PIV CURRENT ABX: DAY # CIPRO + CLINDAMYCIN ID RECOMMENDATIONS/PLAN: 1. CHART REVIEWED: DC PLANNING IN PROCESS == October DC on: * Clindamycin 300mg po WID x 14 days * Cipro 500 mg PO Q12H x 14 days . Consultation Date/Type/Reason Admit Date/Time Aug 17, 2018 at 22:54 Initial Consult Date Date/Time of Note DATE: 08/24/18 TIME: 15:35 Exam/Review of Systems Exam Vitals Vital Signs Date Temp Pulse Resp B/P (MAP) Pulse Ox O2 O2 Flow FiO2 Time Delivery Rate 08/24/18 97.9 55 19 122/63 94 Room Air 14:17 (82) 08/21/18 6.0 10:15 Intake and Output 08/23/18 08/23/18 08/24/18 1515:00 23:00 07:00 IntakeIntake Total 340 ml 650 ml 100 ml BalanceBalance 340 ml 650 ml 100 ml Results Result Diagram: 08/23/1861108/23/18611 Medications Medication Current Medications IV Flush (NS 3 ml) 3 ml PER PROTOCOL IV ; Start 08/17/18 at 23:00 Ondansetron HCl (Zofran Tab) 4 mg Q6H PRN PO NAUSEA/VOMITING; Start 08/17/18 at 23:00 Acetaminophen (Tylenol Tab) 650 mg Q6H PRN PO .PAIN 1-3 OR TEMP; Start 08/17/18 at 23:00 Acetaminophen/ Hydrocodone Bitart ([place] (5/325)) 1 tab Q6H PRN PO .MOD PAIN 4- 6 Last administered on 08/24/18 05:37; Admin Dose 1 TAB; Start 08/17/18 at 23:00 Docusate Sodium (Colace) 100 mg Q12H PRN PO .CONSTIPATION; Start 08/17/18 at 23:00 Bisacodyl (Dulcolax) 5 mg DAILY PRN PO .CONSTIPATION; Start 08/17/18 at 23:00 [facility] This patient ricardo... PRN PRN XX WOUND CARE; Start 08/18/18 at 06:30 Itraconazole (Sporanox) 200 mg BID PO Last administered on 08/24/18 08:32; Admin Dose 200 MG; Start 08/18/18 at 15:30; Stop 08/25/18 at 15:29 Pentoxifylline (Trental) 400 mg TID PO Last administered on 08/24/18 13:45; Admin Dose 400 MG; Start 08/18/18 at 21:00 Sodium Hypochlorite (Dakin'S (Dilute )) 1 applic BID IRR Last administered on 08/22/18 08:41; Admin Dose 1 APPLIC; Start 08/18/18 at 23:00 Aripiprazole (Abilify) 10 mg DAILY PO Last administered on 08/24/18 08:31; Admin Dose 10 MG; Start 08/20/18 at 09:00 Losartan Potassium (Cozaar) 25 mg BID PO Last administered on 08/21/18 21:30; Admin Dose 25 MG; Start 08/19/18 at 21:00 Atorvastatin Calcium (Lipitor) 10 mg DAILY@21 PO Last administered on 08/23/18 20:52; Admin Dose 10 MG; Start 08/19/18 at 21:00 Heparin Sodium (Porcine) (Heparin (5000 Units/1ml)) 5,000 unit BID SC Last administered on 08/24/18 08:32; Admin Dose 5,000 UNIT; Start 08/19/18 at 21:00 Aspirin (Aspirin) 81 mg DAILY PO Last administered on 08/24/18 08:31; Admin Dose 81 MG; Start 08/23/18 at 09:00 Clindamycin HCl/ Dextrose 50 ml @ 50 mls/hr Q8 IVPB Last administered on 08/24/18at 14:58; Admin Dose 50 MLS/HR; Start 08/22/18 at 22:00 Ciprofloxacin (Cipro) 500 mg BID@06,18 PO Last administered on 08/24/18at 05:37; Admin Dose 500 MG; Start 08/22/18 at 18:00 Hydromorphone HCl (Dilaudid) 4 mg Q4H PRN PO SEVERE PAIN LEVEL 7-10 Last administered on 08/24/18at 11:46; Admin Dose 4 MG; Start 08/24/18 at 12:30 EMMANUEL TESFAYE NP Aug 24, 2018 15:35
[2018-08-24 20:00] VITALS: BP 142/70; PULSE 55; RESP 18
[2018-08-24] MEDS: ATORVASTATIN 10 MG TAB PO SCH (20:14)
[2018-08-25] MEDS: ITRACONAZOLE 100 MG CAP PO SCH ×2 (00:10→08:17)
[2018-08-25] MEDS: HYDROmorphONE 2 MG TAB PO PRN ×3 (00:13→08:49)
[2018-08-25 02:00] VITALS: BP 111/57; PULSE 56; RESP 16
[2018-08-25] MEDS: CIPROFLOXACIN 500 MG TAB PO SCH (05:21)
[2018-08-25] MEDS: CLINDAMYCIN 600 MG/D5W (PMX) 50 ML IVPB SCH (05:21)
[2018-08-25] MEDS: LOSARTAN 25 MG TAB PO SCH (08:17)
[2018-08-25] MEDS: ARIPIPRAZOLE 10 MG TAB PO SCH (08:17)
[2018-08-25] MEDS: SODIUM HYPOCHLORITE (1/40) 1 APPLIC BTL IRR SCH (08:17)
[2018-08-25] MEDS: ASPIRIN 81 MG TAB PO SCH (08:17)
[2018-08-25] MEDS: PENTOXIFYLLINE (SR) 400 MG TAB PO SCH ×2 (08:17→12:59)
[2018-08-25] MEDS: HEPARIN 5,000 UNIT/1 ML VIAL SC SCH (08:19)
[2018-08-25 08:42] VITALS: BP 128/67; PULSE 57; RESP 18
[2018-08-25] MEDS ORDERED: FER325 PO (10:56)
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
== END 2018-08-25 13:15 | disposition home health service (06) | DRG 574 ==
LOC: E/R 19:27 → PP2 22:54
PROVIDERS: ADMIT Family Medicine; ATTEND Family Medicine
PROC: 05HM33Z Insertion of Infusion Device into Right Internal Jugular Vein, Percutaneous Approach (ICD-10-PCS; 2018-08-19)
PROC: 0JBP0ZZ Excision of Left Lower Leg Subcutaneous Tissue and Fascia, Open Approach (ICD-10-PCS; 2018-08-21)
PROC: 0JBN0ZZ Excision of Right Lower Leg Subcutaneous Tissue and Fascia, Open Approach (ICD-10-PCS; 2018-08-21)
PROC: 0HRKXK3 Replacement of Right Lower Leg Skin with Nonautologous Tissue Substitute, Full Thickness, External Approach (ICD-10-PCS; 2018-08-21)
PROC: 0HRLXK3 Replacement of Left Lower Leg Skin with Nonautologous Tissue Substitute, Full Thickness, External Approach (ICD-10-PCS; principal; 2018-08-21 07:30)
DX: L97.811 Non-pressure chronic ulcer of other part of right lower leg limited to breakdown of skin (principal); N17.9 Acute kidney failure, unspecified; L03.116 Cellulitis of left lower limb; L03.115 Cellulitis of right lower limb; L97.821 Non-pressure chronic ulcer of other part of left lower leg limited to breakdown of skin; I87.2 Venous insufficiency (chronic) (peripheral); E66.9 Obesity, unspecified; B35.1 Tinea unguium; B35.3 Tinea pedis; E78.5 Hyperlipidemia, unspecified; F32.9 Major depressive disorder, single episode, unspecified; I10 Essential (primary) hypertension; D50.9 Iron deficiency anemia, unspecified; G89.4 Chronic pain syndrome; R73.03 Prediabetes; Y83.2 Surgical operation with anastomosis, bypass or graft as the cause of abnormal reaction of the patient, or of later complication, without mention of misadventure at the time of the procedure; I87.8 Other specified disorders of veins; I89.0 Lymphedema, not elsewhere classified; I87.001 Postthrombotic syndrome without complications of right lower extremity; I12.9 Hypertensive chronic kidney disease with stage 1 through stage 4 chronic kidney disease, or unspecified chronic kidney disease; N18.9 Chronic kidney disease, unspecified; Z86.718 Personal history of other venous thrombosis and embolism; Z68.38 Body mass index [BMI] 38.0-38.9, adult
CPT/HCPCS: 71045; 73590; 73719; 74018; 76775; 76937; 80048; 80053; 80202; 81003; 82043; 83036; 83540; 83690; 83735; 84100; 84155; 84300; 84443; 85025; 85610; 85651; 85730; 86140; 86803; 87040; 87070; 87075; 87081; 87102; 87340; 88304; 93005; 93922; 93970; C1751; J0400; J0692; J0696; J1170; J1644; J2250; J2270; J2405; J2543; J2765; J2795; J3010; J3370; J7040

== ENCOUNTER 2018-08-27 16:24 | Emergency (ER) | payer SELFPAY ==
[~2018-08-27] VITALS: Ht 177.8 cm; Wt 127.1 kg
[~2018-08-27 16:24] MED LIST: ALPR2TAB PO; ARIP10TA12 PO; ASPI-831 PO; CIPR500T4 PO; CLIN300C10 PO; FER325 PO; ITRA100C PO; LOSA25TA2 PO; MEVA40 PO; PENT400T9 PO
[2018-08-27 17:15] VITALS: Ht 177.8 cm; Wt 127.1 kg
== END 2018-08-27 17:30 | disposition left against medical advice (07) ==
LOC: FTE 16:24
DX: Z53.21 Procedure and treatment not carried out due to patient leaving prior to being seen by health care provider (principal)

== ENCOUNTER 2018-10-17 16:55 | Emergency (ER) | payer SELFPAY | END 2018-10-17 22:38 | disposition left against medical advice (07) | LOC: E/R 16:55 | DX: Z53.21 Procedure and treatment not carried out due to patient leaving prior to being seen by health care provider (principal) ==

== ENCOUNTER 2018-10-19 16:29 | Inpatient (IN) | payer OTHER ==
[~2018-10-19] VITALS: Ht 185.4 cm; Wt 137.0 kg
[2018-10-19] MEDS ORDERED: SODIUM CHLORIDE 0.9% 1L BAG IV* STA (20:13)
[2018-10-19] MEDS ORDERED: PIPER-TAZO 3.375 GM IV (PMX) 100 ML IVPB STA (20:13)
[2018-10-19] MEDS ORDERED: VANCOMYCIN 1 GM (PMX) 250 ML IVPB STA (20:13)
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
[2018-10-19] MEDS ORDERED: DIPHENHYDRAMINE 50 MG INJ ONE (21:16)
[2018-10-19] MEDS ORDERED: METHYLPREDNISOLONE 125 MG INJ ONE (21:18)
[2018-10-19] MEDS ORDERED: IPRATROPIUM (NEB) 0.5 MG/2.5 ML AMP INH STA (21:18)
[2018-10-19] MEDS ORDERED: EPINEPHrine 1 MG INJ ONE (21:18)
[2018-10-19] MEDS ORDERED: EPINEPHrine 1 MG INJ IM STA (21:18)
[2018-10-19] MEDS ORDERED: ALBUTEROL 0.083% (NEB) 2.5 MG/3 ML AMP INH STA (21:18)
[2018-10-19] MEDS ORDERED: METHYLPREDNISOLONE 125 MG INJ IV STA (21:18)
[2018-10-19] MEDS ORDERED: FAMOTIDINE 20 MG INJ IV STA (21:18)
[2018-10-19] MEDS ORDERED: DIPHENHYDRAMINE 50 MG INJ IV STA (21:18)
[2018-10-19] MEDS ORDERED: FENTAnyl 50 MCG/ML VIAL IV ONE (21:30)
[2018-10-19 22:40] VITALS: PULSE 76
[2018-10-19 22:45] VITALS: Ht 185.4 cm; Wt 137.0 kg
--- NOTE | 2018-10-19 23:51 | HP ---
Date/Time of Note Date/Time of Note DATE: 10/19/18 TIME: 23:51 Assessment/Plan VTE Prophylaxis Pharmacological prophylaxis: heparin Lines/Catheters IV Catheter Type (from Nrsg): Mid Line Assessment/Plan Assessment/Plan 1. Purulent left leg infection: Patient with history of bilateral lower extremity wound status post excisional debridement with a wound VAC 2 months ago -He was sent by his grinder operator, Dr. Del Valle -IV antibiotic -Podiatry, ID, wound care consult -Wound culture 2. Hypertension: Adjust BP meds as needed 3. History of DVT status post IVC filter 4. Iron deficiency anemia: Continue ferrous sulfate 5. Depression/anxiety: Continue home med Result Diagram: 10/19/18210910/19/182109 Results 24hrs Laboratory Tests Test 10/19/18 21:10 10/19/18 21:11 White Blood Count 7.3 # Red Blood Count 4.52 L Hemoglobin 11.2 L Hematocrit 36.8 L Mean Corpuscular Volume 81.4 L Mean Corpuscular Hemoglobin 24.8 L Mean Corpuscular Hemoglobin Concent 30.4 L Red Cell Distribution Width 16.4 H Platelet Count 251 Mean Platelet Volume 9.3 Immature Granulocytes % 0.800 H Neutrophils % 71.7 Lymphocytes % 17.5 Monocytes % 6.9 Eosinophils % 2.3 Basophils % 0.8 Nucleated Red Blood Cells % 0.0 Immature Granulocytes # 0.060 H Neutrophils # 5.2 Lymphocytes # 1.3 Monocytes # 0.5 Eosinophils # 0.2 Basophils # 0.1 Nucleated Red Blood Cells # 0.0 Erythrocyte Sedimentation Rate 36 H Prothrombin Time 13.1 Prothrombin Time Ratio 1.0 INR International Normalized Ratio 0.98 Activated Partial Thromboplast Time 31.7 Sodium Level 141 Potassium Level 4.6 Chloride Level 102 Carbon Dioxide Level 32 H Anion Gap 7 Blood Urea Nitrogen 20 Creatinine 1.11 Est Glomerular Filtrat Rate mL/min > 60 Glucose Level 102 Lactic Acid Level 1.8 Calcium Level 8.6 Total Bilirubin 0.3 Direct Bilirubin 0.00 Indirect Bilirubin 0.3 Aspartate Amino Transf (AST/SGOT) 14 L Alanine Aminotransferase (ALT/SGPT) 21 Alkaline Phosphatase 161 H Troponin I < 0.012 C-Reactive Protein 5.5 H Total Protein 7.5 Albumin 3.3 Globulin 4.20 H Albumin/Globulin Ratio 0.78 POC Venous Lactate 1.6 HPI/ROS Admit Date/Time Admit Date/Time October 19, 2018 at 20:49 Hx of Present Illness This is a 58-year-old morbidly obese male with history of hypertension, dyslipidemia, depression, DVT status post IVC filter, iron deficiency anemia, bilateral lower extremity infection status post excisional debridement. Patient presented to the ER stating that he was told by his grinder operator, Dr. Del Valle for purulent left leg infection. Patient presented with temperature of 99.6. No leukocytosis. PMH/Family/Social Past Medical History Past Surgical Hx: other (see hpi) Family History Significant Family History: no pertinent family hx Social History Alcohol Use: none Smoking Status: Never smoker Drug Use: none Exam Exam Constitutional: other (No acute distress) Head: normocephalic, atraumatic Eyes: EOMI, PERRL Respiratory: other (no wheezing or Rhonchi) Cardiovascular: normal pulse Gastrointestinal: soft, non-tender Extremities: normal pulses Coded Allergies: piperacillin (Verified Allergy, Severe, 10/19/18) tazobactam (Verified Allergy, Severe, 10/19/18) Phenothiazines (Verified Allergy, Intermediate, 08/18/18) prochlorperazine (Verified Allergy, Intermediate, 08/18/18) Family History Significant Family History: no pertinent family hx Social History Smoking Status: Never smoker Exam/Review of Systems Vital Signs Vitals Vital Signs Date Temp Pulse Resp B/P (MAP) Pulse Ox O2 O2 Flow FiO2 Time Delivery Rate 10/19/18 75 20 122/65 98 Nasal 3.0 22:11 (84) Cannula 10/19/18 99.6 16:39 KRIS MARTINEZ MD October 19, 2018 23:51
[2018-10-20] VITALS (11 sets, daily range): BP systolic 122–137; BP diastolic 61–68; PULSE 54–104; RESP 18–20
[2018-10-20] MEDS ORDERED: ACETAMINOPHEN 325 MG TAB PO PRN (00:30)
[2018-10-20] MEDS ORDERED: NACL 0.9% 3 ML SYG IV SCH (00:30)
[2018-10-20] MEDS ORDERED: ONDANSETRON 4 MG INJ IV PRN (00:30)
[2018-10-20] MEDS ORDERED: ALBUTEROL/IPRATROPIUM (NEB) 3 ML AMP HHN PRN (00:30)
[2018-10-20] MEDS ORDERED: HYDROCODONE/APAP (5/325) TAB PO PRN (00:30)
[2018-10-20] MEDS ORDERED: PENDING SANTYL ORDER FOR WOUND CARE XX PRN (03:30)
[2018-10-20] MEDS ORDERED: VANCOMYCIN HCL 1.5 GM in SOD CHLORIDE 0.9% 250 ML IVPB SCH (05:00)
[2018-10-20] MEDS: FERROUS SULFATE (EC) 325 MG TAB PO SCH ×2 (08:45→21:00)
[2018-10-20] MEDS: ASPIRIN 81 MG TAB PO SCH (08:45)
[2018-10-20] MEDS: PENTOXIFYLLINE (SR) 400 MG TAB PO SCH ×3 (08:46→21:20)
[2018-10-20] MEDS: ITRACONAZOLE 100 MG CAP PO SCH ×2 (08:46→21:21)
[2018-10-20] MEDS: LOSARTAN 25 MG TAB PO SCH ×2 (08:46→21:21)
[2018-10-20] MEDS: ARIPIPRAZOLE 10 MG TAB PO SCH (08:46)
[2018-10-20] MEDS: ALPRAZOLAM 1 MG TAB PO SCH ×4 (08:46→23:44)
[2018-10-20] MEDS: HEPARIN 5,000 UNIT/1 ML VIAL SC SCH ×2 (08:49→21:43)
[2018-10-20] MEDS ORDERED: VANCOMYCIN IV PER PHARMACY XX SCH (09:00)
[2018-10-20] MEDS ORDERED: HYDR-3980 PO (11:54)
--- NOTE | 2018-10-20 12:48 | PN ---
Date/Time of Note Date/Time of Note DATE: 10/20/18 TIME: 12:26 Assessment/Plan VTE Prophylaxis Risk score (from Nsg)>0 risk: 3 Pharmacological prophylaxis: heparin Lines/Catheters IV Catheter Type (from Nrsg): Mid Line Assessment/Plan Hospital Course 1. Purulent left leg infection: Patient with history of bilateral lower extrem ity wound status post excisional debridement with a wound VAC 2 months ago Patient was sent by his boring machine operator horizontal, Dr. Del Valle Last culture from wound showed staph, Corynebacterium and Pseudomonas Continue vancomycin, further antibiotics per ID Podiatry, ID and wound care consults obtained Wound culture 2. Hypertension: Adjust BP meds as needed 3. History of DVT status post IVC filter 4. Iron deficiency anemia: Continue ferrous sulfate 5. Depression/anxiety: Continue home med Prophylaxis: Heparin DC planning: Follow-up with ID and podiatry recommendations Result Diagram: 10/20/18 0725 10/20/18 0725 Results 24hrs Laboratory Tests Test 10/19/18 21:10 10/19/18 21:11 10/20/18 00:28 10/20/18 07:25 White Blood Count 7.3 # 11.4 #H Red Blood Count 4.52 L 4.69 L Hemoglobin 11.2 L 11.5 L Hematocrit 36.8 L 38.4 L Mean Corpuscular 81.4 L 81.9 L Volume Mean Corpuscular 24.8 L 24.5 L Hemoglobin Mean Corpuscular 30.4 L 29.9 L Hemoglobin Concent Red Cell 16.4 H 16.2 H Distribution Width Platelet Count 251 249 Mean Platelet Volume 9.3 9.9 Immature 0.800 H 0.600 H Granulocytes % Neutrophils % 71.7 94.6 H Lymphocytes % 17.5 3.6 L Monocytes % 6.9 1.0 Eosinophils % 2.3 0.0 Basophils % 0.8 0.2 Nucleated Red Blood 0.0 0.0 Cells % Immature 0.060 H 0.070 H Granulocytes # Neutrophils # 5.2 10.8 H Lymphocytes # 1.3 0.4 L Monocytes # 0.5 0.1 L Eosinophils # 0.2 0.0 Basophils # 0.1 0.0 Nucleated Red Blood 0.0 0.0 Cells # Erythrocyte 36 H Sedimentation Rate Prothrombin Time 13.1 Prothrombin Time 1.0 Ratio INR International 0.98 Normalized Ratio Activated 31.7 Partial Thromboplast Time Sodium Level 141 141 Potassium Level 4.6 4.5 Chloride Level 102 105 Carbon Dioxide Level 32 H 27 Anion Gap 7 9 Blood Urea Nitrogen 20 19 Creatinine 1.11 0.83 Est Glomerular > 60 > 60 Filtrat Rate mL/min Glucose Level 102 228 #H Lactic Acid Level 1.8 1.9 Calcium Level 8.6 8.9 Total Bilirubin 0.3 0.1 L Direct Bilirubin 0.00 0.00 Indirect Bilirubin 0.3 0.1 Aspartate Amino 14 L 19 Transf (AST/SGOT) Alanine 21 11 L Aminotransferase (AL T/SGPT) Alkaline Phosphatase 161 H 151 H Troponin I < 0.012 C-Reactive Protein 5.5 H Total Protein 7.5 7.8 Albumin 3.3 3.5 Globulin 4.20 H 4.30 H Albumin/Globulin 0.78 0.81 Ratio POC Venous Lactate 1.6 Hemoglobin A1c 5.8 Magnesium Level 2.0 Triglycerides Level 66 Cholesterol Level 138 LDL Cholesterol, 99 Calculated HDL Cholesterol 26 L Cholesterol/HDL 5.3 Ratio Subjective 24 Hr Interval Summary Skin: erythema, skin lesions Exam/Review of Systems Exam Vitals Vital Signs Date Temp Pulse Resp B/P (MAP) Pulse Ox O2 O2 Flow FiO2 Time Delivery Rate 10/20/18 98.4 68 19 136/68 98 11:23 (90) 10/20/18 Nasal 2.0 09:00 Cannula Intake and Output 10/19/18 10/19/18 10/20/18 1515:00 23:00 07:00 IntakeIntake Total 60 ml BalanceBalance 60 ml Constitutional: alert, oriented Respiratory: clear to auscultation Cardiovascular: regular rate and rhythm Gastrointestinal: soft; No distended Results Results 24hrs Laboratory Tests Test 10/19/18 21:10 10/19/18 21:11 10/20/18 00:28 10/20/18 07:25 White Blood Count 7.3 # 11.4 #H Red Blood Count 4.52 L 4.69 L Hemoglobin 11.2 L 11.5 L Hematocrit 36.8 L 38.4 L Mean Corpuscular 81.4 L 81.9 L Volume Mean Corpuscular 24.8 L 24.5 L Hemoglobin Mean Corpuscular 30.4 L 29.9 L Hemoglobin Concent Red Cell 16.4 H 16.2 H Distribution Width Platelet Count 251 249 Mean Platelet Volume 9.3 9.9 Immature 0.800 H 0.600 H Granulocytes % Neutrophils % 71.7 94.6 H Lymphocytes % 17.5 3.6 L Monocytes % 6.9 1.0 Eosinophils % 2.3 0.0 Basophils % 0.8 0.2 Nucleated Red Blood 0.0 0.0 Cells % Immature 0.060 H 0.070 H Granulocytes # Neutrophils # 5.2 10.8 H Lymphocytes # 1.3 0.4 L Monocytes # 0.5 0.1 L Eosinophils # 0.2 0.0 Basophils # 0.1 0.0 Nucleated Red Blood 0.0 0.0 Cells # Erythrocyte 36 H Sedimentation Rate Prothrombin Time 13.1 Prothrombin Time 1.0 Ratio INR International 0.98 Normalized Ratio Activated 31.7 Partial Thromboplast Time Sodium Level 141 141 Potassium Level 4.6 4.5 Chloride Level 102 105 Carbon Dioxide Level 32 H 27 Anion Gap 7 9 Blood Urea Nitrogen 20 19 Creatinine 1.11 0.83 Est Glomerular > 60 > 60 Filtrat Rate mL/min Glucose Level 102 228 #H Lactic Acid Level 1.8 1.9 Calcium Level 8.6 8.9 Total Bilirubin 0.3 0.1 L Direct Bilirubin 0.00 0.00 Indirect Bilirubin 0.3 0.1 Aspartate Amino 14 L 19 Transf (AST/SGOT) Alanine 21 11 L Aminotransferase (AL T/SGPT) Alkaline Phosphatase 161 H 151 H Troponin I < 0.012 C-Reactive Protein 5.5 H Total Protein 7.5 7.8 Albumin 3.3 3.5 Globulin 4.20 H 4.30 H Albumin/Globulin 0.78 0.81 Ratio POC Venous Lactate 1.6 Hemoglobin A1c 5.8 Magnesium Level 2.0 Triglycerides Level 66 Cholesterol Level 138 LDL Cholesterol, 99 Calculated HDL Cholesterol 26 L Cholesterol/HDL 5.3 Ratio Medications Medication Current Medications IV Flush (NS 3 ml) 3 ml PER PROTOCOL IV ; Start 10/20/18 at 00:30 Ondansetron HCl (Zofran Inj) 4 mg Q6H PRN IV NAUSEA/VOMITING; Start 10/20/18 at 00:30 Acetaminophen (Tylenol Tab) 650 mg Q6H PRN PO .PAIN 1-3 OR TEMP; Start 10/20/18 at 00:30 Acetaminophen/ Hydrocodone Bitart ([place] (5/325)) 1 tab Q6H PRN PO .PAIN 4-6; Start 10/20/18 at 00:30 Heparin Sodium (Porcine) (Heparin (5000 Units/1ml)) 5,000 unit Q12 SC Last administered on 10/20/18at 08:49; Admin Dose 5,000 UNIT; Start 10/20/18 at 09:00 Albuterol/ Ipratropium (Duoneb) 3 ml Q2H RESP THERAPY PRN HHN SHORTNESS OF BREATH; Start 10/20/18 at 00:30 Alprazolam (Xanax) 2 mg TID PO Last administered on 10/20/18 08:46; Admin Dose 2 MG; Start 10/20/18 at 09:00 Aripiprazole (Abilify) 10 mg DAILY PO Last administered on 10/20/18 08:46; Admin Dose 10 MG; Start 10/20/18 at 09:00 Aspirin (Aspirin) 81 mg DAILY PO Last administered on 10/20/18 08:45; Admin Dose 81 MG; Start 10/20/18 at 09:00 Ferrous Sulfate (Ferrous Sulfate (Ec)) 325 mg BID PO Last administered on 10/20/18 08:45; Admin Dose 325 MG; Start 10/20/18 at 09:00 Itraconazole (Sporanox) 200 mg BID PO Last administered on 10/20/18 08:46; Admin Dose 200 MG; Start 10/20/18 at 09:00 Losartan Potassium (Cozaar) 25 mg BID PO Last administered on 10/20/18 08:46; Admin Dose 25 MG; Start 10/20/18 at 09:00 Pentoxifylline (Trental) 400 mg TID PO Last administered on 10/20/18 08:46; Admin Dose 400 MG; Start 10/20/18 at 09:00 Vancomycin HCl (Vanco Iv Per Pharmacy) VANCOMYCIN PER PHARMACY PER PROTOCOL XX ; Start 10/20/18 at 09:00 Atorvastatin Calcium (Lipitor) 10 mg DAILY@21 PO ; Start 10/20/18 at 21:00 Miscellaneous Information (Pending [facility]yl Order For Wound Care) This patient ricardo... PRN PRN XX WOUND CARE; Start 10/20/18 at 03:30 Vancomycin HCl 1.75 gm/Sodium Chloride 500 ml @ 125 mls/hr Q12H IVPB ; Start 10/20/18 at 18:00 TONNY MARTI October 20, 2018 12:37
--- NOTE | 2018-10-20 15:32 | CONS ---
Assessment/Plan Assessment/Plan Hospital Course (Demo Recall) ID PRELIMINARY NOTE => Please see Dr. Rowe's FULL CONSULT NOTE DICTATION pen ding steel unloader/posting into chart. CURRENT ABX: DAY # => Vanco IV * s/p Anaphylactic reaction to Zosyn IV 10/20/18 0725 10/20/18 0725 HPI * 58 yo Obese M admit for evaluation and management of acute leg cellulitis == S/P recent admission left AMA? now returns * s/p ANAPHYLAXIS REACTION TO ZOSYN == Merrem ordered by Dr. Rowe - yet quest ioned by pharmacy; hence I changed to Levaquin today * Purulent left leg infection: Patient with history of bilateral lower extremity wound status post excisional debridement with a wound VAC 2 months ago MICRO/OTHER * 10/17/18 LEFT LEG CX: WOUND CULTURE Preliminary Organism 1 PSEUDOMONAS AERUGINOSA QUANTITY 2+ Organism 2 STREP, BETA HEMOLYTIC GRP G QUANTITY 2+ Organism 3 CORYNEBACTERIUM SPECIES QUANTITY 3+ * 10/17/18 RIGHT LEG CX: WOUND CULTURE Final Organism 1 PSEUDOMONAS AERUGINOSA QUANTITY 2+ Organism 2 STREP, BETA HEMOLYTIC GRP G QUANTITY 3+ Organism 3 CORYNEBACTERIUM SPECIES QUANTITY 3+ P.AERUG P.AERUG M.I.C. RX M.I.C. RX --------- --- --------- --- AMIKACIN <=2 S AZTREONAM S CEFEPIME <=1 S CEFTAZIDIME 2 S CIPROFLOXACIN <=0.25 S GENTAMICIN <=1 S LEVOFLOXACIN 0.5 S MEROPENEM 0.094 S TOBRAMYCIN <=1 S PIPERACILLIN/TAZOBACTAM 8 S 58 yo M admit with: 1. Acute on chronic bilateral lower extremity cellulitis with chronic venous stasis status post I&D with wound VAC placement 2. Obesity 3. Acute kidney injury-> Vanco was DC'd prior admission 4. Hypertension 5. History of DVT 6. s/p Anaphylactic reaction to Zosyn on pm ABX ALLERGIES: ZOSYN INVASIVES: PI CURRENT ABX: DAY # Vanco IV + Levaquin ID RECOMMENDATIONS/PLAN: 1. Rx Vanco IV + Levaquin -- Will avoid Merrem at this time 2. Repeat wound Cx . Consultation Date/Type/Reason Admit Date/Time October 19, 2018 at 20:49 Initial Consult Date Date/Time of Note DATE: 10/20/18 TIME: 15:20 Exam/Review of Systems Exam Vitals Vital Signs Date Temp Pulse Resp B/P (MAP) Pulse Ox O2 O2 Flow FiO2 Time Delivery Rate 10/20/18 62 12:35 10/20/18 98.4 19 136/68 98 11:23 (90) 10/20/18 Nasal 2.0 09:00 Cannula Intake and Output 10/19/18 10/19/18 10/20/18 1515:00 23:00 07:00 IntakeIntake Total 60 ml BalanceBalance 60 ml Results Result Diagram: 10/20/1872410/20/18724 Results 24hrs Laboratory Tests Test 10/19/18 21:10 10/19/18 21:11 10/20/18 00:28 10/20/18 07:25 White Blood Count 7.3 # 11.4 #H Red Blood Count 4.52 L 4.69 L Hemoglobin 11.2 L 11.5 L Hematocrit 36.8 L 38.4 L Mean Corpuscular 81.4 L 81.9 L Volume Mean Corpuscular 24.8 L 24.5 L Hemoglobin Mean Corpuscular 30.4 L 29.9 L Hemoglobin Concent Red Cell 16.4 H 16.2 H Distribution Width Platelet Count 251 249 Mean Platelet Volume 9.3 9.9 Immature 0.800 H 0.600 H Granulocytes % Neutrophils % 71.7 94.6 H Lymphocytes % 17.5 3.6 L Monocytes % 6.9 1.0 Eosinophils % 2.3 0.0 Basophils % 0.8 0.2 Nucleated Red Blood 0.0 0.0 Cells % Immature 0.060 H 0.070 H Granulocytes # Neutrophils # 5.2 10.8 H Lymphocytes # 1.3 0.4 L Monocytes # 0.5 0.1 L Eosinophils # 0.2 0.0 Basophils # 0.1 0.0 Nucleated Red Blood 0.0 0.0 Cells # Erythrocyte 36 H Sedimentation Rate Prothrombin Time 13.1 Prothrombin Time 1.0 Ratio INR International 0.98 Normalized Ratio Activated 31.7 Partial Thromboplast Time Sodium Level 141 141 Potassium Level 4.6 4.5 Chloride Level 102 105 Carbon Dioxide Level 32 H 27 Anion Gap 7 9 Blood Urea Nitrogen 20 19 Creatinine 1.11 0.83 Est Glomerular > 60 > 60 Filtrat Rate mL/min Glucose Level 102 228 #H Lactic Acid Level 1.8 1.9 Calcium Level 8.6 8.9 Total Bilirubin 0.3 0.1 L Direct Bilirubin 0.00 0.00 Indirect Bilirubin 0.3 0.1 Aspartate Amino 14 L 19 Transf (AST/SGOT) Alanine 21 11 L Aminotransferase (AL T/SGPT) Alkaline Phosphatase 161 H 151 H Troponin I < 0.012 C-Reactive Protein 5.5 H Total Protein 7.5 7.8 Albumin 3.3 3.5 Globulin 4.20 H 4.30 H Albumin/Globulin 0.78 0.81 Ratio POC Venous Lactate 1.6 Hemoglobin A1c 5.8 Magnesium Level 2.0 Triglycerides Level 66 Cholesterol Level 138 LDL Cholesterol, 99 Calculated HDL Cholesterol 26 L Cholesterol/HDL 5.3 Ratio Medications Medication Current Medications IV Flush (NS 3 ml) 3 ml PER PROTOCOL IV ; Start 10/20/18 at 00:30 Ondansetron HCl (Zofran Inj) 4 mg Q6H PRN IV NAUSEA/VOMITING; Start 10/20/18 at 00:30 Acetaminophen (Tylenol Tab) 650 mg Q6H PRN PO .PAIN 1-3 OR TEMP; Start 10/20/18 at 00:30 Acetaminophen/ Hydrocodone Bitart ([place] (5/325)) 1 tab Q6H PRN PO .PAIN 4-6; Start 10/20/18 at 00:30 Heparin Sodium (Porcine) (Heparin (5000 Units/1ml)) 5,000 unit Q12 SC Last administered on 10/20/18at 08:49; Admin Dose 5,000 UNIT; Start 10/20/18 at 09:00 Albuterol/ Ipratropium (Duoneb) 3 ml Q2H RESP THERAPY PRN HHN SHORTNESS OF BREATH; Start 10/20/18 at 00:30 Alprazolam (Xanax) 2 mg TID PO Last administered on 10/20/18at 08:46; Admin Dose 2 MG; Start 10/20/18 at 09:00 Aripiprazole (Abilify) 10 mg DAILY PO Last administered on 10/20/18at 08:46; Admin Dose 10 MG; Start 10/20/18 at 09:00 Aspirin (Aspirin) 81 mg DAILY PO Last administered on 10/20/18 08:45; Admin Dose 81 MG; Start 10/20/18 at 09:00 Ferrous Sulfate (Ferrous Sulfate (Ec)) 325 mg BID PO Last administered on 10/20/18 08:45; Admin Dose 325 MG; Start 10/20/18 at 09:00 Itraconazole (Sporanox) 200 mg BID PO Last administered on 10/20/18 08:46; Admin Dose 200 MG; Start 10/20/18 at 09:00 Losartan Potassium (Cozaar) 25 mg BID PO Last administered on 10/20/18 08:46; Admin Dose 25 MG; Start 10/20/18 at 09:00 Pentoxifylline (Trental) 400 mg TID PO Last administered on 10/20/18 12:54; Admin Dose 400 MG; Start 10/20/18 at 09:00 Vancomycin HCl (Vanco Iv Per Pharmacy) VANCOMYCIN PER PHARMACY PER PROTOCOL XX ; Start 10/20/18 at 09:00 Atorvastatin Calcium (Lipitor) 10 mg DAILY@21 PO ; Start 10/20/18 at 21:00 [facility]isc[facility] This patient ricardo... PRN PRN XX WOUND CARE; Start 10/20/18 at 03:30 Vancomycin HCl 1.75 gm/Sodium Chloride 500 ml @ 125 mls/hr Q12H IVPB ; Start 10/20/18 at 18:00 Meropenem/Sodium Chloride 50 ml @ 100 mls/hr Q12 IVPB ; Start 10/20/18 at 21:00; Status EMMANUEL YODER NP October 20, 2018 15:30
[2018-10-20] MEDS: LEVOFLOXACIN 750MG/D5W (PMX) 150 ML IVPB SCH (15:55)
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
[2018-10-20] MEDS: VANCOMYCIN HCL 1.75 GM in SOD CHLORIDE 0.9% 500 ML IVPB SCH (18:16)
[2018-10-20] MEDS ORDERED: LOVASTATIN PO SCH (21:00)
[2018-10-20] MEDS ORDERED: MEROPENEM 1 GM/50ML(PMX) 50 ML IVPB SCH (21:00)
[2018-10-20] MEDS: ATORVASTATIN 10 MG TAB PO SCH (21:20)
[2018-10-20] MEDS ORDERED: morphine 4 MG/ML VIAL IV ONE (23:30)
[2018-10-21] VITALS (12 sets, daily range): BP systolic 105–138; BP diastolic 57–71; PULSE 46–62; RESP 19–20
[2018-10-21] MEDS: VANCOMYCIN HCL 1.75 GM in SOD CHLORIDE 0.9% 500 ML IVPB SCH ×2 (05:29→17:25)
[2018-10-21] MEDS: LOSARTAN 25 MG TAB PO SCH ×2 (09:37→21:00)
[2018-10-21] MEDS: FERROUS SULFATE (EC) 325 MG TAB PO SCH ×2 (09:37→21:48)
[2018-10-21] MEDS: PENTOXIFYLLINE (SR) 400 MG TAB PO SCH ×3 (09:37→21:48)
[2018-10-21] MEDS: ARIPIPRAZOLE 10 MG TAB PO SCH (09:37)
[2018-10-21] MEDS: ASPIRIN 81 MG TAB PO SCH (09:37)
[2018-10-21] MEDS: ITRACONAZOLE 100 MG CAP PO SCH ×2 (09:38→21:48)
[2018-10-21] MEDS: ALPRAZOLAM 1 MG TAB PO SCH ×3 (09:38→21:48)
[2018-10-21] MEDS: HEPARIN 5,000 UNIT/1 ML VIAL SC SCH ×2 (09:45→21:56)
--- NOTE | 2018-10-21 10:59 | CONS ---
Assessment/Plan Assessment/Plan Assessment/Plan (Daily) Bilateral lower extremity cellulitis Chronic venous hypertension with ulceration b/l lower extremity Lymphedema Pain in limb Venous insufficiency Onychomycosis Tinea pedis Plan: Reviewed lab findings with patient. Wound cultures were obtained. Recommend to continue with compression therapy. Patient would benefit from OR wound debridement. Will plan for tomorrow and coordinate with OR. Continue with abx therapy per ID recommendations. Weight bearing as tolerated. Patient will need outpatient follow up in wound care clinic. He will also need home health for dressing changes and possible wound VAC. Consultation Date/Type/Reason Admit Date/Time October 19, 2018 at 20:49 Date/Time of Note DATE: 10/21/18 TIME: 10:50 Hx of Present Illness 58 y/o M patient with chronic ulcerations to bilateral lower extremities was admitted from wound care clinic for concerns of cellulitis and wound infection. Patient states he has been taking medications and using compression stockings to assist with edema control. He also reports he has secured an apartment and is able to receive home health visits. Patient denies constitutional symptoms. Reports chronic pain to the lower extremity ulcer sites, right worse than left. ROS negative except for HPI Past Medical History hypertension, dyslipidemia, depression, DVT status post IVC filter, iron deficiency anemia Home Meds Active Scripts Ferrous Sulfate* (Ferrous Sulfate*) 325 Mg Tabec, 325 MG PO BID, #60 TAB Prov:DANIELLE JIMENEZ V. INCLUSION MANAGER 08/25/18 Clindamycin Hcl* (Clindamycin Hcl*) 300 Mg Capsule, 300 MG PO QID, #56 CAP Prov:JIMENEZJORGEA VAsha INCLUSION MANAGER 08/24/18 Aspirin (Aspirin) 81 Mg Chew, 81 MG PO DAILY, #30 TAB Prov:JIMENEZJORGEA Frank INCLUSION MANAGER 08/24/18 Pentoxifylline* (Pentoxifylline*) 400 Mg Tablet.sa, 400 MG PO TID, #90 TAB Prov:DANIELLE JIMENEZ V. INCLUSION MANAGER 08/24/18 Itraconazole* (Itraconazole*) 100 Mg Capsule, 200 MG PO BID, #30 CAP Prov:JIMENEZDANIELLE V. INCLUSION MANAGER 08/24/18 Ciprofloxacin Hcl* (Ciprofloxacin Hcl*) 500 Mg Tablet, 500 MG PO BID@06,18, #30 TAB Prov:DANIELLE JIMENEZ V. INCLUSION MANAGER 08/24/18 Reported Medications Hydrocodone/Acetaminophen ([place] 10-325 Tablet) 1 Each Tablet, 1 EACH PO Q6 PRN for PAIN LEVEL 6-10, TAB 10/20/18 Aripiprazole* (Abilify*) 10 Mg Tablet, 10 MG PO DAILY, #30 TAB 08/18/18 Alprazolam* (Xanax*) 2 Mg Tablet, 2 MG PO TID, TAB 08/18/18 Losartan Potassium* (Cozaar*) 25 Mg Tablet, 25 MG PO BID, #60 TAB 08/18/18 Lovastatin (Lovastatin) 40 Mg Tablet, 30 MG PO HS, TAB 08/18/18 Medications Current Medications IV Flush (NS 3 ml) 3 ml PER PROTOCOL IV ; Start 10/20/18 at 00:30 Ondansetron HCl (Zofran Inj) 4 mg Q6H PRN IV NAUSEA/VOMITING; Start 10/20/18 at 00:30 Acetaminophen (Tylenol Tab) 650 mg Q6H PRN PO .PAIN 1-3 OR TEMP; Start 10/20/18 at 00:30 Acetaminophen/ Hydrocodone Bitart ([place] (5/325)) 1 tab Q6H PRN PO .PAIN 4-6; Start 10/20/18 at 00:30 Heparin Sodium (Porcine) (Heparin (5000 Units/1ml)) 5,000 unit Q12 SC Last administered on 10/21/18at 09:45; Admin Dose 5,000 UNIT; Start 10/20/18 at 09:00 Albuterol/ Ipratropium (Duoneb) 3 ml Q2H RESP THERAPY PRN HHN SHORTNESS OF BREATH; Start 10/20/18 at 00:30 Alprazolam (Xanax) 2 mg TID PO Last administered on 10/21/18at 09:38; Admin Dose 2 MG; Start 10/20/18 at 09:00 Aripiprazole (Abilify) 10 mg DAILY PO Last administered on 10/21/18 09:37; Admin Dose 10 MG; Start 10/20/18 at 09:00 Aspirin (Aspirin) 81 mg DAILY PO Last administered on 10/21/18at 09:37; Admin Dose 81 MG; Start 10/20/18 at 09:00 Ferrous Sulfate (Ferrous Sulfate (Ec)) 325 mg BID PO Last administered on 10/21/18 09:37; Admin Dose 325 MG; Start 10/20/18 at 09:00 Itraconazole (Sporanox) 200 mg BID PO Last administered on 10/21/18 09:38; Admin Dose 200 MG; Start 10/20/18 at 09:00 Losartan Potassium (Cozaar) 25 mg BID PO Last administered on 10/21/18 09:37; Admin Dose 25 MG; Start 10/20/18 at 09:00 Pentoxifylline (Trental) 400 mg TID PO Last administered on 10/21/18 09:37; Admin Dose 400 MG; Start 10/20/18 at 09:00 Vancomycin HCl (Vanco Iv Per Pharmacy) VANCOMYCIN PER PHARMACY PER PROTOCOL XX ; Start 10/20/18 at 09:00 Atorvastatin Calcium (Lipitor) 10 mg DAILY@21 PO Last administered on 10/20/18 21:20; Admin Dose 10 MG; Start 10/20/18 at 21:00 Miscellaneous Information (Pending [facility] Order For Wound Care) This patient ricardo... PRN PRN XX WOUND CARE; Start 10/20/18 at 03:30 Vancomycin HCl 1.75 gm/Sodium Chloride 500 ml @ 125 mls/hr Q12H IVPB Last administered on 10/21/18at 05:29; Admin Dose 125 MLS/HR; Start 10/20/18 at 18:00 Levofloxacin/ Dextrose 150 ml @ 100 mls/hr Q24H IVPB Last administered on 10/20/18at 15:55; Admin Dose 100 MLS/HR; Start 10/20/18 at 15:30 Allergies: Coded Allergies: piperacillin (Verified Allergy, Severe, 10/19/18) tazobactam (Verified Allergy, Severe, 10/19/18) Phenothiazines (Verified Allergy, Intermediate, 08/18/18) prochlorperazine (Verified Allergy, Intermediate, 08/18/18) Past Surgical History wound debridements and IVC filter placement Family History Significant Family History: no pertinent family hx Social History Smoking Status: Former smoker Exam/Review of Systems Exam Vitals Vital Signs Date Temp Pulse Resp B/P (MAP) Pulse Ox O2 O2 Flow FiO2 Time Delivery Rate 10/21/18 46 08:00 10/21/18 98.2 20 120/64 95 07:34 (82) 10/20/18 Nasal 2.0 20:00 Cannula Intake and Output 10/20/18 10/20/18 10/21/18 1515:00 23:00 07:00 IntakeIntake Total 1550 ml 250 ml BalanceBalance 1550 ml 250 ml Exam DP/PT pulses palpable Protective sensations intact 2+ pitting edema b/l Right lower leg ulceration 14 x 10 x 0.2cm granular in nature with some hyperkeratotic rim and surrounding erythema, No active purulent drainage. No probing to bone Left lower leg ulceration 10 x 8 x 0.2cm granular in nature with some fibrotic deposits, surrounding erythema. No active purulent drainage. No probing to bone. Pain with palpation to the ulceration site right worse than left 5/5 muscle strength in all compartments of the foot. Non invasive studies 08/27/18 IMPRESSION: No focal area of high degree stenosis bilaterally Results Result Diagram: 10/21/18 0628 10/21/18 0628 Results 24hrs Laboratory Tests Test 10/21/18 06:28 White Blood Count 9.6 Red Blood Count 4.46 L Hemoglobin 11.2 L Hematocrit 36.9 L Mean Corpuscular Volume 82.7 Mean Corpuscular Hemoglobin 25.1 L Mean Corpuscular Hemoglobin Concent 30.4 L Red Cell Distribution Width 16.4 H Platelet Count 165 # Mean Platelet Volume 10.3 Immature Granulocytes % 0.500 H Neutrophils % 86.1 H Lymphocytes % 9.1 L Monocytes % 3.9 Eosinophils % 0.1 Basophils % 0.3 Nucleated Red Blood Cells % 0.0 Immature Granulocytes # 0.050 H Neutrophils # 8.3 H Lymphocytes # 0.9 Monocytes # 0.4 Eosinophils # 0.0 Basophils # 0.0 Nucleated Red Blood Cells # 0.0 Sodium Level 140 Potassium Level 4.9 Chloride Level 106 Carbon Dioxide Level 23 Anion Gap 11 Blood Urea Nitrogen 23 H Creatinine 0.86 Est Glomerular Filtrat Rate mL/min > 60 Glucose Level 136 # Calcium Level 8.9 Phosphorus Level 3.7 Magnesium Level 2.0 Medications Medication Current Medications IV Flush (NS 3 ml) 3 ml PER PROTOCOL IV ; Start 10/20/18 at 00:30 Ondansetron HCl (Zofran Inj) 4 mg Q6H PRN IV NAUSEA/VOMITING; Start 10/20/18 at 00:30 Acetaminophen (Tylenol Tab) 650 mg Q6H PRN PO .PAIN 1-3 OR TEMP; Start 10/20/18 at 00:30 Acetaminophen/ Hydrocodone Bitart ([place] (5/325)) 1 tab Q6H PRN PO .PAIN 4-6; Start 10/20/18 at 00:30 Heparin Sodium (Porcine) (Heparin (5000 Units/1ml)) 5,000 unit Q12 SC Last administered on 10/21/18 09:45; Admin Dose 5,000 UNIT; Start 10/20/18 at 09:00 Albuterol/ Ipratropium (Duoneb) 3 ml Q2H RESP THERAPY PRN HHN SHORTNESS OF BREATH; Start 10/20/18 at 00:30 Alprazolam (Xanax) 2 mg TID PO Last administered on 10/21/18 09:38; Admin Dose 2 MG; Start 10/20/18 at 09:00 Aripiprazole (Abilify) 10 mg DAILY PO Last administered on 10/21/18 09:37; Admin Dose 10 MG; Start 10/20/18 at 09:00 Aspirin (Aspirin) 81 mg DAILY PO Last administered on 10/21/18 09:37; Admin Dose 81 MG; Start 10/20/18 at 09:00 Ferrous Sulfate (Ferrous Sulfate (Ec)) 325 mg BID PO Last administered on 10/21/18 09:37; Admin Dose 325 MG; Start 10/20/18 at 09:00 Itraconazole (Sporanox) 200 mg BID PO Last administered on 10/21/18 09:38; Admin Dose 200 MG; Start 10/20/18 at 09:00 Losartan Potassium (Cozaar) 25 mg BID PO Last administered on 10/21/18 09:37; Admin Dose 25 MG; Start 10/20/18 at 09:00 Pentoxifylline (Trental) 400 mg TID PO Last administered on 10/21/18 09:37; Admin Dose 400 MG; Start 10/20/18 at 09:00 Vancomycin HCl (Vanco Iv Per Pharmacy) VANCOMYCIN PER PHARMACY PER PROTOCOL XX ; Start 10/20/18 at 09:00 Atorvastatin Calcium (Lipitor) 10 mg DAILY@21 PO Last administered on 10/20/18 21:20; Admin Dose 10 MG; Start 10/20/18 at 21:00 Miscellaneous Information (Pending [facility] Order For Wound Care) This patient ricardo... PRN PRN XX WOUND CARE; Start 10/20/18 at 03:30 Vancomycin HCl 1.75 gm/Sodium Chloride 500 ml @ 125 mls/hr Q12H IVPB Last a dministered on 10/21/18at 05:29; Admin Dose 125 MLS/HR; Start 10/20/18 at 18:00 Levofloxacin/ Dextrose 150 ml @ 100 mls/hr Q24H IVPB Last administered on 10/20/18at 15:55; Admin Dose 100 MLS/HR; Start 10/20/18 at 15:30 ROSEANNE BAIRD DPM October 21, 2018 10:59
--- NOTE | 2018-10-21 12:32 | PN ---
Date/Time of Note Date/Time of Note DATE: 10/21/18 TIME: 12:32 Assessment/Plan VTE Prophylaxis Risk score (from Ns)>0 risk: 3 SCD applied (from [facility]): No SCD contraindicated: other Pharmacological prophylaxis: heparin Lines/Catheters IV Catheter Type (from [facility]): Mid Line Assessment/Plan Hospital Course subjective: No new complaints, has chronic pain in his extremities. objective : Constitutional: alert, oriented Respiratory: clear to auscultation Cardiovascular: regular rate and rhythm Gastrointestinal: soft; No distended assessment and plan: 1. Purulent left leg infection: Patient with history of bilateral lower extremity wound status post excisional debridement with a wound VAC 2 months ago -Patient was sent by his ultrasound technologist, Dr. Del Valle -Last culture from wound showed staph, Corynebacterium and Pseudomonas -Continue empiric antibiotics, ID to manage 2. Hypertension: Adjust BP meds as needed 3. History of DVT status post IVC filter 4. Iron deficiency anemia: Continue ferrous sulfate 5. Depression/anxiety: Continue home med 6. Bilateral lower extremity cellulitis 7. Chronic venous hypertension with ulceration b/l lower extremity 8. Lymphedema 9. Venous insufficiency Prophylaxis: Heparin Disposal: Planned for OR tomorrow for debridement, follow-up wound cultures Result Diagram: 10/21/18 0628 10/21/18 0628 Results 24hrs Laboratory Tests Test 10/21/18 06:28 White Blood Count 9.6 Red Blood Count 4.46 L Hemoglobin 11.2 L Hematocrit 36.9 L Mean Corpuscular Volume 82.7 Mean Corpuscular Hemoglobin 25.1 L Mean Corpuscular Hemoglobin Concent 30.4 L Red Cell Distribution Width 16.4 H Platelet Count 165 # Mean Platelet Volume 10.3 Immature Granulocytes % 0.500 H Neutrophils % 86.1 H Lymphocytes % 9.1 L Monocytes % 3.9 Eosinophils % 0.1 Basophils % 0.3 Nucleated Red Blood Cells % 0.0 Immature Granulocytes # 0.050 H Neutrophils # 8.3 H Lymphocytes # 0.9 Monocytes # 0.4 Eosinophils # 0.0 Basophils # 0.0 Nucleated Red Blood Cells # 0.0 Sodium Level 140 Potassium Level 4.9 Chloride Level 106 Carbon Dioxide Level 23 Anion Gap 11 Blood Urea Nitrogen 23 H Creatinine 0.86 Est Glomerular Filtrat Rate mL/min > 60 Glucose Level 136 # Calcium Level 8.9 Phosphorus Level 3.7 Magnesium Level 2.0 Exam/Review of Systems Exam Vitals Vital Signs Date Temp Pulse Resp B/P (MAP) Pulse Ox O2 O2 Flow FiO2 Time Delivery Rate 10/21/18 98.6 52 20 126/62 96 11:43 (83) 10/20/18 Nasal 2.0 20:00 Cannula Intake and Output 10/20/18 10/20/18 10/21/18 1515:00 23:00 07:00 IntakeIntake Total 1550 ml 250 ml BalanceBalance 1550 ml 250 ml Results Results 24hrs Laboratory Tests Test 10/21/18 06:28 White Blood Count 9.6 Red Blood Count 4.46 L Hemoglobin 11.2 L Hematocrit 36.9 L Mean Corpuscular Volume 82.7 Mean Corpuscular Hemoglobin 25.1 L Mean Corpuscular Hemoglobin Concent 30.4 L Red Cell Distribution Width 16.4 H Platelet Count 165 # Mean Platelet Volume 10.3 Immature Granulocytes % 0.500 H Neutrophils % 86.1 H Lymphocytes % 9.1 L Monocytes % 3.9 Eosinophils % 0.1 Basophils % 0.3 Nucleated Red Blood Cells % 0.0 Immature Granulocytes # 0.050 H Neutrophils # 8.3 H Lymphocytes # 0.9 Monocytes # 0.4 Eosinophils # 0.0 Basophils # 0.0 Nucleated Red Blood Cells # 0.0 Sodium Level 140 Potassium Level 4.9 Chloride Level 106 Carbon Dioxide Level 23 Anion Gap 11 Blood Urea Nitrogen 23 H Creatinine 0.86 Est Glomerular Filtrat Rate mL/min > 60 Glucose Level 136 # Calcium Level 8.9 Phosphorus Level 3.7 Magnesium Level 2.0 Medications Medication Current Medications IV Flush (NS 3 ml) 3 ml PER PROTOCOL IV ; Start 10/20/18 at 00:30 Ondansetron HCl (Zofran Inj) 4 mg Q6H PRN IV NAUSEA/VOMITING; Start 10/20/18 at 00:30 Acetaminophen (Tylenol Tab) 650 mg Q6H PRN PO .PAIN 1-3 OR TEMP; Start 10/20/18 at 00:30 Acetaminophen/ Hydrocodone Bitart ([place] (5/325)) 1 tab Q6H PRN PO .PAIN 4-6; Start 10/20/18 at 00:30 Heparin Sodium (Porcine) (Heparin (5000 Units/1ml)) 5,000 unit Q12 SC Last administered on 10/21/18 09:45; Admin Dose 5,000 UNIT; Start 10/20/18 at 09:00 Albuterol/ Ipratropium (Duoneb) 3 ml Q2H RESP THERAPY PRN HHN SHORTNESS OF BREATH; Start 10/20/18 at 00:30 Alprazolam (Xanax) 2 mg TID PO Last administered on 10/21/18 09:38; Admin Dose 2 MG; Start 10/20/18 at 09:00 Aripiprazole (Abilify) 10 mg DAILY PO Last administered on 10/21/18 09:37; Admin Dose 10 MG; Start 10/20/18 at 09:00 Aspirin (Aspirin) 81 mg DAILY PO Last administered on 10/21/18 09:37; Admin Dose 81 MG; Start 10/20/18 at 09:00 Ferrous Sulfate (Ferrous Sulfate (Ec)) 325 mg BID PO Last administered on 10/21/18 09:37; Admin Dose 325 MG; Start 10/20/18 at 09:00 Itraconazole (Sporanox) 200 mg BID PO Last administered on 10/21/18 09:38; Admin Dose 200 MG; Start 10/20/18 at 09:00 Losartan Potassium (Cozaar) 25 mg BID PO Last administered on 10/21/18 09:37; Admin Dose 25 MG; Start 10/20/18 at 09:00 Pentoxifylline (Trental) 400 mg TID PO Last administered on 10/21/18 09:37; Admin Dose 400 MG; Start 10/20/18 at 09:00 Vancomycin HCl (Vanco Iv Per Pharmacy) VANCOMYCIN PER PHARMACY PER PROTOCOL XX ; Start 10/20/18 at 09:00 Atorvastatin Calcium (Lipitor) 10 mg DAILY@21 PO Last administered on 10/20/18 21:20; Admin Dose 10 MG; Start 10/20/18 at 21:00 Miscellaneous Information (Pending [facility] Order For Wound Care) This patient ricardo... PRN PRN XX WOUND CARE; Start 10/20/18 at 03:30 Vancomycin HCl 1.75 gm/Sodium Chloride 500 ml @ 125 mls/hr Q12H IVPB Last administered on 10/21/18 05:29; Admin Dose 125 MLS/HR; Start 10/20/18 at 18:00 Levofloxacin/ Dextrose 150 ml @ 100 mls/hr Q24H IVPB Last administered on 10/20/18at 15:55; Admin Dose 100 MLS/HR; Start 10/20/18 at 15:30 SHIVAM QUINTANILLA October 21, 2018 12:32
--- NOTE | 2018-10-21 15:10 | CONS ---
Assessment/Plan Assessment/Plan Hospital Course (Demo Recall) No acute events overnight patient looks comfortable no fevers WBC 9.6 neutrophils 86.1 BUN 23 creatinine 0.86 Microbiology: Blood cultures negative MRSA swab negative wound culture pending Allergies: Zosyn that cause anaphylaxis Antimicrobials: Vanco Levaquin Physical examination: Obese well-developed middle-aged man who is in no distress. Head atraumatic normocephalic neck is supple chest rise symmetrical breath sounds diminished bases heart S1-S2 abdomen soft bowel sounds present ex tremities: Bilateral lower extremities Miguel Angel wrap Assessment: 1. Bilateral lower extremities acute on chronic cellulitis 2. Morbid obesity 3. History of DVT 4. Hypertension Plan: Patient remains stable podiatry on case, continue antibiotics and await for wound culture Consultation Date/Type/Reason Admit Date/Time October 19, 2018 at 20:49 Initial Consult Date Type of Consult id Date/Time of Note DATE: 10/21/18 TIME: 15:10 Exam/Review of Systems Exam Vitals Vital Signs Date Temp Pulse Resp B/P (MAP) Pulse Ox O2 O2 Flow FiO2 Time Delivery Rate 10/21/18 50 12:00 10/21/18 98.6 20 126/62 96 11:43 (83) 10/21/18 Nasal 2.0 08:00 Cannula Intake and Output 10/20/18 10/20/18 10/21/18 1515:00 23:00 07:00 IntakeIntake Total 1550 ml 250 ml BalanceBalance 1550 ml 250 ml Results Result Diagram: 10/21/18 0628 10/21/18 0628 Results 24hrs Laboratory Tests Test 10/21/18 06:28 White Blood Count 9.6 Red Blood Count 4.46 L Hemoglobin 11.2 L Hematocrit 36.9 L Mean Corpuscular Volume 82.7 Mean Corpuscular Hemoglobin 25.1 L Mean Corpuscular Hemoglobin Concent 30.4 L Red Cell Distribution Width 16.4 H Platelet Count 165 # Mean Platelet Volume 10.3 Immature Granulocytes % 0.500 H Neutrophils % 86.1 H Lymphocytes % 9.1 L Monocytes % 3.9 Eosinophils % 0.1 Basophils % 0.3 Nucleated Red Blood Cells % 0.0 Immature Granulocytes # 0.050 H Neutrophils # 8.3 H Lymphocytes # 0.9 Monocytes # 0.4 Eosinophils # 0.0 Basophils # 0.0 Nucleated Red Blood Cells # 0.0 Sodium Level 140 Potassium Level 4.9 Chloride Level 106 Carbon Dioxide Level 23 Anion Gap 11 Blood Urea Nitrogen 23 H Creatinine 0.86 Est Glomerular Filtrat Rate mL/min > 60 Glucose Level 136 # Calcium Level 8.9 Phosphorus Level 3.7 Magnesium Level 2.0 Medications Medication Current Medications IV Flush (NS 3 ml) 3 ml PER PROTOCOL IV ; Start 10/20/18 at 00:30 Ondansetron HCl (Zofran Inj) 4 mg Q6H PRN IV NAUSEA/VOMITING; Start 10/20/18 at 00:30 Acetaminophen (Tylenol Tab) 650 mg Q6H PRN PO .PAIN 1-3 OR TEMP; Start 10/20/18 at 00:30 Acetaminophen/ Hydrocodone Bitart ([place] (5/325)) 1 tab Q6H PRN PO .PAIN 4-6; Start 10/20/18 at 00:30 Heparin Sodium (Porcine) (Heparin (5000 Units/1ml)) 5,000 unit Q12 SC Last administered on 10/21/18 09:45; Admin Dose 5,000 UNIT; Start 10/20/18 at 09:00 Albuterol/ Ipratropium (Duoneb) 3 ml Q2H RESP THERAPY PRN HHN SHORTNESS OF BREATH; Start 10/20/18 at 00:30 Alprazolam (Xanax) 2 mg TID PO Last administered on 10/21/18 13:18; Admin Dose 2 MG; Start 10/20/18 at 09:00 Aripiprazole (Abilify) 10 mg DAILY PO Last administered on 10/21/18 09:37; Admin Dose 10 MG; Start 10/20/18 at 09:00 Aspirin (Aspirin) 81 mg DAILY PO Last administered on 10/21/18 09:37; Admin Dose 81 MG; Start 10/20/18 at 09:00 Ferrous Sulfate (Ferrous Sulfate (Ec)) 325 mg BID PO Last administered on 10/21/18 09:37; Admin Dose 325 MG; Start 10/20/18 at 09:00 Itraconazole (Sporanox) 200 mg BID PO Last administered on 10/21/18 09:38; Admin Dose 200 MG; Start 10/20/18 at 09:00 Losartan Potassium (Cozaar) 25 mg BID PO Last administered on 10/21/18 09:37; Admin Dose 25 MG; Start 10/20/18 at 09:00 Pentoxifylline (Trental) 400 mg TID PO Last administered on 10/21/18 13:17; Admin Dose 400 MG; Start 10/20/18 at 09:00 Vancomycin HCl (Vanco Iv Per Pharmacy) VANCOMYCIN PER PHARMACY PER PROTOCOL XX ; Start 10/20/18 at 09:00 Atorvastatin Calcium (Lipitor) 10 mg DAILY@21 PO Last administered on 10/20/18at 21:20; Admin Dose 10 MG; Start 10/20/18 at 21:00 Miscellaneous Information (Pending [facility] Order For Wound Care) This patient ricardo... PRN PRN XX WOUND CARE; Start 10/20/18 at 03:30 Vancomycin HCl 1.75 gm/Sodium Chloride 500 ml @ 125 mls/hr Q12H IVPB Last administered on 10/21/18 05:29; Admin Dose 125 MLS/HR; Start 10/20/18 at 18:00 Levofloxacin/ Dextrose 150 ml @ 100 mls/hr Q24H IVPB Last administered on 10/20/18at 15:55; Admin Dose 100 MLS/HR; Start 10/20/18 at 15:30 SEAN YANEZ NP October 21, 2018 15:10
[2018-10-21] MEDS: LEVOFLOXACIN 750MG/D5W (PMX) 150 ML IVPB SCH (15:32)
[2018-10-21] MEDS: ATORVASTATIN 10 MG TAB PO SCH (21:48)
[2018-10-22] VITALS (19 sets, daily range): BP systolic 107–155; BP diastolic 56–79; PULSE 46–63; RESP 10–21
[2018-10-22] MEDS: VANCOMYCIN HCL 1.75 GM in SOD CHLORIDE 0.9% 500 ML IVPB SCH ×2 (05:44→17:25)
[2018-10-22] MEDS ORDERED: POLYMYXIN B 500000 UNIT INJ ONE ×2 (10:11→10:54)
[2018-10-22] MEDS ORDERED: POLYMYXIN/BACITRACIN 1L IRRIG ONE (10:11)
[2018-10-22] MEDS ORDERED: SEVOFLURANE 15 MIN ONE (10:30)
--- NOTE | 2018-10-22 10:32 | HPN ---
Date/Time of Note Date/Time of Note DATE: 10/22/18 TIME: 10:32 Interval H&P Admission Note Pt. seen H&P reviewed: No system changes ROSEANNE BAIRD DPM October 22, 2018 10:32
[2018-10-22] MEDS ORDERED: BACITRACIN 50000 UNITS INJ ONE ×2 (10:38→12:23)
[2018-10-22] MEDS ORDERED: FENTAnyl 50 MCG/ML VIAL ONE (10:41)
[2018-10-22] MEDS ORDERED: LIDOCAINE 2% (SDV) 5 ML INJ ONE (10:41)
[2018-10-22] MEDS ORDERED: PROPOFOL 20 ML ONE (10:41)
[2018-10-22] MEDS ORDERED: ONDANSETRON 4 MG INJ ONE (10:44)
[2018-10-22] MEDS ORDERED: GLYCOPYRROLATE 0.4 MG INJ ONE (10:51)
[2018-10-22] MEDS ORDERED: DEXAMETHASONE 4 MG/ML 5 ML INJ ONE (10:56)
[2018-10-22] MEDS ORDERED: FAMOTIDINE 20 MG INJ ONE (10:56)
[2018-10-22] MEDS ORDERED: EPHEDrine 25 MG/5 ML SYG ONE (11:11)
--- NOTE | 2018-10-22 11:27 | PREAC ---
Date/Time of Note Date/Time of Note DATE: 10/22/18 TIME: 10: Anesthesia Eval and Record Evaluation Time Pre-Procedure Interview DATE: 10/22/18 TIME: 10:26 Age 58 Sex male NPO: 8 hrs Preoperative diagnosis chronic venous hypertension with ulceration bilateral lower extremity Planned procedure bilateral lower extremity wound debridement application of wound vac Past Medical History Past Medical History: Includes Cardio: HTN Pulm: COPD GI: Obesity (uses wheelchair) Psych: Depression, Anxiety Recreational drugs: Other (chronic norco use - was on methadone 3 weeks ago) Surgery & Anesthesia Issues No known issue Meds Anticoagulation: No Beta Richard within 24 hr: No Reason Beta Richard not given: Pt. not on B-Richard Active Scripts Ferrous Sulfate* (Ferrous Sulfate*) 325 Mg Tabec, 325 MG PO BID, #60 TAB Prov:JIMENEZJORGEA V[employer] 08/25/18 Clindamycin Hcl* (Clindamycin Hcl*) 300 Mg Capsule, 300 MG PO QID, #56 CAP Prov:JIMENEZ,DANIELLE V[employer] 08/24/18 Aspirin (Aspirin) 81 Mg Chew, 81 MG PO DAILY, #30 TAB Prov:JIMENEZ,DANIELLE [employer] 08/24/18 Pentoxifylline* (Pentoxifylline*) 400 Mg Tablet.sa, 400 MG PO TID, #90 TAB Prov:JIMENEZDANIELLE V. [employer]GEANT 08/24/18 Itraconazole* (Itraconazole*) 100 Mg Capsule, 200 MG PO BID, #30 CAP Prov:JIMENEZ,DANIELLE V[employer] 08/24/18 Ciprofloxacin Hcl* (Ciprofloxacin Hcl*) 500 Mg Tablet, 500 MG PO BID@18, #30 TAB Prov:JIMENEZDANIELLE V. [employer]GEANT 08/24/18 Reported Medications Hydrocodone/Acetaminophen ([place] 10-325 Tablet) 1 Each Tablet, 1 EACH PO Q6 PRN for PAIN LEVEL 6-10, TAB 10/20/18 Aripiprazole* (Abilify*) 10 Mg Tablet, 10 MG PO DAILY, #30 TAB 08/18/18 Alprazolam* (Xanax*) 2 Mg Tablet, 2 MG PO TID, TAB 08/18/18 Losartan Potassium* (Cozaar*) 25 Mg Tablet, 25 MG PO BID, #60 TAB 08/18/18 Lovastatin (Lovastatin) 40 Mg Tablet, 30 MG PO HS, TAB 08/18/18 Current Medications IV Flush (NS 3 ml) 3 ml PER PROTOCOL IV ; Start 10/20/18 at 00:30 Ondansetron HCl (Zofran Inj) 4 mg Q6H PRN IV NAUSEA/VOMITING; Start 10/20/18 at 00:30 Acetaminophen (Tylenol Tab) 650 mg Q6H PRN PO .PAIN 1-3 OR TEMP; Start 10/20/18 at 00:30 Acetaminophen/ Hydrocodone Bitart ([place] (5/325)) 1 tab Q6H PRN PO .PAIN 4-6; Start 10/20/18 at 00:30 Heparin Sodium (Porcine) (Heparin (5000 Units/1ml)) 5,000 unit Q12 SC Last administered on 10/21/18 21:56; Admin Dose 5,000 UNIT; Start 10/20/18 at 09:00 Albuterol/ Ipratropium (Duoneb) 3 ml Q2H RESP THERAPY PRN HHN SHORTNESS OF BREATH; Start 10/20/18 at 00:30 Alprazolam (Xanax) 2 mg TID PO Last administered on 10/21/18 21:48; Admin Dose 2 MG; Start 10/20/18 at 09:00 Aripiprazole (Abilify) 10 mg DAILY PO Last administered on 10/21/18 09:37; Admin Dose 10 MG; Start 10/20/18 at 09:00 Aspirin (Aspirin) 81 mg DAILY PO Last administered on 10/21/18 09:37; Admin Dose 81 MG; Start 10/20/18 at 09:00 Ferrous Sulfate (Ferrous Sulfate (Ec)) 325 mg BID PO Last administered on 10/21/18 21:48; Admin Dose 325 MG; Start 10/20/18 at 09:00 Itraconazole (Sporanox) 200 mg BID PO Last administered on 10/21/18 21:48; Admin Dose 200 MG; Start 10/20/18 at 09:00 Losartan Potassium (Cozaar) 25 mg BID PO Last administered on 10/21/18 09:37; Admin Dose 25 MG; Start 10/20/18 at 09:00 Pentoxifylline (Trental) 400 mg TID PO Last administered on 5/13/19at 21:48; Admin Dose 400 MG; Start 10/20/18 at 09:00 Vancomycin HCl (Vanco Iv Per Pharmacy) VANCOMYCIN PER PHARMACY PER PROTOCOL XX ; Start 10/20/18 at 09:00 Atorvastatin Calcium (Lipitor) 10 mg DAILY@21 PO Last administered on 10/21/18at 21:48; Admin Dose 10 MG; Start 10/20/18 at 21:00 Miscellaneous [facility] This patient ricardo... PRN PRN XX WOUND CARE; Start 10/20/18 at 03:30 Vancomycin HCl 1.75 gm/Sodium Chloride 500 ml @ 125 mls/hr Q12H IVPB Last administered on 10/22/18at 05:44; Admin Dose 125 MLS/HR; Start 10/20/18 at 18:00 Levofloxacin/ Dextrose 150 ml @ 100 mls/hr Q24H IVPB Last administered on 10/21/18at 15:32; Admin Dose 100 MLS/HR; Start 10/20/18 at 15:30 Meds reviewed: Yes Allergies Coded Allergies: piperacillin (Verified Allergy, Severe, 10/19/18) tazobactam (Verified Allergy, Severe, 10/19/18) Phenothiazines (Verified Allergy, Intermediate, 08/18/18) prochlorperazine (Verified Allergy, Intermediate, 08/18/18) Allergies Reviewed: Yes Labs/Studies Labs Reviewed: Reviewed by anesthesiologist Result Diagram: 10/22/18 0636 10/22/18 0636 Laboratory Tests 10/22/18 06:36 test: N/A Studies: ECG Pre-procedure Exam Last vitals Vital Signs Date Temp Pulse Resp B/P (MAP) Pulse Ox O2 O2 Flow FiO2 Time Delivery Rate 10/22/18 50 08:01 10/22/18 98.6 18 118/63 95 Room Air 07:39 (81) 10/21/18 2.0 20:12 Airway: Adequate mouth opening, Adequate thyromental dist Mallampati: Mallampati II Teeth: Normal Lung: Normal Heart: Normal ASA Physical Status ASA physical status: 3 Emergency: None Planned Anesthetic General/MAC: LMA Planned Pain Management Parenteral pain med Pre-operative Attestations Prior to commencing anesthesia and surgery, the patient was re-evaluated, there was verification of: *The patient's identity *The results of appropriate recent lab work and preoperative vital signs *The above evaluation not changing prior to induction *Anesthetic plan, risk benefits, alternative and complications discussed with patient/family; questions answered; patient/family understands, accepts and wishes to proceed. ARTURO POOL COLOR CHECKER October 22, 2018 11:27
--- NOTE | 2018-10-22 11:52 | SIPON ---
Date/Time of Note Date/Time of Note DATE: 10/22/18 TIME: 11:52 Operative Report Preoperative Diagnosis Bilateral lower extremity cellulitis Chronic venous hypertension with ulceration b/l lower extremity Lymphedema Pain in limb Venous insufficiency Postoperative Diagnosis Bilateral lower extremity cellulitis Chronic venous hypertension with ulceration b/l lower extremity Lymphedema Pain in limb Venous insufficiency Operation/Procedure Performed excisional debridement b/l lower extremity application of wound VAC bilateral lower extremity Surgeon see signature line employee relations assistant none Anesthesia: general Estimated blood loss: 10 - 50 ml's Transfusion Required none Specimen b/l lower extremity wound culture b/l lower extremity wound pathology Grafts/Implants none Complications none ROSEANNE BAIRD DPM October 22, 2018 11:52
--- NOTE | 2018-10-22 11:53 | OPR ---
Date/Time of Note Date/Time of Note DATE: 10/22/18 TIME: 11:53 Operative Report Preoperative Diagnosis Bilateral lower extremity cellulitis Chronic venous hypertension with ulceration b/l lower extremity Lymphedema Pain in limb Venous insufficiency Postoperative Diagnosis Bilateral lower extremity cellulitis Chronic venous hypertension with ulceration b/l lower extremity Lymphedema Pain in limb Venous insufficiency Operation/Procedure Performed excisional debridement b/l lower extremity application of wound VAC bilateral lower extremity B/l wound tissue biopsy Surgeon see signature line Business Services Associate none Anesthesia Type: general Estimated Blood Loss: 10 - 50 ml's Transfusion none Specimen b/l lower extremity wound culture b/l lower extremity wound pathology Grafts/Implants none Complications none Indications 58 y/o M patient with chronic venous ulcers of bilateral lower extremities and developed concerns for cellulitis. Patient is amenable to surgical debridement and wound VAC application. Addressed all of the patient's questions and concerns. No promises or guarantees were given. Procedure Description Patient was brought into the OR and placed on the OR table in the supine position. Bilateral lower extremities were scrubbed, prepped, and draped in the usual aseptic manner. A formal time out was conducted. Attention was directed to the left lower extremity anterior leg ulcer site. Excisional debridement of skin/subQ using a curette was performed. Biofilm, fibrotic and hyperkeratotic tissue was removed from the wound bed. The ulcer measured 14 x 10.5 x 0.2cm which was fibrogranular in nature, no purulence was appreciated, no proximal streaking, no probing to bone. 147cm2 of area was debrided. Copious pulse lavage irrigation was used, chlorohexidine scrub brushes were used to cleanse the area. Wound culture was obtained from the left lower extremity. Using sharp dissection a biopsy of the left lower extremity wound was obtained and sent for pathology studies Next, attention was directed to the right lower extremity leg ulcer site. Excisional debridement of skin/subQ using a curette was performed. Biofilm, fibrotic and hyperkeratotic tissue was removed from the wound bed. The ulcer measured 15 x 14 x 0.2cm which was granular in nature, no purulence was appreciated, no proximal streaking, no probing to bone. 210cm2 of area was debrided. Copious pulse lavage irrigation was used, chlorohexidine scrub brushes were used to cleanse the area. Wound culture was obtained from the right lower extremity. Using sharp dissection a biopsy of the right lower extremity wound was obtained and sent for pathology studies. There was also a proximal right leg ulcer and excisional debridement of skin/subQ using a curette was performed. Biofilm and hyperkeratotic tissue was removed from the wound bed. The ulcer measured 2 x 2 x 0.2cm which was granular in nature, no purulence was appreciated, no proximal streaking, no probing to bone. 4cm2 of area was debrided. Copious pulse lavage irrigation was used, chlorohexidine scrub brushes were used to cleanse the area. Xeroform and 4x4 gauze was applied for dressings to the ulcer site Total area of debridement: 361cm2 A wound VAC was applied to bilateral lower extremity leg ulcer sites using black foam and settings at 125mmHg low continuous therapy. A successful seal was obtained. Dry sterile compression dressings were applied to bilateral lower extremities Patient was transferred to PACU with vital signs stable and neurovascular status intact. ROSEANNE BAIRD DPM October 22, 2018 11:53
[2018-10-22] MEDS ORDERED: MIDAZOLAM 1 MG/ML 2 ML INJ IV PRN (12:00)
[2018-10-22] MEDS ORDERED: OXYCODONE/ACETAMINOPHEN (5/325) TAB PO PRN ×2 (12:00)
[2018-10-22] MEDS ORDERED: LORAZEPAM 2 MG INJ IV PRN (12:00)
[2018-10-22] MEDS ORDERED: HYDROmorphONE 1 MG/5 ML IV SYRINGE IV PRN ×3 (12:00)
[2018-10-22] MEDS ORDERED: hydrALAzine 20 MG INJ IV PRN (12:00)
[2018-10-22] MEDS ORDERED: MEPERIDINE 25 MG INJ IV PRN (12:00)
[2018-10-22] MEDS ORDERED: LABETALOL HCL 20MG INJ IV PRN (12:00)
[2018-10-22] MEDS ORDERED: FENTAnyl 50 MCG/ML VIAL IV PRN (12:00)
[2018-10-22] MEDS ORDERED: ONDANSETRON 4 MG INJ IV PRN (12:00)
[2018-10-22] MEDS ORDERED: KETOROLAC 30 MG INJ IV PRN (12:00)
--- NOTE | 2018-10-22 12:09 | PAC ---
Date/Time of Note Date/Time of Note DATE: 10/22/18 TIME: 12:08 Post-Anesthesia Notes Post-Anesthesia Note Last documented vital signs Vital Signs Date Temp Pulse Resp B/P (MAP) Pulse Ox O2 O2 Flow FiO2 Time Delivery Rate 10/22/18 50 08:01 10/22/18 98.6 18 118/63 95 Room Air 07:39 (81) 10/21/18 2.0 20:12 Activity: WNL Respiratory function: WNL Cardiovascular function: WNL Mental status: Baseline Pain reasonably controlled: Yes Hydration appropriate: Yes Nausea/Vomiting absent: Yes Comments BP 133/62 Sp02 98% HR 57 RR 12 T 98.3F ARTURO POOL CRNA October 22, 2018 12:09
[2018-10-22] MEDS: FENTAnyl 50 MCG/ML VIAL IV PRN ×2 (12:16→12:26)
[2018-10-22] MEDS: LACTATED RINGER'S 1,000 ML IV SCH (12:38)
[2018-10-22] MEDS: PENTOXIFYLLINE (SR) 400 MG TAB PO SCH ×3 (13:00→20:11)
[2018-10-22] MEDS: ASPIRIN 81 MG TAB PO SCH (13:14)
[2018-10-22] MEDS: ITRACONAZOLE 100 MG CAP PO SCH ×2 (13:14→20:11)
[2018-10-22] MEDS: ARIPIPRAZOLE 10 MG TAB PO SCH (13:15)
[2018-10-22] MEDS: LOSARTAN 25 MG TAB PO SCH ×2 (13:15→21:00)
[2018-10-22] MEDS: FERROUS SULFATE (EC) 325 MG TAB PO SCH ×2 (13:15→21:00)
[2018-10-22] MEDS: ALPRAZOLAM 1 MG TAB PO SCH ×2 (13:22→20:11)
[2018-10-22] MEDS: HEPARIN 5,000 UNIT/1 ML VIAL SC SCH ×2 (13:56→20:21)
--- NOTE | 2018-10-22 15:19 | CONS ---
Assessment/Plan Assessment/Plan Hospital Course (Demo Recall) No acute events overnight Microbiology: Blood cultures negative MRSA swab negative wound culture + GNR/Strep/Staph Allergies: Zosyn that cause anaphylaxis Antimicrobials: Vanco Levaquin Physical examination: Obese well-developed middle-aged man who is in no distress. Head atraumatic normocephalic neck is supple chest rise symmetrical breath sounds diminished bases heart S1-S2 abdomen soft bowel sounds present extremities: Bilateral lower extremities Miguel Angel wrap Assessment: 1. Bilateral lower extremities acute on chronic cellulitis 2. Morbid obesity 3. History of DVT 4. Hypertension Plan: Patient remains stable, podiatry on case s/p i/d, continue antibiotics and await for wound culture Consultation Date/Type/Reason Admit Date/Time October 19, 2018 at 20:49 Initial Consult Date Type of Consult id Date/Time of Note DATE: 10/22/18 TIME: 15:18 Exam/Review of Systems Exam Vitals Vital Signs Date Temp Pulse Resp B/P (MAP) Pulse Ox O2 O2 Flow FiO2 Time Delivery Rate 10/22/18 48 13 130/74 98 Nasal 2.0 12:59 (92) Cannula 10/22/18 98.3 12:36 Intake and Output 10/21/18 10/21/18 10/22/18 1515:00 23:00 07:00 IntakeIntake Total 500 ml 150 ml 480 ml BalanceBalance 500 ml 150 ml 480 ml Results Result Diagram: 10/22/18 0636 10/22/18 0636 Results 24hrs Laboratory Tests Test 10/21/18 15:28 10/22/18 06:36 Erythrocyte Sedimentation Rate 25 H C-Reactive Protein 3.9 H Procalcitonin 0.06 Vancomycin Level Trough 16.6 White Blood Count 10.0 Red Blood Count 4.62 L Hemoglobin 11.4 L Hematocrit 38.5 L Mean Corpuscular Volume 83.3 Mean Corpuscular Hemoglobin 24.7 L Mean Corpuscular Hemoglobin Concent 29.6 L Red Cell Distribution Width 16.9 H Platelet Count 240 # Mean Platelet Volume 9.7 Immature Granulocytes % 0.800 H Neutrophils % 68.1 Lymphocytes % 23.9 Monocytes % 5.7 Eosinophils % 0.8 Basophils % 0.7 Nucleated Red Blood Cells % 0.0 Immature Granulocytes # 0.080 H Neutrophils # 6.8 Lymphocytes # 2.4 Monocytes # 0.6 Eosinophils # 0.1 Basophils # 0.1 Nucleated Red Blood Cells # 0.0 Sodium Level 141 Potassium Level 4.7 Chloride Level 106 Carbon Dioxide Level 27 Anion Gap 8 Blood Urea Nitrogen 24 H Creatinine 1.00 Est Glomerular Filtrat Rate mL/min > 60 Glucose Level 111 Calcium Level 8.6 Phosphorus Level 4.6 Magnesium Level 1.8 Medications Medication Current Medications IV Flush (NS 3 ml) 3 ml PER PROTOCOL IV ; Start 10/20/18 at 00:30 Ondansetron HCl (Zofran Inj) 4 mg Q6H PRN IV NAUSEA/VOMITING; Start 10/20/18 at 00:30 Acetaminophen (Tylenol Tab) 650 mg Q6H PRN PO .PAIN 1-3 OR TEMP; Start 10/20/18 at 00:30 Acetaminophen/ Hydrocodone Bitart ([place] (5/325)) 1 tab Q6H PRN PO .PAIN 4-6; Start 10/20/18 at 00:30 Heparin Sodium (Porcine) (Heparin (5000 Units/1ml)) 5,000 unit Q12 SC Last administered on 10/22/18at 13:56; Admin Dose 5,000 UNIT; Start 10/20/18 at 09:00 Albuterol/ Ipratropium (Duoneb) 3 ml Q2H RESP THERAPY PRN HHN SHORTNESS OF BREATH; Start 10/20/18 at 00:30 Alprazolam (Xanax) 2 mg TID PO Last administered on 10/22/18 13:22; Admin Dose 2 MG; Start 10/20/18 at 09:00 Aripiprazole (Abilify) 10 mg DAILY PO Last administered on 10/22/18 13:15; Admin Dose 10 MG; Start 10/20/18 at 09:00 Aspirin (Aspirin) 81 mg DAILY PO Last administered on 10/22/18 13:14; Admin Dose 81 MG; Start 10/20/18 at 09:00 Ferrous Sulfate (Ferrous Sulfate (Ec)) 325 mg BID PO Last administered on 10/22/18 13:15; Admin Dose 325 MG; Start 10/20/18 at 09:00 Itraconazole (Sporanox) 200 mg BID PO Last administered on 10/22/18 13:14; Admin Dose 200 MG; Start 10/20/18 at 09:00 Losartan Potassium (Cozaar) 25 mg BID PO Last administered on 10/22/18at 13:15; Admin Dose 25 MG; Start 10/20/18 at 09:00 Pentoxifylline (Trental) 400 mg TID PO Last administered on 10/22/18at 13:15; Admin Dose 400 MG; Start 10/20/18 at 09:00 Vancomycin HCl (Vanco Iv Per Pharmacy) VANCOMYCIN PER PHARMACY PER PROTOCOL XX ; Start 10/20/18 at 09:00 Atorvastatin Calcium (Lipitor) 10 mg DAILY@21 PO Last administered on 10/21/18at 21:48; Admin Dose 10 MG; Start 10/20/18 at 21:00 Miscellaneous Information (Pending Santyl Order For Wound Care) This patient ricardo... PRN PRN XX WOUND CARE; Start 10/20/18 at 03:30 Vancomycin HCl 1.75 gm/Sodium Chloride 500 ml @ 125 mls/hr Q12H IVPB Last administered on 10/22/18at 05:44; Admin Dose 125 MLS/HR; Start 10/20/18 at 18:00 Levofloxacin/ Dextrose 150 ml @ 100 mls/hr Q24H IVPB Last administered on 10/21/18at 15:32; Admin Dose 100 MLS/HR; Start 10/20/18 at 15:30 Hydromorphone HCl (Dilaudid) 0.2 mg PACU PRN IV MILD PAIN 1-3; Start 10/22/18 at 12:00; Stop 10/22/18 at 17:00 Hydromorphone HCl (Dilaudid) 0.4 mg PACU PRN IV MOD PAIN 4-6 Last administered on 10/22/18at 12:43; Admin Dose 0.4 MG; Start 10/22/18 at 12:00; Stop 10/22/18 at 17:00 Hydromorphone HCl (Dilaudid) 0.6 mg PACU PRN IV SEVERE PAIN 7-10 Last administered on 10/22/18at 12:37; Admin Dose 0.6 MG; Start 10/22/18 at 12:00; Stop 10/22/18 at 17:00 Fentanyl (Sublimaze) 25 mcg PACU ORDER PRN IV MILD PAIN 1-3; Start 10/22/18 at 12:00; Stop 10/22/18 at 17:00 Fentanyl (Sublimaze) 50 mcg PACU ORDER PRN IV MOD PAIN 4-6 Last administered on 10/22/18at 12:26; Admin Dose 50 MCG; Start 10/22/18 at 12:00; Stop 10/22/18 at 17:00 Ketorolac Tromethamine (Toradol) 30 mg PACU ORDER PRN IV FOR PAIN AFTER IV NARCOTIC MED; Start 10/22/18 at 12:00; Stop 10/22/18 at 17:00 Oxycodone/ Acetaminophen (Percocet (5/ 325)) 1 tab PACU ORDER PRN PO .PAIN 1-5; Start 10/22/18 at 12:00; Stop 10/22/18 at 17:00 Oxycodone/ Acetaminophen (Percocet (5/ 325)) 2 tab PACU ORDER PRN PO .PAIN 6-10; Start 10/22/18 at 12:00; Stop 10/22/18 at 17:00 Ondansetron HCl (Zofran Inj) 4 mg PACU ORDER PRN IV NAUSEA/VOMITING Last administered on 10/22/18at 12:17; Admin Dose 4 MG; Start 10/22/18 at 12:00; Stop 10/22/18 at 17:00 Labetalol HCl (Labetalol) 5 mg PACU ORDER PRN IV HIGH BLOOD PRESSURE; Start 10/22/18 at 12:00; Stop 10/22/18 at 17:00 Hydralazine HCl (Apresoline) 5 mg PACU ORDER PRN IV HIGH BLOOD PRESSURE; Start 10/22/18 at 12:00; Stop 10/22/18 at 17:00 Meperidine HCl (Demerol) 25 mg PACU ORDER PRN IV .RIGORS; Start 10/22/18 at 12:00; Stop 10/22/18 at 17:00 Lorazepam (Ativan) 1 mg PACU ORDER PRN IV .ANXIETY; Start 10/22/18 at 12:00; Stop 10/22/18 at 17:00 Midazolam HCl (Versed) 0.5 mg PACU ORDER PRN IV .ANXIETY; Start 10/22/18 at 12:00; Stop 10/22/18 at 17:00 Lactated Ringer's 1,000 ml @ 60 mls/hr [id number] IV Last administered on 10/22/18at 12:38; Admin Dose 60 MLS/HR; Start 10/22/18 at 12:30 Miscellaneous Information (*Rx Drug Level Order Reminder*) VANCO TROUGH ON 10/09... 1700 ONCE XX ; Start 10/23/18 at 17:00; Stop 10/23/18 at 17:01 SEAN YANEZ NP October 22, 2018 15:19
[2018-10-22] MEDS: LEVOFLOXACIN 750MG/D5W (PMX) 150 ML IVPB SCH (15:26)
[2018-10-22] MEDS: ATORVASTATIN 10 MG TAB PO SCH (20:10)
[2018-10-22] MEDS: HYDROmorphONE 1 MG/ML SYG IV PRN (20:11)
--- NOTE | 2018-10-22 21:47 | PN ---
Date/Time of Note Date/Time of Note DATE: 10/22/18 TIME: 21:41 Assessment/Plan VTE Prophylaxis Risk score (from Ns)>0 risk: 3 SCD applied (from [facility] [place]): Yes Pharmacological prophylaxis: heparin Lines/Catheters IV Catheter Type (from [facility]): Mid Line Assessment/Plan Hospital Course subjective: Patient was sleeping but arousable Objective : Constitutional: Comfortable, no distress Respiratory: clear to auscultation Cardiovascular: regular rate and rhythm Gastrointestinal: soft; No distended assessment and plan: 1. Purulent left leg infection: Patient with history of bilateral lower extremity wound status post excisional debridement with a wound VAC 2 months ago -Patient was sent by his office machine inspector, Dr. Del Valle -Last culture from wound showed staph, Corynebacterium and Pseudomonas -Continue vancomycin, further antibiotics per ID -10/22/18: excisional debridement b/l lower extremity / application of wound VAC bilateral lower extremity / B/l wound tissue biopsy 2. Hypertension: Adjust BP meds as needed 3. History of DVT status post IVC filter 4. Iron deficiency anemia: Continue ferrous sulfate 5. Depression/anxiety: Continue home med 6. Bilateral lower extremity cellulitis 7. Chronic venous hypertension with ulceration b/l lower extremity 8. Lymphedema 9. Venous insufficiency Disposition: -Continue antibiotics, follow-up intraoperative cultures, continue routine postop care. Prophylaxis: Heparin Result Diagram: 10/22/18 0636 10/22/18 0636 Results 24hrs Laboratory Tests Test 10/22/18 06:36 White Blood Count 10.0 Red Blood Count 4.62 L Hemoglobin 11.4 L Hematocrit 38.5 L Mean Corpuscular Volume 83.3 Mean Corpuscular Hemoglobin 24.7 L Mean Corpuscular Hemoglobin Concent 29.6 L Red Cell Distribution Width 16.9 H Platelet Count 240 # Mean Platelet Volume 9.7 Immature Granulocytes % 0.800 H Neutrophils % 68.1 Lymphocytes % 23.9 Monocytes % 5.7 Eosinophils % 0.8 Basophils % 0.7 Nucleated Red Blood Cells % 0.0 Immature Granulocytes # 0.080 H Neutrophils # 6.8 Lymphocytes # 2.4 Monocytes # 0.6 Eosinophils # 0.1 Basophils # 0.1 Nucleated Red Blood Cells # 0.0 Sodium Level 141 Potassium Level 4.7 Chloride Level 106 Carbon Dioxide Level 27 Anion Gap 8 Blood Urea Nitrogen 24 H Creatinine 1.00 Est Glomerular Filtrat Rate mL/min > 60 Glucose Level 111 Calcium Level 8.6 Phosphorus Level 4.6 Magnesium Level 1.8 Exam/Review of Systems Exam Vitals Vital Signs Date Temp Pulse Resp B/P (MAP) Pulse Ox O2 O2 Flow FiO2 Time Delivery Rate 10/22/18 63 20:06 10/22/18 98.4 18 155/79 96 20:00 (104) 10/22/18 Room Air 15:56 10/22/18 2.0 12:59 Intake and Output 10/21/18 10/21/18 10/22/18 1515:00 23:00 07:00 IntakeIntake Total 500 ml 150 ml 480 ml BalanceBalance 500 ml 150 ml 480 ml Results Results 24hrs Laboratory Tests Test 10/22/18 06:36 White Blood Count 10.0 Red Blood Count 4.62 L Hemoglobin 11.4 L Hematocrit 38.5 L Mean Corpuscular Volume 83.3 Mean Corpuscular Hemoglobin 24.7 L Mean Corpuscular Hemoglobin Concent 29.6 L Red Cell Distribution Width 16.9 H Platelet Count 240 # Mean Platelet Volume 9.7 Immature Granulocytes % 0.800 H Neutrophils % 68.1 Lymphocytes % 23.9 Monocytes % 5.7 Eosinophils % 0.8 Basophils % 0.7 Nucleated Red Blood Cells % 0.0 Immature Granulocytes # 0.080 H Neutrophils # 6.8 Lymphocytes # 2.4 Monocytes # 0.6 Eosinophils # 0.1 Basophils # 0.1 Nucleated Red Blood Cells # 0.0 Sodium Level 141 Potassium Level 4.7 Chloride Level 106 Carbon Dioxide Level 27 Anion Gap 8 Blood Urea Nitrogen 24 H Creatinine 1.00 Est Glomerular Filtrat Rate mL/min > 60 Glucose Level 111 Calcium Level 8.6 Phosphorus Level 4.6 Magnesium Level 1.8 Medications Medication Current Medications IV Flush (NS 3 ml) 3 ml PER PROTOCOL IV ; Start 10/20/18 at 00:30 Ondansetron HCl (Zofran Inj) 4 mg Q6H PRN IV NAUSEA/VOMITING; Start 10/20/18 at 00:30 Acetaminophen (Tylenol Tab) 650 mg Q6H PRN PO .PAIN 1-3 OR TEMP; Start 10/20/18 at 00:30 Acetaminophen/ Hydrocodone Bitart ([place] (5/325)) 1 tab Q6H PRN PO .PAIN 4-6; Start 10/20/18 at 00:30 Heparin Sodium (Porcine) (Heparin (5000 Units/1ml)) 5,000 unit Q12 SC Last administered on 10/22/18 20:21; Admin Dose 5,000 UNIT; Start 10/20/18 at 09:00 Albuterol/ Ipratropium (Duoneb) 3 ml Q2H RESP THERAPY PRN HHN SHORTNESS OF BREATH; Start 10/20/18 at 00:30 Alprazolam (Xanax) 2 mg TID PO Last administered on 10/22/18 20:11; Admin Dose 2 MG; Start 10/20/18 at 09:00 Aripiprazole (Abilify) 10 mg DAILY PO Last administered on 10/22/18 13:15; Admin Dose 10 MG; Start 10/20/18 at 09:00 Aspirin (Aspirin) 81 mg DAILY PO Last administered on 10/22/18 13:14; Admin Dose 81 MG; Start 10/20/18 at 09:00 Ferrous Sulfate (Ferrous Sulfate (Ec)) 325 mg BID PO Last administered on 10/22/18 13:15; Admin Dose 325 MG; Start 10/20/18 at 09:00 Itraconazole (Sporanox) 200 mg BID PO Last administered on 10/22/18 20:11; Admin Dose 200 MG; Start 10/20/18 at 09:00 Losartan Potassium (Cozaar) 25 mg BID PO Last administered on 10/22/18 13:15; Admin Dose 25 MG; Start 10/20/18 at 09:00 Pentoxifylline (Trental) 400 mg TID PO Last administered on 10/22/18 20:11; Admin Dose 400 MG; Start 10/20/18 at 09:00 Vancomycin HCl (Vanco Iv Per Pharmacy) VANCOMYCIN PER PHARMACY PER PROTOCOL XX ; Start 10/20/18 at 09:00 Atorvastatin Calcium (Lipitor) 10 mg DAILY@21 PO Last administered on 10/22/18 20:10; Admin Dose 10 MG; Start 10/20/18 at 21:00 Miscellaneous Information (Pending Santyl Order For Wound Care) This patient ricardo... PRN PRN XX WOUND CARE; Start 10/20/18 at 03:30 Vancomycin HCl 1.75 gm/Sodium Chloride 500 ml @ 125 mls/hr Q12H IVPB Last administered on 10/22/18 17:25; Admin Dose 125 MLS/HR; Start 10/20/18 at 18:00 Levofloxacin/ Dextrose 150 ml @ 100 mls/hr Q24H IVPB Last administered on 10/22/18 15:26; Admin Dose 100 MLS/HR; Start 10/20/18 at 15:30 Lactated Ringer's 1,000 ml @ 60 mls/hr [id number] IV Last administered on 10/22/18 12:38; Admin Dose 60 MLS/HR; Start 10/22/18 at 12:30 Miscellaneous Information (*Rx Drug Level Order Reminder*) VANCO TROUGH ON 10/09... 1700 ONCE XX ; Start 10/23/18 at 17:00; Stop 10/23/18 at 17:01 Hydromorphone HCl (Dilaudid) 1 mg Q4H PRN IV SEVERE PAIN LEVEL 7-10 Last administered on 10/22/18at 20:11; Admin Dose 1 MG; Start 10/22/18 at 20:00 SHIVAM QUINTANILLA October 22, 2018 21:47
[2018-10-23] VITALS (12 sets, daily range): BP systolic 102–163; BP diastolic 59–79; PULSE 45–58; RESP 16–20
[2018-10-23] MEDS: HYDROmorphONE 1 MG/ML SYG IV PRN (00:22)
[2018-10-23] MEDS ORDERED: traZODone 50 MG TAB PO ONE (01:00)
[2018-10-23] MEDS: HYDROmorphONE 2 MG TAB PO PRN ×3 (04:50→13:46)
[2018-10-23] MEDS: LACTATED RINGER'S 1,000 ML IV SCH (05:10)
[2018-10-23] MEDS: VANCOMYCIN HCL 1.75 GM in SOD CHLORIDE 0.9% 500 ML IVPB SCH ×2 (06:14→18:00)
[2018-10-23] MEDS: ARIPIPRAZOLE 10 MG TAB PO SCH (08:58)
[2018-10-23] MEDS: ITRACONAZOLE 100 MG CAP PO SCH ×2 (08:58→21:42)
[2018-10-23] MEDS: LOSARTAN 25 MG TAB PO SCH ×2 (08:59→21:41)
[2018-10-23] MEDS: PENTOXIFYLLINE (SR) 400 MG TAB PO SCH ×3 (08:59→21:41)
[2018-10-23] MEDS: ASPIRIN 81 MG TAB PO SCH (08:59)
[2018-10-23] MEDS: ALPRAZOLAM 1 MG TAB PO SCH ×2 (08:59→12:22)
[2018-10-23] MEDS: FERROUS SULFATE (EC) 325 MG TAB PO SCH ×2 (08:59→21:41)
[2018-10-23] MEDS: HEPARIN 5,000 UNIT/1 ML VIAL SC SCH ×2 (09:08→21:56)
--- NOTE | 2018-10-23 14:08 | PN ---
Date/Time of Note Date/Time of Note DATE: 10/23/18 TIME: 14:07 Assessment/Plan VTE Prophylaxis Risk score (from Nsg)>0 risk: 1 SCD applied (from Ns): No SCD contraindicated: other Pharmacological prophylaxis: LMWH Lines/Catheters IV Catheter Type (from Nrsg): Mid Line Assessment/Plan Hospital Course subjective: Patient is requesting Dilaudid for pain, 1 specifically 4 mg every 4 hours. He is already been started on 3 mg every 4 but he once 4 mg even though he looks fa irly comfortable. I offered pain management consultation he does not want to wait, I also offered alternative pain medications as adjunct to what he is currently on, patient declined this offer stating he wants to leave the hospital. He said if I cannot give him Dilaudid I should give him methadone. I explained to him that I do not prescribe methadone and the pain management doctor will be able to help with that. He verbalized unhappiness with my care and the care of the hospital in total. I asked if there was anything else that made him unhappy other than the pain medication issue, he stated that that was enough to make him unhappy. All other alternatives that I offered patient declined. At this time patient tells me that he will probably leave the hospital AGAINST MEDICAL ADVICE This will: While awaiting objective : Constitutional: alert, oriented Respiratory: clear to auscultation Cardiovascular: regular rate and rhythm Gastrointestinal: soft; No distended assessment and plan: 1. Purulent left leg infection: Patient with history of bilateral lower extremity wound status post excisional debridement with a wound VAC 2 months ago -Patient was sent by his director of market analysis, Dr. Del Valle -Last culture from wound showed staph, Corynebacterium and Pseudomonas -Continue vancomycin, further antibiotics per ID -10/22/18: excisional debridement b/l lower extremity / application of wound VAC bilateral lower extremity / B/l wound tissue biopsy 2. Hypertension: Adjust BP meds as needed 3. History of DVT status post IVC filter 4. Iron deficiency anemia: Continue ferrous sulfate 5. Depression/anxiety: Continue home med 6. Bilateral lower extremity cellulitis 7. Chronic venous hypertension with ulceration b/l lower extremity 8. Lymphedema 9. Venous insufficiency Prophylaxis: Heparin Disposal: We are awaiting final culture results to arrange home IV antibiotics and wound VAC. Result Diagram: 10/23/18 1024 10/23/18 1024 Results 24hrs Laboratory Tests Test 10/23/18 10:24 White Blood Count 12.1 #H Red Blood Count 4.81 Hemoglobin 11.9 L Hematocrit 38.9 L Mean Corpuscular Volume 80.9 L Mean Corpuscular Hemoglobin 24.7 L Mean Corpuscular Hemoglobin Concent 30.6 L Red Cell Distribution Width 16.1 H Platelet Count 315 # Mean Platelet Volume 9.4 Immature Granulocytes % 1.100 H Neutrophils % 82.8 H Lymphocytes % 10.6 L Monocytes % 5.3 Eosinophils % 0.0 Basophils % 0.2 Nucleated Red Blood Cells % 0.0 Immature Granulocytes # 0.130 H Neutrophils # 10.0 H Lymphocytes # 1.3 Monocytes # 0.6 Eosinophils # 0.0 Basophils # 0.0 Nucleated Red Blood Cells # 0.0 Sodium Level 140 Potassium Level 4.2 Chloride Level 102 Carbon Dioxide Level 30 Anion Gap 8 Blood Urea Nitrogen 21 H Creatinine 1.10 Est Glomerular Filtrat Rate mL/min > 60 Glucose Level 129 Calcium Level 9.0 Exam/Review of Systems Exam Vitals Vital Signs Date Temp Pulse Resp B/P (MAP) Pulse Ox O2 O2 Flow FiO2 Time Delivery Rate 10/23/18 98.6 45 20 122/66 96 Room Air 11:05 (84) 10/23/18 2.0 08:15 Intake and Output 10/22/18 10/22/18 10/23/18 1515:00 23:00 07:00 IntakeIntake Total 400 ml 350 ml 100 ml OutputOutput Total 400 ml BalanceBalance 0 ml 350 ml 100 ml Results Results 24hrs Laboratory Tests Test 10/23/18 10:24 White Blood Count 12.1 #H Red Blood Count 4.81 Hemoglobin 11.9 L Hematocrit 38.9 L Mean Corpuscular Volume 80.9 L Mean Corpuscular Hemoglobin 24.7 L Mean Corpuscular Hemoglobin Concent 30.6 L Red Cell Distribution Width 16.1 H Platelet Count 315 # Mean Platelet Volume 9.4 Immature Granulocytes % 1.100 H Neutrophils % 82.8 H Lymphocytes % 10.6 L Monocytes % 5.3 Eosinophils % 0.0 Basophils % 0.2 Nucleated Red Blood Cells % 0.0 Immature Granulocytes # 0.130 H Neutrophils # 10.0 H Lymphocytes # 1.3 Monocytes # 0.6 Eosinophils # 0.0 Basophils # 0.0 Nucleated Red Blood Cells # 0.0 Sodium Level 140 Potassium Level 4.2 Chloride Level 102 Carbon Dioxide Level 30 Anion Gap 8 Blood Urea Nitrogen 21 H Creatinine 1.10 Est Glomerular Filtrat Rate mL/min > 60 Glucose Level 129 Calcium Level 9.0 Medications Medication Current Medications IV Flush (NS 3 ml) 3 ml PER PROTOCOL IV ; Start 10/20/18 at 00:30 Ondansetron HCl (Zofran Inj) 4 mg Q6H PRN IV NAUSEA/VOMITING; Start 10/20/18 at 00:30 Acetaminophen (Tylenol Tab) 650 mg Q6H PRN PO .PAIN 1-3 OR TEMP; Start 10/20/18 at 00:30 Heparin Sodium (Porcine) (Heparin (5000 Units/1ml)) 5,000 unit Q12 SC Last administered on 10/23/18 09:08; Admin Dose 5,000 UNIT; Start 10/20/18 at 09:00 Albuterol/ Ipratropium (Duoneb) 3 ml Q2H RESP THERAPY PRN HHN SHORTNESS OF BREATH; Start 10/20/18 at 00:30 Aripiprazole (Abilify) 10 mg DAILY PO Last administered on 10/23/18 08:58; Admin Dose 10 MG; Start 10/20/18 at 09:00 Aspirin (Aspirin) 81 mg DAILY PO Last administered on 10/23/18 08:59; Admin Dose 81 MG; Start 10/20/18 at 09:00 Ferrous Sulfate (Ferrous Sulfate (Ec)) 325 mg BID PO Last administered on 10/23/18 08:59; Admin Dose 325 MG; Start 10/20/18 at 09:00 Itraconazole (Sporanox) 200 mg BID PO Last administered on 10/23/18 08:58; Admin Dose 200 MG; Start 10/20/18 at 09:00 Losartan Potassium (Cozaar) 25 mg BID PO Last administered on 10/23/18 08:59; Admin Dose 25 MG; Start 10/20/18 at 09:00 Pentoxifylline (Trental) 400 mg TID PO Last administered on 10/23/18 12:22; Admin Dose 400 MG; Start 10/20/18 at 09:00 Vancomycin HCl (Vanco Iv Per Pharmacy) VANCOMYCIN PER PHARMACY PER PROTOCOL XX ; Start 10/20/18 at 09:00 Atorvastatin Calcium (Lipitor) 10 mg DAILY@21 PO Last administered on 10/22/18at 20:10; Admin Dose 10 MG; Start 10/20/18 at 21:00 Miscellaneous Information (Pending Santyl Order For Wound Care) This patient ricardo... PRN PRN XX WOUND CARE; Start 10/20/18 at 03:30 Vancomycin HCl 1.75 gm/Sodium Chloride 500 ml @ 125 mls/hr Q12H IVPB Last administered on 10/23/18at 06:14; Admin Dose 125 MLS/HR; Start 10/20/18 at 18:00 Levofloxacin/ Dextrose 150 ml @ 100 mls/hr Q24H IVPB Last administered on 10/22/18at 15:26; Admin Dose 100 MLS/HR; Start 10/20/18 at 15:30 Miscellaneous Information (*Rx Drug Level Order Reminder*) VANCO TROUGH ON 10/09... 1700 ONCE XX ; Start 10/23/18 at 17:00; Stop 10/23/18 at 17:01 SHIVAM QUINTANILLA October 23, 2018 14:08
--- NOTE | 2018-10-23 14:39 | CONS ---
Assessment/Plan Assessment/Plan Hospital Course (Demo Recall) No events overnight patient is alert looks comfortable per report wants to leave no fevers overnight Wound cultures grew Pseudomonas, MRSA Enterobacter and strep pyogenous Allergies: Zosyn ===> anaphylaxis Antimicrobials: Vanco Levaquin Physical examination: Obese well-developed middle-aged man who is in no distress. Head atraumatic normocephalic neck is supple chest rise symmetrical breath sounds diminished bases heart S1-S2 abdomen soft bowel sounds present extremities: Bilateral lower extremities Miguel Angel wrap Assessment: 1. Bilateral lower extremities acute on chronic cellulitis, status post debridement with wound VAC application 2. Morbid obesity 3. History of DVT 4. Hypertension Plan: Patient remains stable, continue antibiotics, wound VAC, follow podiatry recommendations Consultation Date/Type/Reason Admit Date/Time October 19, 2018 at 20:49 Initial Consult Date Type of Consult id Date/Time of Note DATE: 10/23/18 TIME: 14:38 Exam/Review of Systems Exam Vitals Vital Signs Date Temp Pulse Resp B/P (MAP) Pulse Ox O2 O2 Flow FiO2 Time Delivery Rate 10/23/18 46 14:08 10/23/18 98.6 20 122/66 96 Room Air 11:05 (84) 10/23/18 2.0 08:15 Intake and Output 10/22/18 10/22/18 10/23/18 1515:00 23:00 07:00 IntakeIntake Total 400 ml 350 ml 100 ml OutputOutput Total 400 ml BalanceBalance 0 ml 350 ml 100 ml Results Result Diagram: 10/23/18 1024 10/23/18 1024 Results 24hrs Laboratory Tests Test 10/23/18 10:24 White Blood Count 12.1 #H Red Blood Count 4.81 Hemoglobin 11.9 L Hematocrit 38.9 L Mean Corpuscular Volume 80.9 L Mean Corpuscular Hemoglobin 24.7 L Mean Corpuscular Hemoglobin Concent 30.6 L Red Cell Distribution Width 16.1 H Platelet Count 315 # Mean Platelet Volume 9.4 Immature Granulocytes % 1.100 H Neutrophils % 82.8 H Lymphocytes % 10.6 L Monocytes % 5.3 Eosinophils % 0.0 Basophils % 0.2 Nucleated Red Blood Cells % 0.0 Immature Granulocytes # 0.130 H Neutrophils # 10.0 H Lymphocytes # 1.3 Monocytes # 0.6 Eosinophils # 0.0 Basophils # 0.0 Nucleated Red Blood Cells # 0.0 Sodium Level 140 Potassium Level 4.2 Chloride Level 102 Carbon Dioxide Level 30 Anion Gap 8 Blood Urea Nitrogen 21 H Creatinine 1.10 Est Glomerular Filtrat Rate mL/min > 60 Glucose Level 129 Calcium Level 9.0 Medications Medication Current Medications IV Flush (NS 3 ml) 3 ml PER PROTOCOL IV ; Start 10/20/18 at 00:30 Ondansetron HCl (Zofran Inj) 4 mg Q6H PRN IV NAUSEA/VOMITING; Start 10/20/18 at 00:30 Acetaminophen (Tylenol Tab) 650 mg Q6H PRN PO .PAIN 1-3 OR TEMP; Start 10/20/18 at 00:30 Heparin Sodium (Porcine) (Heparin (5000 Units/1ml)) 5,000 unit Q12 SC Last administered on 10/23/18 09:08; Admin Dose 5,000 UNIT; Start 10/20/18 at 09:00 Albuterol/ Ipratropium (Duoneb) 3 ml Q2H RESP THERAPY PRN HHN SHORTNESS OF BREATH; Start 10/20/18 at 00:30 Aripiprazole (Abilify) 10 mg DAILY PO Last administered on 10/23/18 08:58; Admin Dose 10 MG; Start 10/20/18 at 09:00 Aspirin (Aspirin) 81 mg DAILY PO Last administered on 10/23/18 08:59; Admin Dose 81 MG; Start 10/20/18 at 09:00 Ferrous Sulfate (Ferrous Sulfate (Ec)) 325 mg BID PO Last administered on 10/23/18 08:59; Admin Dose 325 MG; Start 10/20/18 at 09:00 Itraconazole (Sporanox) 200 mg BID PO Last administered on 10/23/18 08:58; Admin Dose 200 MG; Start 10/20/18 at 09:00 Losartan Potassium (Cozaar) 25 mg BID PO Last administered on 10/23/18 08:59; Admin Dose 25 MG; Start 10/20/18 at 09:00 Pentoxifylline (Trental) 400 mg TID PO Last administered on 10/23/18 12:22; Admin Dose 400 MG; Start 10/20/18 at 09:00 Vancomycin HCl (Vanco Iv Per Pharmacy) VANCOMYCIN PER PHARMACY PER PROTOCOL XX ; Start 10/20/18 at 09:00 Atorvastatin Calcium (Lipitor) 10 mg DAILY@21 PO Last administered on 10/22/18at 20:10; Admin Dose 10 MG; Start 10/20/18 at 21:00 Miscellaneous Information (Pending Santyl Order For Wound Care) This patient ricardo... PRN PRN XX WOUND CARE; Start 10/20/18 at 03:30 Vancomycin HCl 1.75 gm/Sodium Chloride 500 ml @ 125 mls/hr Q12H IVPB Last administered on 10/23/18at 06:14; Admin Dose 125 MLS/HR; Start 10/20/18 at 18:00 Levofloxacin/ Dextrose 150 ml @ 100 mls/hr Q24H IVPB Last administered on 10/22/18at 15:26; Admin Dose 100 MLS/HR; Start 10/20/18 at 15:30 Miscellaneous Information (*Rx Drug Level Order Reminder*) VANCO TROUGH ON 10/09. .. 1700 ONCE XX ; Start 10/23/18 at 17:00; Stop 10/23/18 at 17:01 SEAN YANEZ NP October 23, 2018 14:38
[2018-10-23] MEDS: LEVOFLOXACIN 750MG/D5W (PMX) 150 ML IVPB SCH (15:13)
[2018-10-23] MEDS ORDERED: METHADONE (1 MG/ML 5 ML PO UD SYG) PO SCH (21:00)
[2018-10-23] MEDS: ATORVASTATIN 10 MG TAB PO SCH (21:42)
[2018-10-23] MEDS: morphine 4 MG/ML VIAL IV PRN (22:24)
[2018-10-23] MEDS: [UNRECOGNIZED DRUG - OTHER] XX SCH (22:27)
[2018-10-23] MEDS ORDERED: VANCOMYCIN HCL 1.25 GM in SOD CHLORIDE 0.9% 250 ML IVPB SCH (23:00)
[2018-10-24] VITALS: BP 126/61; PULSE 53; PULSE 64; RESP 18
[2018-10-24] MEDS: morphine 4 MG/ML VIAL IV PRN ×2 (02:30→06:42)
[2018-10-24] MEDS: [UNRECOGNIZED DRUG - OTHER] XX SCH (03:23)
[2018-10-24 04:00] VITALS: BP 120/66; PULSE 53; PULSE 62; RESP 18
--- NOTE | 2018-10-24 22:20 | DS ---
Date/Time of Note Date/Time of Note DATE: 10/24/18 TIME: 22:19 Discharge Summary Admission/Discharge Info Admit Date/Time October 19, 2018 at 20:49 Discharge Date/Time October 24, 2018 at 08:00 Discharge Diagnosis 1. Purulent left leg infection: Patient with history of bilateral lower extremity wound status post excisional debridement with a wound VAC 2 months ago -Patient was sent by his track and field coach, Dr. Del Valle -Last culture from wound showed staph, Corynebacterium and Pseudomonas -Continue vancomycin, further antibiotics per ID -10/22/18: excisional debridement b/l lower extremity / application of wound VAC bilateral lower extremity / B/l wound tissue biopsy 2. Hypertension: Adjust BP meds as needed 3. History of DVT status post IVC filter 4. Iron deficiency anemia: Continue ferrous sulfate 5. Depression/anxiety: Continue home med 6. Bilateral lower extremity cellulitis 7. Chronic venous hypertension with ulceration b/l lower extremity 8. Lymphedema 9. Venous insufficiency Patient Condition: Stable Hospital Course Patient chose to leave AGAINST MEDICAL ADVICE earlier this morning. Please see my notes from October 23, 2018 for details of our last discussion. No discharge instructions or prescriptions were given. . Home Meds Active Scripts Ferrous Sulfate* (Ferrous Sulfate*) 325 Mg Tabec, 325 MG PO BID, #60 TAB Prov:JIMENEZDANIELLE V. SUPERVISING FLOORPERSON 08/25/18 Clindamycin Hcl* (Clindamycin Hcl*) 300 Mg Capsule, 300 MG PO QID, #56 CAP Prov:JIMENEZ,DANIELLE V. SUPERVISING FLOORPERSON 08/24/18 Aspirin (Aspirin) 81 Mg Chew, 81 MG PO DAILY, #30 TAB Prov:DANIELLE JIMENEZ V. SUPERVISING FLOORPERSON 08/24/18 Pentoxifylline* (Pentoxifylline*) 400 Mg Tablet.sa, 400 MG PO TID, #90 TAB Prov:JIMENEZDANIELLE V. SUPERVISING FLOORPERSON 08/24/18 Itraconazole* (Itraconazole*) 100 Mg Capsule, 200 MG PO BID, #30 CAP Prov:JIMENEZ,DANIELLE V. SUPERVISING FLOORPERSON 08/24/18 Ciprofloxacin Hcl* (Ciprofloxacin Hcl*) 500 Mg Tablet, 500 MG PO BID@06,18, #30 TAB Prov:JIMENEZJORGE UREÑAA Frank SUPERVISING FLOORPERSON 08/24/18 Reported Medications Hydrocodone/Acetaminophen ([place] 10-325 Tablet) 1 Each Tablet, 1 EACH PO Q6 PRN for PAIN LEVEL 6-10, TAB 10/20/18 Aripiprazole* (Abilify*) 10 Mg Tablet, 10 MG PO DAILY, #30 TAB 08/18/18 Alprazolam* (Xanax*) 2 Mg Tablet, 2 MG PO TID, TAB 08/18/18 Losartan Potassium* (Cozaar*) 25 Mg Tablet, 25 MG PO BID, #60 TAB 08/18/18 Lovastatin (Lovastatin) 40 Mg Tablet, 30 MG PO HS, TAB 08/18/18 Primary Care Provider Care Physician No Primary SHIVAM QUINTANILLA October 24, 2018 22:20
[2018-10-25] MEDS ORDERED: FOLI-49 PO (08:01)
== END 2018-10-24 08:00 | disposition left against medical advice (07) | DRG 571 ==
LOC: E/R 16:29 → TEL 20:49 → CANRESERV 20:56 → EDBEDREQSVC 21:48 → TEL 10-22 00:15
PROVIDERS: ADMIT Internal Medicine; ATTEND Family Medicine
PROC: 0JBL0ZZ Excision of Right Upper Leg Subcutaneous Tissue and Fascia, Open Approach (ICD-10-PCS; 2018-10-22)
PROC: 0JBN0ZZ Excision of Right Lower Leg Subcutaneous Tissue and Fascia, Open Approach (ICD-10-PCS; 2018-10-22)
PROC: 0JBP0ZZ Excision of Left Lower Leg Subcutaneous Tissue and Fascia, Open Approach (ICD-10-PCS; principal; 2018-10-22 10:30)
DX: L03.116 Cellulitis of left lower limb (principal); L97.919 Non-pressure chronic ulcer of unspecified part of right lower leg with unspecified severity; N17.9 Acute kidney failure, unspecified; L97.929 Non-pressure chronic ulcer of unspecified part of left lower leg with unspecified severity; L03.115 Cellulitis of right lower limb; I87.8 Other specified disorders of veins; R06.2 Wheezing; T36.0X5A Adverse effect of penicillins, initial encounter; Y92.239 Unspecified place in hospital as the place of occurrence of the external cause; D50.9 Iron deficiency anemia, unspecified; Z86.718 Personal history of other venous thrombosis and embolism; F41.8 Other specified anxiety disorders; B35.1 Tinea unguium; B35.3 Tinea pedis; E66.01 Morbid (severe) obesity due to excess calories; Z68.39 Body mass index [BMI] 39.0-39.9, adult; B96.5 Pseudomonas (aeruginosa) (mallei) (pseudomallei) as the cause of diseases classified elsewhere; B95.62 Methicillin resistant Staphylococcus aureus infection as the cause of diseases classified elsewhere; B95.4 Other streptococcus as the cause of diseases classified elsewhere
CPT/HCPCS: 36415; 71045; 80048; 80053; 80061; 80202; 83036; 83605; 83735; 84100; 84145; 84484; 85025; 85610; 85651; 85730; 86140; 87070; 87075; 87081; 87102; 88304; 93005; 94664; J0171; J0400; J1100; J1170; J1200; J1644; J1956; J2270; J2405; J2543; J2930; J3010; J3370; J7030; J7040; J7050; J7120

== ENCOUNTER 2018-10-25 04:47 | Inpatient (IN) | payer OTHER ==
[~2018-10-25] VITALS: Ht 185.4 cm; Wt 132.5 kg
[~2018-10-25 04:47] MED LIST changes: +HYDR-3980 PO
--- NOTE | 2018-10-25 07:15 | ERD ---
ER Documentation Chief Complaint Chief Complaint PT STATES HE WAS TOLD TO RETURN FOR WOUND VAC PLACEMENT HPI This is a 58-year-old man who is here for readmission to the hospital. The deshaun ent went AMA yesterday because he had things to do he states. He has bilateral lower extremity Pseudomonas infections with bilateral wound VAC's. He was getting intravenous antibiotics and being followed by Dr. Del Valle 1. Purulent left leg infection: Patient with history of bilateral lower extremity wound status post excisional debridement with a wound VAC 2 months ago -Patient was sent by his property assistant, Dr. Del Valle -Last culture from wound showed staph, Corynebacterium and Pseudomonas -Continue vancomycin, further antibiotics per ID -10/22/18: excisional debridement b/l lower extremity / application of wound VAC bilateral lower extremity / B/l wound tissue biopsy 2. Hypertension: Adjust BP meds as needed 3. History of DVT status post IVC filter 4. Iron deficiency anemia: Continue ferrous sulfate 5. Depression/anxiety: Continue home med 6. Bilateral lower extremity cellulitis 7. Chronic venous hypertension with ulceration b/l lower extremity 8. Lymphedema 9. Venous insufficiency ROS All systems reviewed and are negative except as per history of present illness. Medications Home Meds Active Scripts Ferrous Sulfate* (Ferrous Sulfate*) 325 Mg Tabec, 325 MG PO BID, #60 TAB Prov:JIMENEZDANIELLE V. BUILDING REPAIR MAINTENANCE SUPERVISOR 08/25/18 Clindamycin Hcl* (Clindamycin Hcl*) 300 Mg Capsule, 300 MG PO QID, #56 CAP Prov:JIMENEZ,DANIELLE V. BUILDING REPAIR MAINTENANCE SUPERVISOR 08/24/18 Aspirin (Aspirin) 81 Mg Chew, 81 MG PO DAILY, #30 TAB Prov:JIMENEZDANIELLE UREÑA V. BUILDING REPAIR MAINTENANCE SUPERVISOR 08/24/18 Pentoxifylline* (Pentoxifylline*) 400 Mg Tablet.sa, 400 MG PO TID, #90 TAB Prov:JIMENEZJORGEA V. BUILDING REPAIR MAINTENANCE SUPERVISOR 08/24/18 Itraconazole* (Itraconazole*) 100 Mg Capsule, 200 MG PO BID, #30 CAP Prov:JIMENEZ,DANIELLE V. BUILDING REPAIR MAINTENANCE SUPERVISOR 08/24/18 Ciprofloxacin Hcl* (Ciprofloxacin Hcl*) 500 Mg Tablet, 500 MG PO BID@06,18, #30 TAB Prov:JIMENEZDANIELLE V. BUILDING REPAIR MAINTENANCE SUPERVISOR 08/24/18 Reported Medications Hydrocodone/Acetaminophen ([place] 10-325 Tablet) 1 Each Tablet, 1 EACH PO Q6 PRN for PAIN LEVEL 6-10, TAB 10/20/18 Aripiprazole* (Abilify*) 10 Mg Tablet, 10 MG PO DAILY, #30 TAB 08/18/18 Alprazolam* (Xanax*) 2 Mg Tablet, 2 MG PO TID, TAB 08/18/18 Losartan Potassium* (Cozaar*) 25 Mg Tablet, 25 MG PO BID, #60 TAB 08/18/18 Lovastatin (Lovastatin) 40 Mg Tablet, 30 MG PO HS, TAB 08/18/18 Allergies Allergies: Coded Allergies: piperacillin (Verified Allergy, Severe, 10/19/18) tazobactam (Verified Allergy, Severe, 10/19/18) Phenothiazines (Verified Allergy, Intermediate, 08/18/18) prochlorperazine (Verified Allergy, Intermediate, 08/18/18) PMhx/Soc History of Surgery: Yes ( SKIN GRAFT 1 MONTH AGO) Anesthesia Reaction: No Hx Neurological Disorder: No Hx Respiratory Disorders: No Hx Cardiac Disorders: Yes (HTN) Hx Psychiatric Problems: No Hx Miscellaneous Medical Probl: No Hx Alcohol Use: No Hx Substance Use: No Hx Tobacco Use: No Smoking Status: Never smoker FmHx Family History: No coronary disease Physical Exam Vitals Vital Signs Date Temp Pulse Resp B/P (MAP) Pulse Ox O2 O2 Flow FiO2 Time Delivery Rate 10/25/18 98.9 60 14 113/62 95 Room Air 06:56 (79) 10/25/18 97.6 63 18 139/67 94 05:01 (91) Physical Exam Const: No acute distress Head: Atraumatic Eyes: Normal Conjunctiva ENT: Normal External Ears, Nose and Mouth. Neck: Full range of motion. No meningismus. Resp: Clear to auscultation bilaterally Cardio: Regular rate and rhythm, no murmurs Abd: Soft, non tender, non distended. Normal bowel sounds Skin: No petechiae or rashes Back: No midline or flank tenderness Ext: Bilateral lower extremity edema with bilateral wound VAC's with Miguel Angel wraps Neur: Awake and alert Psych: Normal Mood and Affect Results 24 hrs Current Medications Medications Dose Sig/Balbir Start Time Status Last (Trade) Ordered Route PRN Stop Time Admin Dose Reason Admin Ondansetron 4 mg BRIDGE ORDER 10/25/18 HCl (Zofran PRN IV 07:30 Inj) NAUSEA/VOMITI 10/26/18 07:29 NG 650 mg ER BRIDGE 10/25/18 Acetaminophen PRN PO 07:30 (Tylenol .MILD PAIN 10/26/18 07:29 Tab) 1-3 OR TEMP Procedures/MDM Patient will be readmitted to the hospital under Dr. Naranjo Departure Diagnosis: Primary Impression: Bilateral cellulitis of lower leg Condition: Stable PEGGY MCNULTY DO October 25, 2018 07:15
[2018-10-25] MEDS ORDERED: ONDANSETRON 4 MG INJ IV PRN (07:30)
[2018-10-25] MEDS ORDERED: ACETAMINOPHEN 325 MG TAB PO PRN (07:30)
[2018-10-25] MEDS ORDERED: FOLI-49 PO (08:01)
[2018-10-25] MEDS: FOLIC ACID 1 MG TAB PO SCH (11:30)
[2018-10-25] MEDS ORDERED: oxyCODONE 5 MG TAB PO PRN (11:30)
[2018-10-25] MEDS ORDERED: morphine 2 MG INJ IV PRN (11:30)
[2018-10-25] MEDS: FERROUS SULFATE (EC) 325 MG TAB PO SCH ×2 (11:30→21:35)
[2018-10-25] MEDS ORDERED: VANCOMYCIN IV PER PHARMACY XX SCH (11:30)
--- NOTE | 2018-10-25 11:30 | HP ---
Date/Time of Note Date/Time of Note DATE: 10/25/18 TIME: 11:17 Assessment/Plan VTE Prophylaxis Pharmacological prophylaxis: heparin Lines/Catheters IV Catheter Type (from Nrs): Saline Lock Assessment/Plan Hospital Course 1. Bilateral lower extremity acute on chronic cellulitis with abscess 60 status post debridement with wound VAC application bilaterally c -Wound cultures grew Pseudomonas, MRSA Enterobacter, Corynebacterium and s trep pyogenes. -Patient was on Vanco Levaquin prior to leaving yesterday. -Obtain final antibiotic recommendations from ID -10/22/18: excisional debridement b/l lower extremity / application of wound VAC bilateral lower extremity / B/l wound tissue biopsy 2. Hypertension: fair control 3. History of DVT status post IVC filter 4. Iron deficiency anemia: Continue ferrous sulfate 5. Depression/anxiety: Continue home med 6. Narcotic seeking behavior: Asking for narcotics by name and by dose, unwillingness to consider alternative drugs for pain. 7. Chronic venous hypertension with ulceration b/l lower extremity 8. Lymphedema 9. Venous insufficiency 10. JAY on CKD: Ultrasound showed no abnormality/ nephrology consultation / trend creatinine levels / Vanco alternative ? Dispo: -Obtain final antibiotic recommendations from infectious disease. Case management should arrange home wound VAC on antibiotics. Once this has been set up, patient can be discharged. Result Diagram: 10/25/18 0822 10/25/18 0822 Results 24hrs Laboratory Tests Test 10/25/18 08:22 White Blood Count 11.8 H Red Blood Count 4.78 Hemoglobin 11.8 L Hematocrit 39.6 L Mean Corpuscular Volume 82.8 Mean Corpuscular Hemoglobin 24.7 L Mean Corpuscular Hemoglobin Concent 29.8 L Red Cell Distribution Width 16.9 H Platelet Count 303 Mean Platelet Volume 9.3 Immature Granulocytes % 1.200 H Neutrophils % 74.1 Lymphocytes % 18.0 Monocytes % 5.2 Eosinophils % 0.9 Basophils % 0.6 Nucleated Red Blood Cells % 0.0 Immature Granulocytes # 0.140 H Neutrophils # 8.7 H Lymphocytes # 2.1 Monocytes # 0.6 Eosinophils # 0.1 Basophils # 0.1 Nucleated Red Blood Cells # 0.0 Sodium Level 143 Potassium Level 4.6 Chloride Level 107 Carbon Dioxide Level 29 Anion Gap 7 Blood Urea Nitrogen 40 #H Creatinine 1.87 H Est Glomerular Filtrat Rate mL/min 37 L Glucose Level 116 Calcium Level 9.0 Total Bilirubin 0.3 Direct Bilirubin 0.00 Indirect Bilirubin 0.3 Aspartate Amino Transf (AST/SGOT) 18 Alanine Aminotransferase (ALT/SGPT) 15 Alkaline Phosphatase 144 H Total Protein 8.1 Albumin 3.6 Globulin 4.50 H Albumin/Globulin Ratio 0.80 HPI/ROS Admit Date/Time Admit Date/Time Hx of Present Illness 58-year-old male who left this hospital AGAINST MEDICAL ADVICE yesterday stating that he had a family emergency to attend to. He was seen in November 06 outpatient technical spec office call bilateral lower extremity ulcers that had failed outpatient therapy. He was taken to the outpatient October 22, 2018 following debridement. Lower extremity MRI did not show acute osteomyelitis. Patient may have had sequelae of prior osteomyelitis but no acute findings. Time he left, we were awaiting final cultures from the intraoperative samples and case management already in process of arranging a wound VAC for home use. We will resume the process, final sensitivities are not available, will get final anti biotic recommendations from infectious disease. At this time his creatinine levels are slightly elevated. Patient does not have any new symptomatology however ROS 12 point review if systems was done and pertinent findings are as noted. PMH/Family/Social Past Medical History 1. Bilateral lower extremity cellulitis, failed outpatient treatment status post excisional debridement October 22, 2018 with wound VAC application 2. Hypertension 3. History of DVT status post IVC filter 4. Iron deficiency anemia with folate 5. Chronic anxiety depression 6. Chronic narcotic user, possible narcotic seeking behavior Medications Current Medications Ondansetron HCl (Zofran Inj) 4 mg BRIDGE ORDER PRN IV NAUSEA/VOMITING; Start 10/25/18 at 07:30; Stop 10/26/18 at 07:29 Acetaminophen (Tylenol Tab) 650 mg ER BRIDGE PRN PO .MILD PAIN 1-3 OR TEMP; Start 10/25/18 at 07:30; Stop 10/26/18 at 07:29 Coded Allergies: piperacillin (Verified Allergy, Severe, 10/19/18) tazobactam (Verified Allergy, Severe, 10/19/18) Phenothiazines (Verified Allergy, Intermediate, 08/18/18) prochlorperazine (Verified Allergy, Intermediate, 08/18/18) Family History Significant Family History: no pertinent family hx Social History Alcohol Use: none Smoking Status: Never smoker Drug Use: other (denies) Exam/Review of Systems Vital Signs Vitals Vital Signs Date Temp Pulse Resp B/P (MAP) Pulse Ox O2 O2 Flow FiO2 Time Delivery Rate 10/25/18 58 16 109/61 98 Room Air 10:40 (77) 10/25/18 98.9 06:56 Exam Constitutional: alert, oriented; No distress Head: normocephalic Eyes: PERRL Neck: supple Respiratory: clear to auscultation Cardiovascular: regular rate and rhythm Gastrointestinal: soft, non-tender Neurological: nl mental status (He is) SHIVAM QUINTANILLA October 25, 2018 11:27
--- NOTE | 2018-10-25 11:40 | CONS ---
Assessment/Plan Assessment/Plan Assessment/Plan (Daily) 1. acute kidney injury on CKD II 2/2 Prerenal azotemia + ATN 2. acute on chronic Bilateral LE cellulitis 3. H/o HTN 4. h/O DVT s/p IVF filter 5. Iron deficiency Anemia 6. Depression/anxiety 6. Narcotic seeking behavior 7. Chronic venous hypertension with ulceration b/l lower extremity 8. Lymphedema Plan: seen in ED stop Losartan due to JAY , will add hydralazine 50mg PO TID IVF NS at 100 cc/hr Continue other home meds IV abx as per ID, Renally dose all abx and monitor electorlytes Thanks For consultation, I will conitnue to follow up Consultation Date/Type/Reason Admit Date/Time 10/25/2018 Date of Consultation: October 25, 2018 Type of Consult NEPHROLOGY Reason for Consultation Acute vs Acute on chronic renal failure Requesting Provider: SHIVAM QUINTANILLA Date/Time of Note DATE: 10/25/18 TIME: 11:39 Hx of Present Illness 58-year-old male who left this hospital AGAINST MEDICAL ADVICE yesterday stating that he had a family emergency to attend to. He was seen in November 06 outpatient interactive art director office call bilateral lower extremity ulcers that had failed outpatient therapy. He was taken to the outpatient October 22, 2018 following debridement. Lower extremity MRI did not show acute osteomyelitis. Pt had normal BUN/Cr around 0/8-1.0 in last 4 months, Today On admission BUN/Cr 40/1.87- renal has been consulted for acute vs acute on chronic renal failure. Constitutional: poor po Eyes: no complaints ENT: no complaints Respiratory: no complaints Cardiovascular: no complaints Gastrointestinal: no complaints Genitourinary: no complaints Musculoskeletal: no complaints Skin: erythema, laceration, pruritis Neurologic: no complaints Endocrine: no complaints Lymphatic: no complaints Psychological: no complaints Immunologic: no complaints Past Medical History Medical History: high cholesterol, hypertension, other (Chronic pain ) Home Meds Active Scripts Ferrous Sulfate* (Ferrous Sulfate*) 325 Mg Tabec, 325 MG PO BID, #60 TAB Prov:JIMENEZ,DANIELLE V. WAYBILL CLERK 08/25/18 Clindamycin Hcl* (Clindamycin Hcl*) 300 Mg Capsule, 300 MG PO QID, #56 CAP Prov:JIMENEZ,DANIELLE V. WAYBILL CLERK 08/24/18 Reported Medications Folic Acid* (Folic Acid*) 1 Mg Tablet, 1 MG PO DAILY, TAB 10/25/18 Hydrocodone/Acetaminophen ([place] 10-325 Tablet) 1 Each Tablet, 1 EACH PO Q6 PRN for PAIN LEVEL 6-10, TAB 10/20/18 Aripiprazole* (Abilify*) 10 Mg Tablet, 10 MG PO DAILY, #30 TAB 08/18/18 Alprazolam* (Xanax*) 2 Mg Tablet, 2 MG PO TID, TAB 08/18/18 Losartan Potassium* (Cozaar*) 25 Mg Tablet, 25 MG PO BID, #60 TAB 08/18/18 Lovastatin (Lovastatin) 40 Mg Tablet, 30 MG PO HS, TAB 08/18/18 Discontinued Scripts Aspirin (Aspirin) 81 Mg Chew, 81 MG PO DAILY, #30 TAB Prov:JIMENEZJORGEA V. WAYBILL CLERK 08/24/18 Pentoxifylline* (Pentoxifylline*) 400 Mg Tablet.sa, 400 MG PO TID, #90 TAB Prov:JIMENEZDANIELLE V. WAYBILL CLERK 08/24/18 Itraconazole* (Itraconazole*) 100 Mg Capsule, 200 MG PO BID, #30 CAP Prov:JIMENEZJORGEA V. WAYBILL CLERK 08/24/18 Ciprofloxacin Hcl* (Ciprofloxacin Hcl*) 500 Mg Tablet, 500 MG PO BID@,18, #30 TAB Prov:JIMENEZJORGEA V. WAYBILL CLERK 08/24/18 Medications Current Medications Ondansetron HCl (Zofran Inj) 4 mg BRIDGE ORDER PRN IV NAUSEA/VOMITING; Start 10/25/18 at 07:30; Stop 10/26/18 at 07:29 Acetaminophen (Tylenol Tab) 650 mg ER BRIDGE PRN PO .MILD PAIN 1-3 OR TEMP; Start 10/25/18 at 07:30; Stop 10/26/18 at 07:29 Aripiprazole (Abilify) 10 mg DAILY PO ; Start 10/26/18 at 09:00; Status UNV Ferrous Sulfate (Ferrous Sulfate (Ec)) 325 mg BID PO ; Start 10/25/18 at 11:30; Status UNV Folic Acid (Folic Acid) 1 mg DAILY PO ; Start 10/25/18 at 11:30; Status UNV Losartan Potassium (Cozaar) 25 mg BID PO ; Start 10/25/18 at 11:30; Status UNV Miscellaneous Information 30 mg HS PO ; Start 10/25/18 at 21:00; Status UNV Levofloxacin (Levaquin) 500 mg DAILY@06 PO ; Start 10/25/18 at 11:30; Status UNV Docusate Sodium (Colace) 100 mg BID PO ; Start 10/25/18 at 11:30 Morphine Sulfate (morphine) 2 mg Q4H PRN IV SEVERE PAIN LEVEL 7-10; Start 10/25/18 at 11:30; Status UNV Oxycodone HCl (Roxicodone) 5 mg Q4H PRN PO MODERATE PAIN LEVEL 4-6; Start 10/25/18 at 11:30; Status UNV Lactobacillus Acidophilus/ Rhamnosus (Culturelle) 1 cap BID PO ; Start 10/25/18 at 11:30; Status UNV Heparin Sodium (Porcine) (Heparin (5000 Units/1ml)) 5,000 unit BID SC ; Start 10/25/18 at 21:00; Status UNV Sodium Chloride 1,000 ml @ 125 mls/hr Q8H IV ; Start 10/25/18 at 11:30; Status UNV Doxycycline Hyclate (Vibramycin) 100 mg BID PO ; Start 10/25/18 at 12:00 Allergies: Coded Allergies: milk (Verified Allergy, Severe, diarrhea, 10/25/18) piperacillin (Verified Allergy, Severe, 10/19/18) tazobactam (Verified Allergy, Severe, 10/19/18) Phenothiazines (Verified Allergy, Intermediate, 08/18/18) prochlorperazine (Verified Allergy, Intermediate, 08/18/18) Past Surgical History Past Surgical Hx: noncontributory Family History Significant Family History: no pertinent family hx Social History Alcohol Use: none Smoking Status: Never smoker Drug Use: other (denies) Exam/Review of Systems Exam Vitals Vital Signs Date Temp Pulse Resp B/P (MAP) Pulse Ox O2 O2 Flow FiO2 Time Delivery Rate 10/25/18 58 16 109/61 98 Room Air 10:40 (77) 10/25/18 98.9 06:56 Exam Constitutional: alert, oriented; Head: normocephalic Eyes: PERRL Neck: supple Respiratory: clear to auscultation Cardiovascular: regular rate and rhythm Gastrointestinal: soft, non-tender Neurological: nl mental status , no focal deficits Results Result Diagram: 10/25/18 0822 10/25/18 0822 Results 24hrs Laboratory Tests Test 10/25/18 08:22 White Blood Count 11.8 H Red Blood Count 4.78 Hemoglobin 11.8 L Hematocrit 39.6 L Mean Corpuscular Volume 82.8 Mean Corpuscular Hemoglobin 24.7 L Mean Corpuscular Hemoglobin Concent 29.8 L Red Cell Distribution Width 16.9 H Platelet Count 303 Mean Platelet Volume 9.3 Immature Granulocytes % 1.200 H Neutrophils % 74.1 Lymphocytes % 18.0 Monocytes % 5.2 Eosinophils % 0.9 Basophils % 0.6 Nucleated Red Blood Cells % 0.0 Immature Granulocytes # 0.140 H Neutrophils # 8.7 H Lymphocytes # 2.1 Monocytes # 0.6 Eosinophils # 0.1 Basophils # 0.1 Nucleated Red Blood Cells # 0.0 Sodium Level 143 Potassium Level 4.6 Chloride Level 107 Carbon Dioxide Level 29 Anion Gap 7 Blood Urea Nitrogen 40 #H Creatinine 1.87 H Est Glomerular Filtrat Rate mL/min 37 L Glucose Level 116 Calcium Level 9.0 Total Bilirubin 0.3 Direct Bilirubin 0.00 Indirect Bilirubin 0.3 Aspartate Amino Transf (AST/SGOT) 18 Alanine Aminotransferase (ALT/SGPT) 15 Alkaline Phosphatase 144 H Total Protein 8.1 Albumin 3.6 Globulin 4.50 H Albumin/Globulin Ratio 0.80 Medications Medication Current Medications Ondansetron HCl (Zofran Inj) 4 mg BRIDGE ORDER PRN IV NAUSEA/VOMITING; Start 10/25/18 at 07:30; Stop 10/26/18 at 07:29 Acetaminophen (Tylenol Tab) 650 mg ER BRIDGE PRN PO .MILD PAIN 1-3 OR TEMP; Start 10/25/18 at 07:30; Stop 10/26/18 at 07:29 Aripiprazole (Abilify) 10 mg DAILY PO ; Start 10/26/18 at 09:00; Status UNV Ferrous Sulfate (Ferrous Sulfate (Ec)) 325 mg BID PO ; Start 10/25/18 at 11:30; Status UNV Folic Acid (Folic Acid) 1 mg DAILY PO ; Start 10/25/18 at 11:30; Status UNV Losartan Potassium (Cozaar) 25 mg BID PO ; Start 10/25/18 at 11:30; Status UNV Miscellaneous Information 30 mg HS PO ; Start 10/25/18 at 21:00; Status UNV Levofloxacin (Levaquin) 500 mg DAILY@06 PO ; Start 10/25/18 at 11:30; Status UNV Docusate Sodium (Colace) 100 mg BID PO ; Start 10/25/18 at 11:30 Morphine Sulfate (morphine) 2 mg Q4H PRN IV SEVERE PAIN LEVEL 7-10; Start 10/25/18 at 11:30; Status UNV Oxycodone HCl (Roxicodone) 5 mg Q4H PRN PO MODERATE PAIN LEVEL 4-6; Start 10/25/18 at 11:30; Status UNV Lactobacillus Acidophilus/ Rhamnosus (Culturelle) 1 cap BID PO ; Start 10/25/18 at 11:30; Status UNV Heparin Sodium (Porcine) (Heparin (5000 Units/1ml)) 5,000 unit BID SC ; Start 10/25/18 at 21:00; Status UNV Sodium Chloride 1,000 ml @ 125 mls/hr Q8H IV ; Start 10/25/18 at 11:30; Status UNV Doxycycline Hyclate (Vibramycin) 100 mg BID PO ; Start 10/25/18 at 12:00 EMMA DE MD October 25, 2018 11:39
[2018-10-25 11:51] VITALS: BP 153/83; PULSE 60; RESP 18
--- NOTE | 2018-10-25 12:14 | CONS ---
Assessment/Plan Assessment/Plan Hospital Course (Demo Recall) Patient is alert looks comfortable no fevers overnight Wound cultures grew Pseudomonas, MRSA Enterobacter and strep pyogenous Allergies: Zosyn ===> anaphylaxis Antimicrobials: Doxycycline Levaquin Physical examination: Obese well-developed middle-aged man who is in no distress. Head atraumatic normocephalic neck is supple chest rise symmetrical breath sounds diminished bases heart S1-S2 abdomen soft bowel sounds present extremities: Bilateral lower extremities Miguel [place] wrap Assessment: 1. Bilateral lower extremities acute on chronic cellulitis, status post debridement 2. Morbid obesity 3. History of DVT 4. Hypertension Plan: Stable, ok dc on current antibiotics, follow podiatry recommendations Consultation Date/Type/Reason Admit Date/Time October 25, 2018 at 07:13 Initial Consult Date 10/25/18 Type of Consult id Requesting Provider: SHIVAM QUINTANILLA Date/Time of Note DATE: 10/25/18 TIME: 12:13 Exam/Review of Systems Exam Vitals Vital Signs Date Temp Pulse Resp B/P (MAP) Pulse Ox O2 O2 Flow FiO2 Time Delivery Rate 10/25/18 97.9 60 18 153/83 96 Room Air 11:51 (106) Results Result Diagram: 10/25/18 0822 10/25/18 0822 Results 24hrs Laboratory Tests Test 10/25/18 08:22 White Blood Count 11.8 H Red Blood Count 4.78 Hemoglobin 11.8 L Hematocrit 39.6 L Mean Corpuscular Volume 82.8 Mean Corpuscular Hemoglobin 24.7 L Mean Corpuscular Hemoglobin Concent 29.8 L Red Cell Distribution Width 16.9 H Platelet Count 303 Mean Platelet Volume 9.3 Immature Granulocytes % 1.200 H Neutrophils % 74.1 Lymphocytes % 18.0 Monocytes % 5.2 Eosinophils % 0.9 Basophils % 0.6 Nucleated Red Blood Cells % 0.0 Immature Granulocytes # 0.140 H Neutrophils # 8.7 H Lymphocytes # 2.1 Monocytes # 0.6 Eosinophils # 0.1 Basophils # 0.1 Nucleated Red Blood Cells # 0.0 Sodium Level 143 Potassium Level 4.6 Chloride Level 107 Carbon Dioxide Level 29 Anion Gap 7 Blood Urea Nitrogen 40 #H Creatinine 1.87 H Est Glomerular Filtrat Rate mL/min 37 L Glucose Level 116 Calcium Level 9.0 Total Bilirubin 0.3 Direct Bilirubin 0.00 Indirect Bilirubin 0.3 Aspartate Amino Transf (AST/SGOT) 18 Alanine Aminotransferase (ALT/SGPT) 15 Alkaline Phosphatase 144 H Total Protein 8.1 Albumin 3.6 Globulin 4.50 H Albumin/Globulin Ratio 0.80 Medications Medication Current Medications Aripiprazole (Abilify) 10 mg DAILY PO ; Start 10/26/18 at 09:00 Ferrous Sulfate (Ferrous Sulfate (Ec)) 325 mg BID PO ; Start 10/25/18 at 11:30 Folic Acid (Folic Acid) 1 mg DAILY PO ; Start 10/25/18 at 11:30 Losartan Potassium (Cozaar) 25 mg BID PO ; Start 10/25/18 at 11:30 Atorvastatin Calcium (Lipitor) 20 mg DAILY@21 PO ; Start 10/25/18 at 21:00 Levofloxacin (Levaquin) 500 mg DAILY@06 PO ; Start 10/25/18 at 11:30 Docusate Sodium (Colace) 100 mg BID PO ; Start 10/25/18 at 11:30 Morphine Sulfate (morphine) 2 mg Q4H PRN IV SEVERE PAIN LEVEL 7-10; Start 10/09 12/27 at 11:30 Oxycodone HCl (Roxicodone) 5 mg Q4H PRN PO MODERATE PAIN LEVEL 4-6; Start 10/25/18 at 11:30 Lactobacillus Acidophilus/ Rhamnosus (Culturelle) 1 cap BID PO ; Start 10/25/18 at 11:30 Heparin Sodium (Porcine) (Heparin (5000 Units/1ml)) 5,000 unit BID SC ; Start 10/25/18 at 21:00 Sodium Chloride 1,000 ml @ 125 mls/hr Q8H IV ; Start 10/25/18 at 11:30 Doxycycline Hyclate (Vibramycin) 100 mg BID PO ; Start 10/25/18 at 12:00 SEAN YANEZ NP October 25, 2018 12:14
[2018-10-25] MEDS: DOCUSATE SODIUM 100 MG CAP PO SCH ×2 (12:31→21:35)
[2018-10-25] MEDS: LACTOBACILLUS RHAMNOSUS CAP PO SCH ×2 (12:32→21:35)
[2018-10-25] MEDS: LOSARTAN 25 MG TAB PO SCH ×2 (12:32→21:36)
[2018-10-25] MEDS: DOXYCYCLINE 100 MG TAB PO SCH ×2 (12:34→21:36)
[2018-10-25] MEDS: LEVOFLOXACIN 500 MG TAB PO SCH (12:34)
[2018-10-25] MEDS ORDERED: traMADol 50 MG TAB PO PRN (13:30)
[2018-10-25] MEDS: SOD CHLORIDE 0.9% 1,000 ML IV SCH ×3 (13:44→22:39)
[2018-10-25] MEDS: oxyCODONE (CR) 10 MG TAB [oxyCONTIN] PO SCH ×2 (14:45→21:37)
[2018-10-25 15:19] VITALS: BP 129/68; PULSE 60; RESP 18
[2018-10-25 16:43] VITALS: Ht 185.4 cm; Wt 132.5 kg
[2018-10-25] MEDS ORDERED: DAKINS 0.0125%(1/40) 473 ML SOLUTION TP SCH (19:30)
[2018-10-25 19:49] VITALS: BP 120/57; PULSE 56; RESP 18
[2018-10-25] MEDS ORDERED: ATORVASTATIN 20 MG TAB PO SCH (21:00)
[2018-10-25] MEDS: HEPARIN 5,000 UNIT/1 ML VIAL SC SCH (21:37)
--- NOTE | 2018-10-25 23:04 | CONS ---
Consultation Date/Type/Reason Admit Date/Time October 25, 2018 at 07:13 Initial Consult Date 10/25/18 Requesting Provider: SHIVAM QUINTANILLA Date/Time of Note DATE: 10/25/18 TIME: 23:04 Exam/Review of Systems Exam Vitals Vital Signs Date Temp Pulse Resp B/P (MAP) Pulse Ox O2 O2 Flow FiO2 Time Delivery Rate 10/25/18 97.9 56 18 120/57 95 19:49 (78) 10/25/18 Room Air 15:19 Results Result Diagram: 10/25/18 0822 10/25/18 0822 Results 24hrs Laboratory Tests Test 10/25/18 08:22 White Blood Count 11.8 H Red Blood Count 4.78 Hemoglobin 11.8 L Hematocrit 39.6 L Mean Corpuscular Volume 82.8 Mean Corpuscular Hemoglobin 24.7 L Mean Corpuscular Hemoglobin Concent 29.8 L Red Cell Distribution Width 16.9 H Platelet Count 303 Mean Platelet Volume 9.3 Immature Granulocytes % 1.200 H Neutrophils % 74.1 Lymphocytes % 18.0 Monocytes % 5.2 Eosinophils % 0.9 Basophils % 0.6 Nucleated Red Blood Cells % 0.0 Immature Granulocytes # 0.140 H Neutrophils # 8.7 H Lymphocytes # 2.1 Monocytes # 0.6 Eosinophils # 0.1 Basophils # 0.1 Nucleated Red Blood Cells # 0.0 Sodium Level 143 Potassium Level 4.6 Chloride Level 107 Carbon Dioxide Level 29 Anion Gap 7 Blood Urea Nitrogen 40 #H Creatinine 1.87 H Est Glomerular Filtrat Rate mL/min 37 L Glucose Level 116 Calcium Level 9.0 Total Bilirubin 0.3 Direct Bilirubin 0.00 Indirect Bilirubin 0.3 Aspartate Amino Transf (AST/SGOT) 18 Alanine Aminotransferase (ALT/SGPT) 15 Alkaline Phosphatase 144 H Total Protein 8.1 Albumin 3.6 Globulin 4.50 H Albumin/Globulin Ratio 0.80 Medications Medication Current Medications Aripiprazole (Abilify) 10 mg DAILY PO ; Start 10/26/18 at 09:00 Ferrous Sulfate (Ferrous Sulfate (Ec)) 325 mg BID PO Last administered on 10/25/18at 21:35; Admin Dose 325 MG; Start 10/25/18 at 11:30 Folic Acid (Folic Acid) 1 mg DAILY PO ; Start 10/25/18 at 11:30 Atorvastatin Calcium (Lipitor) 20 mg DAILY@21 PO Last administered on 10/25/18 21:35; Admin Dose 20 MG; Start 10/25/18 at 21:00 Levofloxacin (Levaquin) 500 mg DAILY@06 PO Last administered on 10/25/18at 12:34; Admin Dose 500 MG; Start 10/25/18 at 11:30 Docusate Sodium (Colace) 100 mg BID PO Last administered on 10/25/18 21:35; A dmin Dose 100 MG; Start 10/25/18 at 11:30 Lactobacillus Acidophilus/ Rhamnosus (Culturelle) 1 cap BID PO Last administered on 10/25/18 21:35; Admin Dose 1 CAP; Start 10/25/18 at 11:30 Heparin Sodium (Porcine) (Heparin (5000 Units/1ml)) 5,000 unit BID SC Last administered on 10/25/18 21:37; Admin Dose 5,000 UNIT; Start 10/25/18 at 21:00 Sodium Chloride 1,000 ml @ 100 mls/hr Q10H IV Last administered on 10/25/18at 22:39; Admin Dose 125 MLS/HR; Start 10/25/18 at 11:30 Doxycycline Hyclate (Vibramycin) 100 mg BID PO Last administered on 10/25/18 21:36; Admin Dose 100 MG; Start 10/25/18 at 12:00 Oxycodone HCl (Oxycontin) 10 mg Q8 PO Last administered on 10/25/18 21:37; Admin Dose 10 MG; Start 10/25/18 at 14:00 Tramadol HCl (Ultram) 100 mg Q6H PRN PO MODERATE PAIN LEVEL 4-6; Start 10/25/18 at 13:30 Hydralazine HCl (Apresoline) 50 mg TID PO ; Start 10/26/18 at 09:00; Status ROSEANNE MUOLTON DPM October 25, 2018 23:04
--- NOTE | 2018-10-25 23:46 | CONS ---
Assessment/Plan Assessment/Plan Assessment/Plan (Daily) Bilateral lower extremity cellulitis Chronic venous hypertension with ulceration b/l lower extremity Lymphedema Pain in limb Venous insufficiency Onychomycosis Tinea pedis Plan: Home VAC is delivered to patient but due to maceration noted to the wound sites recommended betadine dressings with compression. Appreciate ID recommendations. Patient to resume wound VAC once home health nursing is established. Consultation Date/Type/Reason Admit Date/Time October 25, 2018 at 07:13 Date/Time of Note DATE: 10/25/18 TIME: 23:44 Hx of Present Illness 58 y/o M patient with chronic lower extremity ulcerations was being followed in the hospital and left AMA. He now returns with wound VAC tubing still attached to his dressings with moist dressings. Denies additional pedal complaints. ROS Negative except for HPI Past Medical History Medical History: high cholesterol, hypertension, other (Chronic pain ) Home Meds Active Scripts Ferrous Sulfate* (Ferrous Sulfate*) 325 Mg Tabec, 325 MG PO BID, #60 TAB Prov:DANIELLE JIMENEZ V. BIOCHEMISTRY TEACHER 08/25/18 Clindamycin Hcl* (Clindamycin Hcl*) 300 Mg Capsule, 300 MG PO QID, #56 CAP Prov:DANIELLE JIMENEZ V. BIOCHEMISTRY TEACHER 08/24/18 Reported Medications Folic Acid* (Folic Acid*) 1 Mg Tablet, 1 MG PO DAILY, TAB 10/25/18 Hydrocodone/Acetaminophen ([place] 10-325 Tablet) 1 Each Tablet, 1 EACH PO Q6 PRN for PAIN LEVEL 6-10, TAB 10/20/18 Aripiprazole* (Abilify*) 10 Mg Tablet, 10 MG PO DAILY, #30 TAB 08/18/18 Alprazolam* (Xanax*) 2 Mg Tablet, 2 MG PO TID, TAB 08/18/18 Losartan Potassium* (Cozaar*) 25 Mg Tablet, 25 MG PO BID, #60 TAB 08/18/18 Lovastatin (Lovastatin) 40 Mg Tablet, 30 MG PO HS, TAB 08/18/18 Discontinued Scripts Aspirin (Aspirin) 81 Mg Chew, 81 MG PO DAILY, #30 TAB Prov:DANIELLE JIMENEZ V. BIOCHEMISTRY TEACHER 08/24/18 Pentoxifylline* (Pentoxifylline*) 400 Mg Tablet.sa, 400 MG PO TID, #90 TAB Prov:DANIELLE JIMENEZ V. BIOCHEMISTRY TEACHER 08/24/18 Itraconazole* (Itraconazole*) 100 Mg Capsule, 200 MG PO BID, #30 CAP Prov:DANIELLE JIMENEZ V. BIOCHEMISTRY TEACHER 08/24/18 Ciprofloxacin Hcl* (Ciprofloxacin Hcl*) 500 Mg Tablet, 500 MG PO BID@06,18, #30 TAB Prov:DANIELLE JIMENEZ V. BIOCHEMISTRY TEACHER 08/24/18 Medications Current Medications Aripiprazole (Abilify) 10 mg DAILY PO ; Start 10/26/18 at 09:00 Ferrous Sulfate (Ferrous Sulfate (Ec)) 325 mg BID PO Last administered on 10/25/18 21:35; Admin Dose 325 MG; Start 10/25/18 at 11:30 Folic Acid (Folic Acid) 1 mg DAILY PO ; Start 10/25/18 at 11:30 Atorvastatin Calcium (Lipitor) 20 mg DAILY@21 PO Last administered on 10/25/18at 21:35; Admin Dose 20 MG; Start 10/25/18 at 21:00 Levofloxacin (Levaquin) 500 mg DAILY@06 PO Last administered on 10/25/18at 12:34; Admin Dose 500 MG; Start 10/25/18 at 11:30 Docusate Sodium (Colace) 100 mg BID PO Last administered on 10/25/18 21:35; Admin Dose 100 MG; Start 10/25/18 at 11:30 Lactobacillus Acidophilus/ Rhamnosus (Culturelle) 1 cap BID PO Last administered on 10/25/18 21:35; Admin Dose 1 CAP; Start 10/25/18 at 11:30 Heparin Sodium (Porcine) (Heparin (5000 Units/1ml)) 5,000 unit BID SC Last administered on 10/25/18at 21:37; Admin Dose 5,000 UNIT; Start 10/25/18 at 21:00 Sodium Chloride 1,000 ml @ 100 mls/hr Q10H IV Last administered on 10/25/18at 22:39; Admin Dose 125 MLS/HR; Start 10/25/18 at 11:30 Doxycycline Hyclate (Vibramycin) 100 mg BID PO Last administered on 10/25/18at 21:36; Admin Dose 100 MG; Start 10/25/18 at 12:00 Oxycodone HCl (Oxycontin) 10 mg Q8 PO Last administered on 5/17/19at 21:37; Admin Dose 10 MG; Start 10/25/18 at 14:00 Tramadol HCl (Ultram) 100 mg Q6H PRN PO MODERATE PAIN LEVEL 4-6; Start 10/25/18 at 13:30 Hydralazine HCl (Apresoline) 50 mg TID PO ; Start 10/26/18 at 09:00 Allergies: Coded Allergies: milk (Verified Allergy, Severe, diarrhea, 10/25/18) piperacillin (Verified Allergy, Severe, 10/19/18) tazobactam (Verified Allergy, Severe, 10/19/18) Phenothiazines (Verified Allergy, Intermediate, 08/18/18) prochlorperazine (Verified Allergy, Intermediate, 08/18/18) Past Surgical History Past Surgical Hx: noncontributory Social History Alcohol Use: none Smoking Status: Never smoker Drug Use: other (denies) Exam/Review of Systems Exam Vitals Vital Signs Date Temp Pulse Resp B/P (MAP) Pulse Ox O2 O2 Flow FiO2 Time Delivery Rate 10/25/18 97.9 56 18 120/57 95 19:49 (78) 10/25/18 Room Air 15:19 Exam DP/PT pulses palpable Protective sensations intact 2+ pitting edema b/l Right lower extremity ulcer measures 14 x 10.5 x 0.2cm, wound base is granular in nature, no purulence was appreciated, no proximal streaking, no probing to bone. Left lower extremity ulcer measures 15 x 14 x 0.2cm which is granular in nature, no purulence was appreciated, no proximal streaking, no probing to bone Pain with palpation to the ulceration site right worse than left Bilateral wounds appear macerated. 5/5 muscle strength in all compartments of the foot. Results Result Diagram: 10/25/18 0822 10/25/18 0822 Results 24hrs Laboratory Tests Test 10/25/18 08:22 White Blood Count 11.8 H Red Blood Count 4.78 Hemoglobin 11.8 L Hematocrit 39.6 L Mean Corpuscular Volume 82.8 Mean Corpuscular Hemoglobin 24.7 L Mean Corpuscular Hemoglobin Concent 29.8 L Red Cell Distribution Width 16.9 H Platelet Count 303 Mean Platelet Volume 9.3 Immature Granulocytes % 1.200 H Neutrophils % 74.1 Lymphocytes % 18.0 Monocytes % 5.2 Eosinophils % 0.9 Basophils % 0.6 Nucleated Red Blood Cells % 0.0 Immature Granulocytes # 0.140 H Neutrophils # 8.7 H Lymphocytes # 2.1 Monocytes # 0.6 Eosinophils # 0.1 Basophils # 0.1 Nucleated Red Blood Cells # 0.0 Sodium Level 143 Potassium Level 4.6 Chloride Level 107 Carbon Dioxide Level 29 Anion Gap 7 Blood Urea Nitrogen 40 #H Creatinine 1.87 H Est Glomerular Filtrat Rate mL/min 37 L Glucose Level 116 Calcium Level 9.0 Total Bilirubin 0.3 Direct Bilirubin 0.00 Indirect Bilirubin 0.3 Aspartate Amino Transf (AST/SGOT) 18 Alanine Aminotransferase (ALT/SGPT) 15 Alkaline Phosphatase 144 H Total Protein 8.1 Albumin 3.6 Globulin 4.50 H Albumin/Globulin Ratio 0.80 Medications Medication Current Medications Aripiprazole (Abilify) 10 mg DAILY PO ; Start 10/26/18 at 09:00 Ferrous Sulfate (Ferrous Sulfate (Ec)) 325 mg BID PO Last administered on 10/25/18 21:35; Admin Dose 325 MG; Start 10/25/18 at 11:30 Folic Acid (Folic Acid) 1 mg DAILY PO ; Start 10/25/18 at 11:30 Atorvastatin Calcium (Lipitor) 20 mg DAILY@21 PO Last administered on 10/25/18 21:35; Admin Dose 20 MG; Start 10/25/18 at 21:00 Levofloxacin (Levaquin) 500 mg DAILY@06 PO Last administered on 10/25/18at 12:34; Admin Dose 500 MG; Start 10/25/18 at 11:30 Docusate Sodium (Colace) 100 mg BID PO Last administered on 10/25/18 21:35; Admin Dose 100 MG; Start 10/25/18 at 11:30 Lactobacillus Acidophilus/ Rhamnosus (Culturelle) 1 cap BID PO Last administered on 10/25/18 21:35; Admin Dose 1 CAP; Start 10/25/18 at 11:30 Heparin Sodium (Porcine) (Heparin (5000 Units/1ml)) 5,000 unit BID SC Last administered on 10/25/18 21:37; Admin Dose 5,000 UNIT; Start 10/25/18 at 21:00 Sodium Chloride 1,000 ml @ 100 mls/hr Q10H IV Last administered on 10/25/18at 22:39; Admin Dose 125 MLS/HR; Start 10/25/18 at 11:30 Doxycycline Hyclate (Vibramycin) 100 mg BID PO Last administered on 10/25/18at 21:36; Admin Dose 100 MG; Start 10/25/18 at 12:00 Oxycodone HCl (Oxycontin) 10 mg Q8 PO Last administered on 10/25/18at 21:37; Admin Dose 10 MG; Start 10/25/18 at 14:00 Tramadol HCl (Ultram) 100 mg Q6H PRN PO MODERATE PAIN LEVEL 4-6; Start 10/25/18 at 13:30 Hydralazine HCl (Apresoline) 50 mg TID PO ; Start 10/26/18 at 09:00 ROSEANNE BAIRD DPM October 25, 2018 23:46
[2018-10-26 01:21] VITALS: BP 116/60; PULSE 59; RESP 18
[2018-10-26] MEDS: LEVOFLOXACIN 500 MG TAB PO SCH (05:36)
[2018-10-26] MEDS: oxyCODONE (CR) 10 MG TAB [oxyCONTIN] PO SCH ×2 (05:37→12:48)
[2018-10-26] MEDS: SOD CHLORIDE 0.9% 1,000 ML IV SCH ×3 (06:57→17:19)
[2018-10-26 07:28] VITALS: BP 122/70; RESP 18
[2018-10-26 08:40] VITALS: PULSE 53
[2018-10-26] MEDS ORDERED: ARIPIPRAZOLE 10 MG TAB PO SCH (09:00)
[2018-10-26] MEDS: FERROUS SULFATE (EC) 325 MG TAB PO SCH (09:07)
[2018-10-26] MEDS: DOCUSATE SODIUM 100 MG CAP PO SCH (09:07)
[2018-10-26] MEDS: LACTOBACILLUS RHAMNOSUS CAP PO SCH (09:07)
[2018-10-26] MEDS: DOXYCYCLINE 100 MG TAB PO SCH (09:07)
[2018-10-26] MEDS: FOLIC ACID 1 MG TAB PO SCH (09:07)
[2018-10-26] MEDS: HEPARIN 5,000 UNIT/1 ML VIAL SC SCH (09:09)
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
--- NOTE | 2018-10-26 13:12 | CONS ---
Consultation Date/Type/Reason Admit Date/Time October 25, 2018 at 07:13 Initial Consult Date 10/25/18 Type of Consult SUBJECTIVE: Patient is awake, alert, afebrile, resting in bed. No acute events over night. VS: stable T: 97.5 LABS: Reviewed. WBC- 8.2 -Improved. MICROBIOLOGY: Wound cultures grew Pseudomonas, MRSA Enterobacter and strep pyogenous Allergies: Zosyn ===> anaphylaxis Antimicrobials: Doxycycline and Levaquin Physical examination: GEN: Obese well-developed middle-aged man, who is in no distress. HENT: Head atraumatic normocephalic, neck is supple PULM: chest rise symmetrical breath sounds diminished bases Heart: S1-S2 Abdomen: soft, bowel sounds present Extremities: Bilateral lower extremities Miguel Angel wrap Assessment: 1. Bilateral lower extremities acute on chronic cellulitis, status post debridement 2. Morbid obesity 3. History of DVT 4. Hypertension Plan: Pt is stable. Podiatry recommendations noted. D/C pending with current antbx. Requesting Provider: SHIVAM QUINTANILLA Date/Time of Note DATE: 10/26/18 TIME: 13:07 Exam/Review of Systems Exam Vitals Vital Signs Date Temp Pulse Resp B/P (MAP) Pulse Ox O2 O2 Flow FiO2 Time Delivery Rate 10/26/18 53 08:40 10/26/18 97.5 18 122/70 97 07:28 (87) 10/25/18 Room Air 15:19 Intake and Output 10/25/18 10/25/18 10/26/18 1515:00 23:00 07:00 IntakeIntake Total 1000 ml 1000 ml BalanceBalance 1000 ml 1000 ml Results Result Diagram: 10/26/18 0849 10/26/18 0630 Results 24hrs Laboratory Tests Test 10/26/18 06:30 10/26/18 08:49 Sodium Level 140 Potassium Level 4.3 Chloride Level 109 Carbon Dioxide Level 26 Anion Gap 5 Blood Urea Nitrogen 31 H Creatinine 1.10 Est Glomerular Filtrat Rate mL/min > 60 Glucose Level 100 Calcium Level 8.3 L Phosphorus Level 3.6 Magnesium Level 1.9 Total Bilirubin 0.5 Direct Bilirubin 0.00 Indirect Bilirubin 0.5 Aspartate Amino Transf (AST/SGOT) 16 Alanine Aminotransferase (ALT/SGPT) 8 L Alkaline Phosphatase 120 Total Protein 7.1 # Albumin 3.3 White Blood Count 8.2 # Red Blood Count 4.69 L Hemoglobin 11.6 L Hematocrit 38.8 L Mean Corpuscular Volume 82.7 Mean Corpuscular Hemoglobin 24.7 L Mean Corpuscular Hemoglobin Concent 29.9 L Red Cell Distribution Width 17.3 H Platelet Count 267 Mean Platelet Volume 9.3 Immature Granulocytes % 1.100 H Neutrophils % 68.3 Lymphocytes % 23.8 Monocytes % 4.3 Eosinophils % 1.8 Basophils % 0.7 Nucleated Red Blood Cells % 0.0 Immature Granulocytes # 0.090 H Neutrophils # 5.6 Lymphocytes # 2.0 Monocytes # 0.4 Eosinophils # 0.2 Basophils # 0.1 Nucleated Red Blood Cells # 0.0 Medications Medication Current Medications Aripiprazole (Abilify) 10 mg DAILY PO Last administered on 10/26/18 09:09; Admin Dose 10 MG; Start 10/26/18 at 09:00 Ferrous Sulfate (Ferrous Sulfate (Ec)) 325 mg BID PO Last administered on 10/26/18 09:07; Admin Dose 325 MG; Start 10/25/18 at 11:30 Folic Acid (Folic Acid) 1 mg DAILY PO Last administered on 10/26/18 09:07; Admin Dose 1 MG; Start 10/25/18 at 11:30 Atorvastatin Calcium (Lipitor) 20 mg DAILY@21 PO Last administered on 10/25/18 21:35; Admin Dose 20 MG; Start 10/25/18 at 21:00 Levofloxacin (Levaquin) 500 mg DAILY@06 PO Last administered on 10/26/18 05:36; Admin Dose 500 MG; Start 10/25/18 at 11:30 Docusate Sodium (Colace) 100 mg BID PO Last administered on 10/26/18 09:07; Admin Dose 100 MG; Start 10/25/18 at 11:30 Lactobacillus Acidophilus/ Rhamnosus (Culturelle) 1 cap BID PO Last administered on 10/26/18 09:07; Admin Dose 1 CAP; Start 10/25/18 at 11:30 Heparin Sodium (Porcine) (Heparin (5000 Units/1ml)) 5,000 unit BID SC Last administered on 10/26/18 09:09; Admin Dose 5,000 UNIT; Start 10/25/18 at 21:00 Sodium Chloride 1,000 ml @ 100 mls/hr Q10H IV Last administered on 10/26/18 06:57; Admin Dose 100 MLS/HR; Start 10/25/18 at 11:30 Doxycycline Hyclate (Vibramycin) 100 mg BID PO Last administered on 10/26/18 09:07; Admin Dose 100 MG; Start 10/25/18 at 12:00 Oxycodone HCl (Oxycontin) 10 mg Q8 PO Last administered on 10/26/18 05:37; Admin Dose 10 MG; Start 10/25/18 at 14:00 Tramadol HCl (Ultram) 100 mg Q6H PRN PO MODERATE PAIN LEVEL 4-6 Last administered on 10/26/18 11:41; Admin Dose 100 MG; Start 10/25/18 at 13:30 Hydralazine HCl (Apresoline) 50 mg TID PO Last administered on 10/26/18 12:50; Admin Dose 50 MG; Start 10/26/18 at 09:00 BERNADINE DUTTA October 26, 2018 13:12
--- NOTE | 2018-10-26 13:55 | PN ---
Date/Time of Note Date/Time of Note DATE: 10/26/18 TIME: 13:52 Assessment/Plan VTE Prophylaxis Risk score (from Nsg)>0 risk: 3 Pharmacological prophylaxis: heparin Lines/Catheters IV Catheter Type (from Nrsg): Peripheral IV Assessment/Plan Hospital Course 1. Bilateral lower extremity acute on chronic cellulitis with abscess 60 status post debridement with wound VAC application bilaterally c -Wound cultures grew Pseudomonas, MRSA Enterobacter, Corynebacterium and strep pyogenes. -Patient was on Vanco Levaquin prior to leaving -Continue Levaquin, ID following -10/22/18: excisional debridement b/l lower extremity / application of wound VAC bilateral lower extremity / B/l wound tissue biopsy 2. Hypertension: fair control Continue home meds 3. History of DVT status post IVC filter 4. Iron deficiency anemia: Continue ferrous sulfate 5. Depression/anxiety: Continue home med 6. Narcotic seeking behavior: Asking for narcotics by name and by dose, unwillingness to consider alternative drugs for pain 7. Chronic venous hypertension with ulceration b/l lower extremity 8. Lymphedema 9. Venous insufficiency 10. JAY on CKD: Ultrasound showed no abnormality/ nephrology consultation / trend creatinine levels / Vanco alternative ? Prophylaxis: Heparin Dispo: -Obtain final antibiotic recommendations from infectious disease. Case management should arrange home wound VAC on antibiotics. Once this has been set up, patient can be discharged. Result Diagram: 10/26/18 0849 10/26/18 0630 Results 24hrs Laboratory Tests Test 10/26/18 06:30 10/26/18 08:49 Sodium Level 140 Potassium Level 4.3 Chloride Level 109 Carbon Dioxide Level 26 Anion Gap 5 Blood Urea Nitrogen 31 H Creatinine 1.10 Est Glomerular Filtrat Rate mL/min > 60 Glucose Level 100 Calcium Level 8.3 L Phosphorus Level 3.6 Magnesium Level 1.9 Total Bilirubin 0.5 Direct Bilirubin 0.00 Indirect Bilirubin 0.5 Aspartate Amino Transf (AST/SGOT) 16 Alanine Aminotransferase (ALT/SGPT) 8 L Alkaline Phosphatase 120 Total Protein 7.1 # Albumin 3.3 White Blood Count 8.2 # Red Blood Count 4.69 L Hemoglobin 11.6 L Hematocrit 38.8 L Mean Corpuscular Volume 82.7 Mean Corpuscular Hemoglobin 24.7 L Mean Corpuscular Hemoglobin Concent 29.9 L Red Cell Distribution Width 17.3 H Platelet Count 267 Mean Platelet Volume 9.3 Immature Granulocytes % 1.100 H Neutrophils % 68.3 Lymphocytes % 23.8 Monocytes % 4.3 Eosinophils % 1.8 Basophils % 0.7 Nucleated Red Blood Cells % 0.0 Immature Granulocytes # 0.090 H Neutrophils # 5.6 Lymphocytes # 2.0 Monocytes # 0.4 Eosinophils # 0.2 Basophils # 0.1 Nucleated Red Blood Cells # 0.0 Subjective 24 Hr Interval Summary Constitutional: no complaints Exam/Review of Systems Exam Vitals Vital Signs Date Temp Pulse Resp B/P (MAP) Pulse Ox O2 O2 Flow FiO2 Time Delivery Rate 10/26/18 53 08:40 10/26/18 97.5 18 122/70 97 07:28 (87) 10/25/18 Room Air 15:19 Intake and Output 10/25/18 10/25/18 10/26/18 1515:00 23:00 07:00 IntakeIntake Total 1000 ml 1000 ml BalanceBalance 1000 ml 1000 ml Constitutional: alert, oriented Respiratory: clear to auscultation Cardiovascular: regular rate and rhythm Gastrointestinal: soft; No distended Musculoskeletal: No nl extremities to inspection Results Results 24hrs Laboratory Tests Test 10/26/18 06:30 10/26/18 08:49 Sodium Level 140 Potassium Level 4.3 Chloride Level 109 Carbon Dioxide Level 26 Anion Gap 5 Blood Urea Nitrogen 31 H Creatinine 1.10 Est Glomerular Filtrat Rate mL/min > 60 Glucose Level 100 Calcium Level 8.3 L Phosphorus Level 3.6 Magnesium Level 1.9 Total Bilirubin 0.5 Direct Bilirubin 0.00 Indirect Bilirubin 0.5 Aspartate Amino Transf (AST/SGOT) 16 Alanine Aminotransferase (ALT/SGPT) 8 L Alkaline Phosphatase 120 Total Protein 7.1 # Albumin 3.3 White Blood Count 8.2 # Red Blood Count 4.69 L Hemoglobin 11.6 L Hematocrit 38.8 L Mean Corpuscular Volume 82.7 Mean Corpuscular Hemoglobin 24.7 L Mean Corpuscular Hemoglobin Concent 29.9 L Red Cell Distribution Width 17.3 H Platelet Count 267 Mean Platelet Volume 9.3 Immature Granulocytes % 1.100 H Neutrophils % 68.3 Lymphocytes % 23.8 Monocytes % 4.3 Eosinophils % 1.8 Basophils % 0.7 Nucleated Red Blood Cells % 0.0 Immature Granulocytes # 0.090 H Neutrophils # 5.6 Lymphocytes # 2.0 Monocytes # 0.4 Eosinophils # 0.2 Basophils # 0.1 Nucleated Red Blood Cells # 0.0 Medications Medication Current Medications Aripiprazole (Abilify) 10 mg DAILY PO Last administered on 10/26/18 09:09; Admin Dose 10 MG; Start 10/26/18 at 09:00 Ferrous Sulfate (Ferrous Sulfate (Ec)) 325 mg BID PO Last administered on 10/26/18 09:07; Admin Dose 325 MG; Start 10/25/18 at 11:30 Folic Acid (Folic Acid) 1 mg DAILY PO Last administered on 10/26/18 09:07; Admin Dose 1 MG; Start 10/25/18 at 11:30 Atorvastatin Calcium (Lipitor) 20 mg DAILY@21 PO Last administered on 10/25/18 21:35; Admin Dose 20 MG; Start 10/25/18 at 21:00 Levofloxacin (Levaquin) 500 mg DAILY@06 PO Last administered on 10/26/18 05:36; Admin Dose 500 MG; Start 10/25/18 at 11:30 Docusate Sodium (Colace) 100 mg BID PO Last administered on 10/26/18 09:07; Admin Dose 100 MG; Start 10/25/18 at 11:30 Lactobacillus Acidophilus/ Rhamnosus (Culturelle) 1 cap BID PO Last administered on 10/26/18 09:07; Admin Dose 1 CAP; Start 10/25/18 at 11:30 Heparin Sodium (Porcine) (Heparin (5000 Units/1ml)) 5,000 unit BID SC Last administered on 10/26/18 09:09; Admin Dose 5,000 UNIT; Start 10/25/18 at 21:00 Sodium Chloride 1,000 ml @ 100 mls/hr Q10H IV Last administered on 10/26/18 06:57; Admin Dose 100 MLS/HR; Start 10/25/18 at 11:30 Doxycycline Hyclate (Vibramycin) 100 mg BID PO Last administered on 10/26/18 09:07; Admin Dose 100 MG; Start 10/25/18 at 12:00 Oxycodone HCl (Oxycontin) 10 mg Q8 PO Last administered on 10/26/18 05:37; Admin Dose 10 MG; Start 10/25/18 at 14:00 Tramadol HCl (Ultram) 100 mg Q6H PRN PO MODERATE PAIN LEVEL 4-6 Last administered on 10/26/18at 11:41; Admin Dose 100 MG; Start 10/25/18 at 13:30 Hydralazine HCl (Apresoline) 50 mg TID PO Last administered on 10/26/18 12:50; Admin Dose 50 MG; Start 10/26/18 at 09:00 TONNY MARTI October 26, 2018 13:55
[2018-10-26 15:10] VITALS: BP 164/73; PULSE 55; RESP 18
[2018-10-26] MEDS ORDERED: HYDROCODONE/APAP (5/325) TAB PO ONE (17:00)
--- NOTE | 2018-10-26 17:11 | CONS ---
Assessment/Plan Assessment/Plan Assessment/Plan (Daily) Bilateral lower extremity lymphedema Bilateral lower extremity cellulitis Pain syndrome, incomplete database, patient less than cooperative with pain management history History of hypertension Suggest no methadone I do not see an indication to start this gentleman off on relatively high dose of methadone that he states he was on as an outpatient. We will begin OxyContin 10 mg 3 times a day and as needed doses of tramadol. Consultation Date/Type/Reason Admit Date/Time October 25, 2018 at 07:13 Date/Time of Note DATE: 10/26/18 TIME: 17:03 Hx of Present Illness Patient seen and examined. He is a difficult historian and his story continues to change. Admitted to [facility] third hospitalization first 2 hospitalizations patient signed out AGAINST MEDICAL ADVICE. Patient has a history of bilateral lower extremity chronic stasis cellulitis status post debridement VAC placement. Comorbid medical problems include a history of hypertension, DVT, venous insufficiency, chronic lymphedema bilateral lower extremities and history of narcotic seeking behavior. Recent MRI showed evidence of osteomyelitis. I am asked see patient in pain management consultation. Patient describes his pain is 10/10 states that any medication he is taken for pain control recently has not worked at all to control his extreme pain. Visually he is comfortable he is speaking in sentences.. States that pain is interferes with his physical functioning family relationship mood sleeping patterns. Denies nausea vomiting constipation itchiness mental cloudiness fatigue sweating drowsiness. He is negotiating for opioids and states that he has recently been switched to methadone by a primary care physician after he states he was taking large doses of [place]. Further questioning of the rationale for taking methadone was not clear and patient was somewhat evasive with his answers. Patient does not appear to be intoxicated but he is unkempt. He is asking for certain pain medications by name denies a history of IV drug abuse denies history of contact with street drug culture states he is a non-drinker non-smoker denies a history of altercations with police denies history of suicide ideations. Past Medical History Medical History: high cholesterol, hypertension, other (Chronic pain ) Home Meds Active Scripts Ferrous Sulfate* (Ferrous Sulfate*) 325 Mg Tabec, 325 MG PO BID, #60 TAB Prov:DANIELLE JIMENEZ V. BUCKET TURNER 08/25/18 Clindamycin Hcl* (Clindamycin Hcl*) 300 Mg Capsule, 300 MG PO QID, #56 CAP Prov:DANIELLE JIMENEZ V. BUCKET TURNER 08/24/18 Reported Medications Folic Acid* (Folic Acid*) 1 Mg Tablet, 1 MG PO DAILY, TAB 10/25/18 Hydrocodone/Acetaminophen ([place] 10-325 Tablet) 1 Each Tablet, 1 EACH PO Q6 PRN for PAIN LEVEL 6-10, TAB 10/20/18 Aripiprazole* (Abilify*) 10 Mg Tablet, 10 MG PO DAILY, #30 TAB 08/18/18 Alprazolam* (Xanax*) 2 Mg Tablet, 2 MG PO TID, TAB 08/18/18 Losartan Potassium* (Cozaar*) 25 Mg Tablet, 25 MG PO BID, #60 TAB 08/18/18 Lovastatin (Lovastatin) 40 Mg Tablet, 30 MG PO HS, TAB 08/18/18 Discontinued Scripts Aspirin (Aspirin) 81 Mg Chew, 81 MG PO DAILY, #30 TAB Prov:DANIELLE JIMENEZ V. BUCKET TURNER 08/24/18 Pentoxifylline* (Pentoxifylline*) 400 Mg Tablet.sa, 400 MG PO TID, #90 TAB Prov:DANIELLE JIMENEZ V. BUCKET TURNER 08/24/18 Itraconazole* (Itraconazole*) 100 Mg Capsule, 200 MG PO BID, #30 CAP Prov:DANIELLE JIMENEZ V. BUCKET TURNER 08/24/18 Ciprofloxacin Hcl* (Ciprofloxacin Hcl*) 500 Mg Tablet, 500 MG PO BID@06,18, #30 TAB Prov:DANIELLE JIMENEZ V. BUCKET TURNER 08/24/18 Medications Current Medications Aripiprazole (Abilify) 10 mg DAILY PO Last administered on 10/26/18at 09:09; Admin Dose 10 MG; Start 10/26/18 at 09:00 Ferrous Sulfate (Ferrous Sulfate (Ec)) 325 mg BID PO Last administered on 10/26/18at 09:07; Admin Dose 325 MG; Start 10/25/18 at 11:30 Folic Acid (Folic Acid) 1 mg DAILY PO Last administered on 10/26/18at 09:07; Admin Dose 1 MG; Start 10/25/18 at 11:30 Atorvastatin Calcium (Lipitor) 20 mg DAILY@21 PO Last administered on 10/25/18at 21:35; Admin Dose 20 MG; Start 10/25/18 at 21:00 Levofloxacin (Levaquin) 500 mg DAILY@06 PO Last administered on 10/26/18at 05:36; Admin Dose 500 MG; Start 10/25/18 at 11:30 Docusate Sodium (Colace) 100 mg BID PO Last administered on 10/26/18at 09:07; Admin Dose 100 MG; Start 10/25/18 at 11:30 Lactobacillus Acidophilus/ Rhamnosus (Culturelle) 1 cap BID PO Last administered on 10/26/18at 09:07; Admin Dose 1 CAP; Start 10/25/18 at 11:30 Heparin Sodium (Porcine) (Heparin (5000 Units/1ml)) 5,000 unit BID SC Last administered on 10/26/18at 09:09; Admin Dose 5,000 UNIT; Start 10/25/18 at 21:00 Sodium Chloride 1,000 ml @ 100 mls/hr Q10H IV Last administered on 10/26/18at 06:57; Admin Dose 100 MLS/HR; Start 10/25/18 at 11:30 Doxycycline Hyclate (Vibramycin) 100 mg BID PO Last administered on 10/26/18at 09:07; Admin Dose 100 MG; Start 10/25/18 at 12:00 Oxycodone HCl (Oxycontin) 10 mg Q8 PO Last administered on 10/26/18at 05:37; Admin Dose 10 MG; Start 10/25/18 at 14:00 Hydralazine HCl (Apresoline) 50 mg TID PO Last administered on 10/26/18at 12:50; Admin Dose 50 MG; Start 10/26/18 at 09:00 Hydromorphone HCl (Dilaudid) 2 mg Q4H PRN IV SEVERE PAIN LEVEL 7-10; Start 10/26/18 at 16:30 Acetaminophen/ Hydrocodone Bitart ([place] (5/325)) 1 tab ONCE ONCE PO ; Start 10/26/18 at 17:00; Stop 10/26/18 at 17:01 Allergies: Coded Allergies: milk (Verified Allergy, Severe, diarrhea, 10/25/18) piperacillin (Verified Allergy, Severe, 10/19/18) tazobactam (Verified Allergy, Severe, 10/19/18) Phenothiazines (Verified Allergy, Intermediate, 08/18/18) prochlorperazine (Verified Allergy, Intermediate, 08/18/18) Past Surgical History Past Surgical Hx: noncontributory Social History Alcohol Use: none Smoking Status: Never smoker Drug Use: none, other (denies) Exam/Review of Systems Exam Vitals Vital Signs Date Temp Pulse Resp B/P (MAP) Pulse Ox O2 O2 Flow FiO2 Time Delivery Rate 10/26/18 98.3 55 18 164/73 97 15:10 (103) 10/25/18 Room Air 15: Intake and Output 10/25/18 10/25/18 10/26/18 1515:00 23:00 07:00 IntakeIntake Total 1000 ml 1000 ml BalanceBalance 1000 ml 1000 ml Constitutional: alert, oriented, well developed Psych: no complaints, nl mood/affect Head: normocephalic, atraumatic ENMT: nl external ears & nose, nl lips & teeth, nl nasal mucosa & septum Respiratory: clear to auscultation, normal air movement Musculoskeletal: other (Bilateral lower extremities bandaged) Neurological: SEW[employer] SUPER[employer]OR II-XII intact, nl mental status, nl speech, nl strength Results Result Diagram: 10/26/18 0849 10/26/18 0630 Results 24hrs Laboratory Tests Test 10/26/18 06:30 10/26/18 08:49 Sodium Level 140 Potassium Level 4.3 Chloride Level 109 Carbon Dioxide Level 26 Anion Gap 5 Blood Urea Nitrogen 31 H Creatinine 1.10 Est Glomerular Filtrat Rate mL/min > 60 Glucose Level 100 Calcium Level 8.3 L Phosphorus Level 3.6 Magnesium Level 1.9 Total Bilirubin 0.5 Direct Bilirubin 0.00 Indirect Bilirubin 0.5 Aspartate Amino Transf (AST/SGOT) 16 Alanine Aminotransferase (ALT/SGPT) 8 L Alkaline Phosphatase 120 Total Protein 7.1 # Albumin 3.3 White Blood Count 8.2 # Red Blood Count 4.69 L Hemoglobin 11.6 L Hematocrit 38.8 L Mean Corpuscular Volume 82.7 Mean Corpuscular Hemoglobin 24.7 L Mean Corpuscular Hemoglobin Concent 29.9 L Red Cell Distribution Width 17.3 H Platelet Count 267 Mean Platelet Volume 9.3 Immature Granulocytes % 1.100 H Neutrophils % 68.3 Lymphocytes % 23.8 Monocytes % 4.3 Eosinophils % 1.8 Basophils % 0.7 Nucleated Red Blood Cells % 0.0 Immature Granulocytes # 0.090 H Neutrophils # 5.6 Lymphocytes # 2.0 Monocytes # 0.4 Eosinophils # 0.2 Basophils # 0.1 Nucleated Red Blood Cells # 0.0 Medications Medication Current Medications Aripiprazole (Abilify) 10 mg DAILY PO Last administered on 10/26/18 09:09; Admin Dose 10 MG; Start 10/26/18 at 09:00 Ferrous Sulfate (Ferrous Sulfate (Ec)) 325 mg BID PO Last administered on 10/26/18 09:07; Admin Dose 325 MG; Start 10/25/18 at 11:30 Folic Acid (Folic Acid) 1 mg DAILY PO Last administered on 10/26/18 09:07; Admin Dose 1 MG; Start 10/25/18 at 11:30 Atorvastatin Calcium (Lipitor) 20 mg DAILY@21 PO Last administered on 10/25/18 21:35; Admin Dose 20 MG; Start 10/25/18 at 21:00 Levofloxacin (Levaquin) 500 mg DAILY@06 PO Last administered on 10/26/18 05:36; Admin Dose 500 MG; Start 10/25/18 at 11:30 Docusate Sodium (Colace) 100 mg BID PO Last administered on 10/26/18 09:07; Admin Dose 100 MG; Start 10/25/18 at 11:30 Lactobacillus Acidophilus/ Rhamnosus (Culturelle) 1 cap BID PO Last administered on 10/26/18 09:07; Admin Dose 1 CAP; Start 10/25/18 at 11:30 Heparin Sodium (Porcine) (Heparin (5000 Units/1ml)) 5,000 unit BID SC Last administered on 10/26/18 09:09; Admin Dose 5,000 UNIT; Start 10/25/18 at 21:00 Sodium Chloride 1,000 ml @ 100 mls/hr Q10H IV Last administered on 10/26/18 06:57; Admin Dose 100 MLS/HR; Start 10/25/18 at 11:30 Doxycycline Hyclate (Vibramycin) 100 mg BID PO Last administered on 10/26/18 09:07; Admin Dose 100 MG; Start 10/25/18 at 12:00 Oxycodone HCl (Oxycontin) 10 mg Q8 PO Last administered on 10/26/18 05:37; Admin Dose 10 MG; Start 10/25/18 at 14:00 Hydralazine HCl (Apresoline) 50 mg TID PO Last administered on 10/26/18at 12:50; Admin Dose 50 MG; Start 10/26/18 at 09:00 Hydromorphone HCl (Dilaudid) 2 mg Q4H PRN IV SEVERE PAIN LEVEL 7-10; Start 10/26/18 at 16:30 Acetaminophen/ Hydrocodone Bitart ([place] (5/325)) 1 tab ONCE ONCE PO ; Start 10/26/18 at 17:00; Stop 10/26/18 at 17:01 PRITI PENA October 26, 2018 17:11
[2018-10-26] MEDS: HYDROmorphONE 2 MG/ML SYG IV PRN ×2 (17:19→18:39)
--- NOTE | 2018-10-27 01:09 | CONS ---
Assessment/Plan Assessment/Plan Assessment/Plan (Daily) 1. acute kidney injury on CKD II 2/2 Prerenal azotemia + ATN - BUN trended down to 31, Cr - 1/10 wnl 2. acute on chronic Bilateral LE cellulitis 3. H/o HTN 4. h/O DVT s/p IVF filter 5. Iron deficiency Anemia 6. Depression/anxiety 6. Narcotic seeking behavior 7. Chronic venous hypertension with ulceration b/l lower extremity 8. Lymphedema Plan: stop Losartan due to JAY cont hydralazine 50mg PO TID IVF NS at 100 cc/hr Continue other home meds IV abx as per ID, Renally dose all abx and monitor electorlytes will conitnue to follow up Patient seen in collaboration with Dr Mayito Staples. dw staff Consultation Date/Type/Reason Admit Date/Time October 25, 2018 at 07:13 Initial Consult Date 10/25/18 Type of Consult NEPHRO Reason for Consultation acute kidney injury on CKD Requesting Provider: SHIVAM QUINTANILLA Date/Time of Note DATE: 10/27/18 TIME: 01:08 24 HR Interval Summary Free Text/Dictation 10/26/18 ENTRY NAD Creatinine 1,10 today BUN trended down to 31 today Feels better good UO no new issues reported last night dw staff Detailed Summary Eyes: no complaints ENT: no complaints Respiratory: no complaints Cardiovascular: no complaints Gastrointestinal: no complaints Genitourinary: no complaints Musculoskeletal: no complaints, swelling Skin: other (BLE skin changes) Neurologic: no complaints Endocrine: no complaints Lymphatic: no complaints Exam/Review of Systems Exam Vitals Vital Signs Date Temp Pulse Resp B/P (MAP) Pulse Ox O2 O2 Flow FiO2 Time Delivery Rate 10/26/18 98.3 55 18 164/73 97 15:10 (103) 10/25/18 Room Air 15:19 Intake and Output 10/26/18 10/26/18 10/27/18 1515:00 23:00 07:00 IntakeIntake Total 1080 ml 360 ml BalanceBalance 1080 ml 360 ml Constitutional: alert, well developed, obese Eyes: nl lids ENMT: nl external ears & nose Neck: non-tender Respiratory: clear to auscultation Cardiovascular: nl pulses, other (s1s2) Gastrointestinal: non-tender Musculoskeletal: muscle weakness Extremities: normal pulses, edema Neurological: other (alert/responsive) Results Result Diagram: 10/26/18 0849 10/26/18 0630 Results 24hrs Laboratory Tests Test 10/26/18 06:30 10/26/18 08:49 Sodium Level 140 Potassium Level 4.3 Chloride Level 109 Carbon Dioxide Level 26 Anion Gap 5 Blood Urea Nitrogen 31 H Creatinine 1.10 Est Glomerular Filtrat Rate mL/min > 60 Glucose Level 100 Calcium Level 8.3 L Phosphorus Level 3.6 Magnesium Level 1.9 Total Bilirubin 0.5 Direct Bilirubin 0.00 Indirect Bilirubin 0.5 Aspartate Amino Transf (AST/SGOT) 16 Alanine Aminotransferase (ALT/SGPT) 8 L Alkaline Phosphatase 120 Total Protein 7.1 # Albumin 3.3 White Blood Count 8.2 # Red Blood Count 4.69 L Hemoglobin 11.6 L Hematocrit 38.8 L Mean Corpuscular Volume 82.7 Mean Corpuscular Hemoglobin 24.7 L Mean Corpuscular Hemoglobin Concent 29.9 L Red Cell Distribution Width 17.3 H Platelet Count 267 Mean Platelet Volume 9.3 Immature Granulocytes % 1.100 H Neutrophils % 68.3 Lymphocytes % 23.8 Monocytes % 4.3 Eosinophils % 1.8 Basophils % 0.7 Nucleated Red Blood Cells % 0.0 Immature Granulocytes # 0.090 H Neutrophils # 5.6 Lymphocytes # 2.0 Monocytes # 0.4 Eosinophils # 0.2 Basophils # 0.1 Nucleated Red Blood Cells # 0.0 LIEN OTTO October 27, 2018 01:09
== END 2018-10-26 18:05 | disposition left against medical advice (07) | DRG 603 ==
LOC: E/R 04:47 → TEL 07:13 → 5EC 15:05
PROVIDERS: ADMIT Family Medicine; ATTEND Internal Medicine
DX: L03.116 Cellulitis of left lower limb (principal); N17.9 Acute kidney failure, unspecified; L97.819 Non-pressure chronic ulcer of other part of right lower leg with unspecified severity; L97.829 Non-pressure chronic ulcer of other part of left lower leg with unspecified severity; F33.2 Major depressive disorder, recurrent severe without psychotic features; L03.115 Cellulitis of right lower limb; I10 Essential (primary) hypertension; Z86.718 Personal history of other venous thrombosis and embolism; I12.9 Hypertensive chronic kidney disease with stage 1 through stage 4 chronic kidney disease, or unspecified chronic kidney disease; N18.2 Chronic kidney disease, stage 2 (mild); D50.9 Iron deficiency anemia, unspecified; Z76.5 Malingerer [conscious simulation]; B96.5 Pseudomonas (aeruginosa) (mallei) (pseudomallei) as the cause of diseases classified elsewhere; B95.62 Methicillin resistant Staphylococcus aureus infection as the cause of diseases classified elsewhere; B95.4 Other streptococcus as the cause of diseases classified elsewhere; E66.9 Obesity, unspecified; Z68.38 Body mass index [BMI] 38.0-38.9, adult; I83.018 Varicose veins of right lower extremity with ulcer other part of lower leg; I83.028 Varicose veins of left lower extremity with ulcer other part of lower leg; B35.1 Tinea unguium
CPT/HCPCS: 36415; 80048; 80053; 80076; 83735; 84100; 85025; J0400; J1170; J1644; J7030